=== PATIENT | male | born 1955 | race Caucasian/White ===

== ENCOUNTER 2017-02-12 11:17 | Emergency (ER) | payer MEDICARE, BC ==
[2017-02-12] MEDS ORDERED: Sodium Chloride 0.9% 2.5 ML Syringe FLUSH PRN (11:25)
[2017-02-12] MEDS ORDERED: Sodium Chloride 0.9% 10 ML Syringe FLUSH PRN (11:25)
[2017-02-12] MEDS ORDERED: Aspirin 81 MG Tab.Chew PO ONE (11:26)
--- NOTE | 2017-02-12 11:42 | EDM.PDOC ---
ED HPI GENERAL MEDICAL PROBLEM - General Chief Complaint: Respiratory Problem Stated Complaint: SOB Time Seen by Provider: 02/12/17 11:24 Source of Information: Reports: Patient History Limitations: Reports: No Limitations - History of Present Illness INITIAL COMMENTS - FREE TEXT/NARRATIVE: History of present illness: []Patient started developing substernal chest pain yesterday evening that was described as pain of a 4/10 and has continued to the night into this morning. Patient has a history of COPD and has had been diagnosed with an enlarged heart. He denies any sweating, dizziness, lightheadedness, nausea, vomiting or syncope. Review of systems: As per history of present illness and below otherwise all systems reviewed and negative. Past medical history: As per history of present illness and as reviewed below otherwise noncontributory. Surgical history: As per history of present illness and as reviewed below otherwise noncontributory. Social history: No reported history of drug or alcohol abuse. Family history: As per history of present illness and as reviewed below otherwise noncontributory. Physical exam: General: Well developed, well nourished in NAD HEENT: Atraumatic, normocephalic, pupils reactive, negative for conjunctival pallor or scleral icterus, mucous membranes moist, throat clear, neck supple, nontender, trachea midline. Lungs: Clear to auscultation, breath sounds equal bilaterally expiratory wheezing noted no respiratory distress, chest nontender. Heart: S1S2, regular, negative for clicks, rubs, or JVD. Abdomen: Soft, nondistended, nontender. Negative for masses or hepatosplenomegaly. Negative for costovertebral tenderness. Pelvis: Stable nontender. Genitourinary: Deferred. Rectal: Deferred. Extremities: Atraumatic, negative for cords or calf pain. Neurovascular unremarkable. Neuro: Awake, alert, oriented. Cranial nerves II through XII unremarkable. Cerebellum unremarkable. Motor and sensory unremarkable throughout. Exam nonfocal. Diagnostics: []Chest x-ray and labs are normal Therapeutics: []DuoNeb Solu-Medrol nitroglycerin and aspirin given Impression: []COPD exacerbation Plan: []Continue regular meds at home to use prednisone Dosepak as directed follow-up with her primary care physician next available appointment return to ER if symptoms worsen or change Definitive disposition and diagnosis as appropriate pending reevaluation and review of above. Left Chest Pain Score (Numeric/FACES): 5 - Related Data Allergies Allergy/AdvReac Type Severity Reaction Status Date / Time Sulfa (Sulfonamide Allergy Hives Verified 02/12/17 11:30 Antibiotics) Home Meds: Home Meds Albuterol Sulfate 1 inh NEB QID PRN 04/18/15 [History] Allopurinol [Zyloprim] 300 mg PO DAILY 04/18/15 [History] FLUoxetine [PROzac] 20 mg PO DAILY 04/18/15 [History] LORazepam 1 tab PO TID PRN 04/18/15 [History] Fluticasone/Vilanterol [Breo Ellipta 100-25 MCG Inhalation Kit] 1 puff INH DAILY #1 each 01/25/16 [Rx] Montelukast [Singulair] 10 mg PO BEDTIME #30 tablet 01/25/16 [Rx] Furosemide 40 mg PO BID 02/12/17 [History] Lisinopril 20 mg PO DAILY 02/12/17 [History] Umeclidinium [place] [Incruse Ellipta*] 62.5 mg INH DAILY 02/12/17 [History] predniSONE [Prednisone] 10 mg PO ASDIRECTED #1 tab.ds.pk 02/12/17 [Rx] Past Medical History HEENT History: Reports: Cataract Cardiovascular History: Reports: Hypertension Respiratory History: Reports: COPD, Sleep Apnea Other Respiratory History: cpap and 2 L home o2 Gastrointestinal History: Reports: None Musculoskeletal History: Reports: Gout Neurological History: Reports: None Psychiatric History: Reports: Anxiety Endocrine/Metabolic History: Reports: Obesity/BMI 30+ - Infectious Disease History Infectious Disease History: Reports: Chicken Pox, Measles, Mumps - Past Surgical History GI Surgical History: Reports: Hernia, Abdominal Musculoskeletal Surgical History: Reports: Knee Replacement Social & Family History - Family History Family Medical History: Noncontributory HEENT: Reports: None Cardiac: Reports: None Respiratory: Reports: Asthma, COPD GI: Reports: None : Reports: None OBGYN: Reports: None Musculoskeletal: Reports: None Neurological: Reports: None Psychiatric: Reports: None Endocrine/Metabolic: Reports: Diabetes, type II Hematologic: Reports: None Immunologic: Reports: None Dermatologic: Reports: None Oncologic: Reports: Other (See Below) Other Oncologic Family History: sister had cancer but he wouldn't know which type - Tobacco Use Smoking Status *Q: Never Smoker Years of Tobacco use: 48 Used Tobacco, but Quit: No Second Hand Smoke Exposure: No - Caffeine Use Caffeine Use: Reports: None - Recreational Drug Use Recreational Drug Use: No ED ROS GENERAL - Review of Systems Review Of Systems: See Below (See history of present illness) ED EXAM, GENERAL - Physical Exam Exam: See Below (See history of present illness) Course - Vital Signs Last Recorded V/S: Last Vital Signs Temp 36.4 C 02/12/17 11:21 Pulse 87 02/12/17 12:37 Resp 20 02/12/17 12:37 BP 124/64 02/12/17 12:37 Pulse Ox 99 02/12/17 12:37 - Orders/Labs/Meds Orders: Active Orders 24 hr Category Date Time Status Cardiac Monitoring [RC] . DIRECTED Care 02/12/17 11:24 Active RT Aerosol Therapy [RC] ASDIRECTED Care 02/12/17 11:53 Active RT Aerosol Therapy [RC] ASDIRECTED Care 02/12/17 12:25 Active Sodium Chloride 0.9% [Normal Saline] 1,000 ml Med 02/12/17 11:57 Active IV .Bolus Sodium Chloride 0.9% [Saline Flush] Med 02/12/17 11:25 Active 10 ml FLUSH ASDIRECTED PRN Sodium Chloride 0.9% [Saline Flush] Med 02/12/17 11:25 Active 2.5 ml FLUSH ASDIRECTED PRN Saline Lock Insert [OM.PC] Stat Oth 02/12/17 11:25 Ordered Medication Orders Sodium Chloride (Normal Saline) 1,000 mls @ 999 mls/hr IV .Bolus ONE Stop: 02/12/17 12:57 Last Admin: 02/12/17 12:00 Dose: 999 mls/hr Sodium Chloride (Saline Flush) 10 ml FLUSH ASDIRECTED PRN PRN Reason: Keep Vein Open Last Admin: 02/12/17 11:50 Dose: 10 ml Sodium Chloride (Saline Flush) 2.5 ml FLUSH ASDIRECTED PRN PRN Reason: Keep Vein Open Last Admin: 02/12/17 11:53 Dose: 2.5 ml Labs: Laboratory Tests 02/12/17 02/12/17 02/12/17 Range/Units 11:49 11:49 11:49 WBC 8.93 (4.0-11.0) K/uL RBC 4.04 L (4.50-5.90) M/uL Hgb 13.1 (13.0-17.0) g/dL Hct 39.8 (38.0-50.0) % MCV 98.5 H (80.0-98.0) fL MCH 32.4 H (27.0-32.0) pg MCHC 32.9 (31.0-37.0) g/dL RDW Std Deviation 48.7 (28.0-62.0) fl RDW Coeff of Dean 14 (11.0-15.0) % Plt Count 231 (150-400) K/uL MPV 10.60 (7.40-12.00) fL Neut % (Auto) 73.9 (48.0-80.0) % Lymph % (Auto) 16.0 (16.0-40.0) % [place] % (Auto) 7.6 (0.0-15.0) % Eos % (Auto) 2.1 (0.0-7.0) % Baso % (Auto) 0.4 (0.0-1.5) % Neut # (Auto) 6.6 H (1.4-5.7) K/uL Lymph # (Auto) 1.4 (0.6-2.4) K/uL [place] # (Auto) 0.7 (0.0-0.8) K/uL Eos # (Auto) 0.2 (0.0-0.7) K/uL Baso # (Auto) 0.0 (0.0-0.1) K/uL Nucleated RBC % 0.0 /100WBC Nucleated RBCs # 0 K/uL Sodium 143 (136-146) mmol/L Potassium 4.3 (3.5-5.1) mmol/L Chloride 109 (98-110) mmol/L Carbon Dioxide 27 (21-31) mmol/L BUN 26 H (6.0-23.0) mg/dL Creatinine 0.9 (0.6-1.5) mg/dL Est Cr Clr Drug Dosing 81.28 mL/min Estimated GFR (MDRD) > 60.0 ml/min Glucose 95 (60-110) mg/dL Calcium 8.8 (8.8-10.8) mg/dL Total Bilirubin 0.4 (0.1-1.5) mg/dL AST 21 (5-40) IU/L ALT 27 (8-54) IU/L Alkaline Phosphatase 75 (40-150) Troponin I < 0.10 (0.0-0.29) NG/ML B-Natriuretic Peptide 49 (<100) PG/ML Total Protein 6.1 (6.0-8.0) g/dL Albumin 3.9 (3.4-4.8) g/dL Globulin 2.2 (2.0-3.5) g/dL Albumin/Globulin Ratio 1.8 (1.3-2.8) Meds: Medications Generic Name Dose Route Start Last Admin Trade Name Freq PRN Reason Stop Dose Admin Sodium Chloride 1,000 mls @ 999 mls/hr 02/12/17 11:57 02/12/17 12:00 Normal Saline IV 02/12/17 12:57 999 mls/hr .Bolus ONE Administration Sodium Chloride 10 ml 02/12/17 11:25 02/12/17 11:50 Saline Flush FLUSH 10 ml ASDIRECTED PRN Administration Keep Vein Open Sodium Chloride 2.5 ml 02/12/17 11:25 02/12/17 11:53 Saline Flush FLUSH 2.5 ml ASDIRECTED PRN Administration Keep Vein Open Discontinued Medications Generic Name Dose Route Start Last Admin Trade Name Freq PRN Reason Stop Dose Admin Albuterol 2.5 mg 02/12/17 12:25 02/12/17 12:31 Proventil Neb Soln NEB 02/12/17 12:26 2.5 mg ONETIME ONE Administration Albuterol/Ipratropium 3 ml 02/12/17 11:53 02/12/17 12:01 Duoneb 3.0-0.5 Mg/3 Ml NEB 02/12/17 11:54 3 ml ONETIME ONE Administration Aspirin 324 mg 02/12/17 11:26 02/12/17 11:50 Aspirin PO 02/12/17 11:27 324 mg ONETIME ONE Administration Methylprednisolone Sodium Succinate 125 mg 02/12/17 11:53 02/12/17 12:00 Solu-Medrol IVPUSH 02/12/17 11:54 125 mg ONETIME ONE Administration Nitroglycerin 0.4 mg 02/12/17 11:26 02/12/17 11:53 Nitrostat SL 0.4 mg Q5M PRN Administration Chest Pain Departure - Departure Time of Disposition: 12:47 Disposition: Home, Self-Care 01 Condition: Good Clinical Impression: COPD exacerbation - Discharge Information Prescriptions: predniSONE [Prednisone] 10 mg PO ASDIRECTED #1 tab.ds.pk Forms: ED Department Discharge Additional Instructions: The following information is given to patients seen in the emergency department who are being discharged to home. This information is to outline your options for follow-up care. We provide all patients seen in our emergency department with a follow-up referral. The need for follow-up, as well as the timing and circumstances, are variable depending upon the specifics of your emergency department visit. If you don't have a primary care physician on staff, we will provide you with a referral. We always advise you to contact your personal physician following an emergency department visit to inform them of the circumstance of the visit and for follow-up with them and/or the need for any referrals to a consulting specialist. The emergency department will also refer you to a specialist when appropriate. This referral assures that you have the opportunity for follow-up care with a specialist. All of these measure are taken in an effort to provide you with optimal care, which includes your follow-up. Under all circumstances we always encourage you to contact your private physician who remains a resource for coordinating your care. When calling for follow-up care, please make the office aware that this follow-up is from your recent emergency room visit. If for any reason you are refused follow-up, please contact the [facility] Emergency Department at and asked to speak to the emergency department charge nurse. User nebulizer every 4 hours as needed continue her oxygen use as directed and take prednisone Dosepak as directed on packaging. Workup with primary care physician return if symptoms worsen or change [facility] [address] [place] [id number] - My Orders Last 24 Hours: My Active Orders 02/12/17 11:24 Cardiac Monitoring [RC] . DIRECTED 02/12/17 11:25 Sodium Chloride 0.9% [Saline Flush] 10 ml FLUSH ASDIRECTED PRN Sodium Chloride 0.9% [Saline Flush] 2.5 ml FLUSH ASDIRECTED PRN Saline Lock Insert [OM.PC] Stat 02/12/17 11:53 RT Aerosol Therapy [RC] ASDIRECTED 02/12/17 11:57 Sodium Chloride 0.9% [Normal Saline] 1,000 ml IV .Bolus 02/12/17 12:25 RT Aerosol Therapy [RC] ASDIRECTED - Assessment/Plan Last 24 Hours: My Active Orders 02/12/17 11:24 Cardiac Monitoring [RC] . DIRECTED 02/12/17 11:25 Sodium Chloride 0.9% [Saline Flush] 10 ml FLUSH ASDIRECTED PRN Sodium Chloride 0.9% [Saline Flush] 2.5 ml FLUSH ASDIRECTED PRN Saline Lock Insert [OM.PC] Stat 02/12/17 11:53 RT Aerosol Therapy [RC] ASDIRECTED 02/12/17 11:57 Sodium Chloride 0.9% [Normal Saline] 1,000 ml IV .Bolus 02/12/17 12:25 RT Aerosol Therapy [RC] ASDIRECTED
[2017-02-12] MEDS: Nitroglycerin 0.4 MG Tab.SL SL PRN ×3 (11:50→11:53)
[2017-02-12] MEDS ORDERED: methylPREDNISolone Sodium Succinate 125 MG/2 ML SDV IVPUSH ONE (11:53)
[2017-02-12] MEDS ORDERED: Albuterol/Ipratropium 3.0-0.5 MG/3 ML Neb Soln NEB ONE (11:53)
[2017-02-12] MEDS ORDERED: Sodium Chloride 0.9% 1,000 ML IV ONE (11:57)
[2017-02-12 12:21] LABS: CHLORIDE,CL 109 mmol/L (98-110); SODIUM,NA 143 mmol/L (136-146)
[2017-02-12] MEDS ORDERED: Albuterol 0.083% 2.5 MG/3 ML Neb Soln NEB ONE (12:25)
--- NOTE | 2017-02-12 12:32 | CR ---
EXAMINATION: Portable chest radiograph. HISTORY: Shortness of breath. FINDINGS: The trachea is midline. The cardiomediastinal silhouette is within normal limits. Mild left basilar a telectasis and/or infiltrate is not excluded. No pleural effusion or pneumothorax. Osseous structures appear unremarkable. IMPRESSION: Possible mild left basilar atelectasis/infiltrate.
[2017-02-12 13:02] VITALS: BP 117/54
== END 2017-02-12 13:02 | disposition home or self-care (01) ==
LOC: MW.ED 11:17
DX: J44.1 Chronic obstructive pulmonary disease with (acute) exacerbation (principal); I10 Essential (primary) hypertension; E66.9 Obesity, unspecified; Z88.2 Allergy status to sulfonamides; Z79.899 Other long term (current) drug therapy; Z68.42 Body mass index [BMI] 45.0-49.9, adult
CPT/HCPCS: 36415; 71010; 80053; 83880; 84484; 85025; 93005; 94640; 96361; 96374; 99285; A9270; J2930; J7040; 99284

== ENCOUNTER 2017-03-04 22:03 | Inpatient (IN) | payer MEDICARE, BC ==
[2017-03-04] MEDS ORDERED: Sodium Chloride 0.9% 2.5 ML Syringe FLUSH PRN (22:13)
[2017-03-04] MEDS ORDERED: Sodium Chloride 0.9% 10 ML Syringe FLUSH PRN (22:13)
[2017-03-04] MEDS ORDERED: Albuterol/Ipratropium 3.0-0.5 MG/3 ML Neb Soln NEB ONE (22:13)
[2017-03-04] MEDS ORDERED: methylPREDNISolone Sodium Succinate 125 MG/2 ML SDV IVPUSH ONE (22:13)
--- NOTE | 2017-03-04 22:18 | EDM.PDOC ---
ED HPI GENERAL MEDICAL PROBLEM - General Chief Complaint: Respiratory Problem Stated Complaint: TROUBLE BREATHING Time Seen by Provider: 03/04/17 22:07 - History of Present Illness INITIAL COMMENTS - FREE TEXT/NARRATIVE: HISTORY AND PHYSICAL: History of present illness: The patient is a 61-year-old male who follows with Dr. Bryn Win at [facility] and has a history of COPD for which she is oxygen dependent hypertension and vertigo and presents with a 2-1/2 day history of increasing shortness of breath. The patient was admitted here to our hospital the beginning of January for similar and was seen by cardiology and had his medications adjusted. The patient says he followed up in the clinic and in fact had a repeat echo done last week and is scheduled to see Dr. Isabel in the clinic for those results this . The patient has a history of tobacco use but quit 6 years ago and says that this current flareup feels a little bit like COPD and CHF which she has also had. The patient says he's been coughing and is coughing so hard he is getting lightheaded and dizzy but not passing out. The patient usually does his nebulizer treatments at home twice a day but he has stepped up to 3 times a day but his last treatment was 6 hours ago. The patient also tells me that his oxygen is 3 L by nasal cannula and was initially prescribed to be used as needed and he has been using it more continuously. After his admission he was on a prednisone 4 day dose which she finished and he currently is not taking any prednisone. The patient denies any leg pain or swelling no abdominal pain no vomiting and says he feels discomfort with breathing but is not having any specific chest pain. He states he is compliant with his medications. The patient says that when he does activities or lays down he feels that he is more short of breath Review of systems: As per history of present illness and below otherwise all systems reviewed and negative. Past medical history: As per history of present illness and as reviewed below otherwise noncontributory. Surgical history: As per history of present illness and as reviewed below otherwise noncontributory. Social history: No reported history of drug or alcohol abuse. Family history: As per history of present illness and as reviewed below otherwise noncontributory. Physical exam: General: Well-developed well-nourished overweight man with a very large abdomen was nontoxic and breathless with activity. His O2 sat on his 3 L of oxygen is 92 -93%. Please note that I have reviewed his discharge vitals from his last admission and when he was discharged at that time his O2 sat was also 92% and his heart rate was 109; he is currently more tachycardic in the 130s but he looks like he is having difficulty with his breathing HEENT: Atraumatic, normocephalic, pupils reactive, negative for conjunctival pallor or scleral icterus, mucous membranes moist, throat clear, neck supple, nontender, trachea midline. Lungs: Coarse breath sounds bilaterally with expiratory wheezing bilaterally and diminished breath sounds at the bases, breath sounds equal bilaterally, chest nontender. Patient is actively coughing a dry hacking cough and is having some abdominal work of breathing. Heart: S1S2, regular rhythm but tachycardic rate on my evaluation, no overt murmurs Abdomen: Soft, nondistended, nontender. Negative for masses or hepatosplenomegaly. Hypoactive bowel sounds Pelvis: Stable nontender. Genitourinary: Deferred. Rectal: Deferred. Extremities: Atraumatic, negative for cords or calf pain. Neurovascular unremarkable. No pedal edema or leg asymmetry Neuro: Awake, alert, oriented. Cranial nerves II through XII unremarkable. Cerebellum unremarkable. Motor and sensory unremarkable throughout. Exam nonfocal. Diagnostics: EKG chest x-ray CBC CMP BNP troponin [employer]: IV O2 monitor Solu-Medrol duo neb Please note that I also reviewed Dr. Lincoln, our proof load mechanic, note as well as discharge summary. The patient had an echo on this admission which revealed an EF of about 60%. On the last admission the patient did have Lasix added as well as diltiazem and lisinopril. Patient states compliance to his medication regimen as he is aware of it. On reevaluation the patient states he's feeling much better and his heart rate is down to 101. His blood pressure is 139/77. He says that he was taken off the diltiazem that was started here last month by his doctor and he states compliance with his other medications. 0000: Case was discussed with Dr. White our hospitalist who is aware of this case and agrees to inpatient admission. Impression: Acute on chronic dyspnea/COPD exacerbation Definitive disposition and diagnosis as appropriate pending reevaluation and review of above. Chest Pain Score (Numeric/FACES): 6 - Related Data Allergies Allergy/AdvReac Type Severity Reaction Status Date / Time Sulfa (Sulfonamide Allergy Hives Verified 03/04/17 22:12 Antibiotics) Home Meds: Home Meds Albuterol Sulfate 1 inh NEB QID PRN 04/18/15 [History] Allopurinol [Zyloprim] 300 mg PO DAILY 04/18/15 [History] FLUoxetine [PROzac] 20 mg PO DAILY 04/18/15 [History] LORazepam 1 mg PO TID PRN 04/18/15 [History] Furosemide 40 mg PO BID 02/12/17 [History] Lisinopril 20 mg PO DAILY 02/12/17 [History] Fluticasone/Vilanterol [Breo Ellipta 200-25 Mcg INH] 1 puff INH DAILY 03/04/17 [ History] Montelukast [Singulair] 10 mg PO DAILY 03/04/17 [History] Potassium Chloride 10 meq PO BID 03/04/17 [History] Tamsulosin [Flomax] 0.4 mg PO DAILY 03/04/17 [History] Umeclidinium [place] [Incruse Ellipta*] 62.5 mg INH DAILY 03/04/17 [History] Past Medical History HEENT History: Reports: Cataract Cardiovascular History: Reports: Hypertension Respiratory History: Reports: COPD, Sleep Apnea Other Respiratory History: cpap and 2 L home o2 Gastrointestinal History: Reports: None Musculoskeletal History: Reports: Gout Neurological History: Reports: None Psychiatric History: Reports: Anxiety Endocrine/Metabolic History: Reports: Obesity/BMI 30+ - Infectious Disease History Infectious Disease History: Reports: Chicken Pox, Measles, Mumps - Past Surgical History GI Surgical History: Reports: Hernia, Abdominal Musculoskeletal Surgical History: Reports: Knee Replacement Social & Family History - Family History Family Medical History: Noncontributory HEENT: Reports: None Cardiac: Reports: None Respiratory: Reports: Asthma, COPD GI: Reports: None : Reports: None OBGYN: Reports: None Musculoskeletal: Reports: None Neurological: Reports: None Psychiatric: Reports: None Endocrine/Metabolic: Reports: Diabetes, type II Hematologic: Reports: None Immunologic: Reports: None Dermatologic: Reports: None Oncologic: Reports: Other (See Below) Other Oncologic Family History: sister had cancer but he wouldn't know which type - Tobacco Use Smoking Status *Q: Never Smoker Years of Tobacco use: 48 Used Tobacco, but Quit: No Second Hand Smoke Exposure: No - Caffeine Use Caffeine Use: Reports: None - Recreational Drug Use Recreational Drug Use: No ED ROS GENERAL - Review of Systems Review Of Systems: ROS reveals no pertinent complaints other than HPI. ED EXAM, GENERAL - Physical Exam Exam: See Below (See dictation) Course - Vital Signs Last Recorded V/S: Last Vital Signs Temp 37.3 C 03/04/17 22:08 Pulse 131 H 03/04/17 22:08 Resp 22 H 03/04/17 22:08 BP 139/77 03/04/17 22:08 Pulse Ox 95 03/04/17 22:30 - Orders/Labs/Meds Orders: Active Orders 24 hr Category Date Time Status Patient Status [ADT] Stat ADT 03/05/17 00:07 Ordered Cardiac Monitoring [RC] . DIRECTED Care 03/04/17 22:12 Active Pulse Oximetry [RC] ASDIRECTED Care 03/04/17 22:12 Active RT Aerosol Therapy [RC] ASDIRECTED Care 03/04/17 22:13 Active Chest 1V Frontal [CR] Stat Exams 03/04/17 22:13 Taken Sodium Chloride 0.9% [Normal Saline] 500 ml Med 03/05/17 00:15 Ordered IV STAT Sodium Chloride 0.9% [Saline Flush] Med 03/04/17 22:13 Active 10 ml FLUSH ASDIRECTED PRN Sodium Chloride 0.9% [Saline Flush] Med 03/04/17 22:13 Active 2.5 ml FLUSH ASDIRECTED PRN Saline Lock Insert [OM.PC] Stat Oth 03/04/17 22:12 Ordered Medication Orders Sodium Chloride (Saline Flush) 10 ml FLUSH ASDIRECTED PRN PRN Reason: Keep Vein Open Sodium Chloride (Saline Flush) 2.5 ml FLUSH ASDIRECTED PRN PRN Reason: Keep Vein Open Labs: Laboratory Tests 03/04/17 03/04/17 03/04/17 Range/Units 22:18 22:18 22:18 WBC 12.09 H (4.0-11.0) K/uL RBC 4.06 L (4.50-5.90) M/uL Hgb 13.3 (13.0-17.0) g/dL Hct 39.9 (38.0-50.0) % MCV 98.3 H (80.0-98.0) fL MCH 32.8 H (27.0-32.0) pg MCHC 33.3 (31.0-37.0) g/dL RDW Std Deviation 50.1 (28.0-62.0) fl RDW Coeff of Dean 14 (11.0-15.0) % Plt Count 245 (150-400) K/uL MPV 10.60 (7.40-12.00) fL Neut % (Auto) 74.2 (48.0-80.0) % Lymph % (Auto) 14.2 L (16.0-40.0) % [place] % (Auto) 10.6 (0.0-15.0) % Eos % (Auto) 0.8 (0.0-7.0) % Baso % (Auto) 0.2 (0.0-1.5) % Neut # (Auto) 9.0 H (1.4-5.7) K/uL Lymph # (Auto) 1.7 (0.6-2.4) K/uL [place] # (Auto) 1.3 H (0.0-0.8) K/uL Eos # (Auto) 0.1 (0.0-0.7) K/uL Baso # (Auto) 0.0 (0.0-0.1) K/uL Nucleated RBC % 0.0 /100WBC Nucleated RBCs # 0 K/uL Sodium 141 (136-146) mmol/L Potassium 4.1 (3.5-5.1) mmol/L Chloride 104 (98-110) mmol/L Carbon Dioxide 25 (21-31) mmol/L BUN 27 H (6.0-23.0) mg/dL Creatinine 1.4 (0.6-1.5) mg/dL Est Cr Clr Drug Dosing 52.25 mL/min Estimated GFR (MDRD) 51.2 ml/min Glucose 109 (60-110) mg/dL Calcium 9.1 (8.8-10.8) mg/dL Total Bilirubin 0.4 (0.1-1.5) mg/dL AST 19 (5-40) IU/L ALT 32 (8-54) IU/L Alkaline Phosphatase 90 (40-150) Troponin I < 0.10 (0.0-0.29) NG/ML B-Natriuretic Peptide 42 (<100) PG/ML Total Protein 6.6 (6.0-8.0) g/dL Albumin 3.9 (3.4-4.8) g/dL Globulin 2.7 (2.0-3.5) g/dL Albumin/Globulin Ratio 1.4 (1.3-2.8) Urine Color Urine Appearance Urine pH (5.0-8.0) Ur Specific [place] (1.001-1.035) Urine Protein (NEGATIVE) mg/dL Urine Glucose (UA) (NEGATIVE) mg/dL Urine Ketones (NEGATIVE) mg/dL Urine Occult Blood (NEGATIVE) Urine Nitrite (NEGATIVE) Urine Bilirubin (NEGATIVE) Urine Urobilinogen (<2.0) EU/dL Ur Leukocyte Esterase (NEGATIVE) Urine RBC (0-2/HPF) Urine WBC (0-5/HPF) Ur Epithelial Cells (NONE-FEW) Urine Bacteria (NEGATIVE) Hyaline Casts (0-2/LPF) 03/04/17 Range/Units 23:30 WBC (4.0-11.0) K/uL RBC (4.50-5.90) M/uL Hgb (13.0-17.0) g/dL Hct (38.0-50.0) % MCV (80.0-98.0) fL MCH (27.0-32.0) pg MCHC (31.0-37.0) g/dL RDW Std Deviation (28.0-62.0) fl RDW Coeff of Dean (11.0-15.0) % Plt Count (150-400) K/uL MPV (7.40-12.00) fL Neut % (Auto) (48.0-80.0) % Lymph % (Auto) (16.0-40.0) % [place] % (Auto) (0.0-15.0) % Eos % (Auto) (0.0-7.0) % Baso % (Auto) (0.0-1.5) % Neut # (Auto) (1.4-5.7) K/uL Lymph # (Auto) (0.6-2.4) K/uL [place] # (Auto) (0.0-0.8) K/uL Eos # (Auto) (0.0-0.7) K/uL Baso # (Auto) (0.0-0.1) K/uL Nucleated RBC % /100WBC Nucleated RBCs # K/uL Sodium (136-146) mmol/L Potassium (3.5-5.1) mmol/L Chloride (98-110) mmol/L Carbon Dioxide (21-31) mmol/L BUN (6.0-23.0) mg/dL Creatinine (0.6-1.5) mg/dL Est Cr Clr Drug Dosing mL/min Estimated GFR (MDRD) ml/min Glucose (60-110) mg/dL Calcium (8.8-10.8) mg/dL Total Bilirubin (0.1-1.5) mg/dL AST (5-40) IU/L ALT (8-54) IU/L Alkaline Phosphatase (40-150) Troponin I (0.0-0.29) NG/ML B-Natriuretic Peptide (<100) PG/ML Total Protein (6.0-8.0) g/dL Albumin (3.4-4.8) g/dL Globulin (2.0-3.5) g/dL Albumin/Globulin Ratio (1.3-2.8) Urine Color YELLOW Urine Appearance CLEAR Urine pH 5.5 (5.0-8.0) Ur Specific [place] 1.025 (1.001-1.035) Urine Protein TRACE (NEGATIVE) mg/dL Urine Glucose (UA) NEGATIVE (NEGATIVE) mg/dL Urine Ketones NEGATIVE (NEGATIVE) mg/dL Urine Occult Blood NEGATIVE (NEGATIVE) Urine Nitrite NEGATIVE (NEGATIVE) Urine Bilirubin NEGATIVE (NEGATIVE) Urine Urobilinogen 0.2 (<2.0) EU/dL Ur Leukocyte Esterase NEGATIVE (NEGATIVE) Urine RBC 0-2 (0-2/HPF) Urine WBC 0-3 (0-5/HPF) Ur Epithelial Cells RARE (NONE-FEW) Urine Bacteria FEW (NEGATIVE) Hyaline Casts 0-2 (0-2/LPF) Meds: Medications Generic Name Dose Route Start Last Admin Trade Name Freq PRN Reason Stop Dose Admin Sodium Chloride 10 ml 03/04/17 22:13 Saline Flush FLUSH ASDIRECTED PRN Keep Vein Open Sodium Chloride 2.5 ml 03/04/17 22:13 Saline Flush FLUSH ASDIRECTED PRN Keep Vein Open Discontinued Medications Generic Name Dose Route Start Last Admin Trade Name Ricardo PRN Reason Stop Dose Admin Acetaminophen 1,000 mg 03/04/17 22:44 03/04/17 22:53 Tylenol PO 03/04/17 22:45 1,000 mg NOW ONE Administration Albuterol/Ipratropium 3 ml 03/04/17 22:13 03/04/17 22:25 Duoneb 3.0-0.5 Mg/3 Ml NEB 03/04/17 22:14 3 ml ONETIME ONE Administration Methylprednisolone Sodium Succinate 125 mg 03/04/17 22:13 03/04/17 22:26 Solu-Medrol IVPUSH 03/04/17 22:14 125 mg ONETIME ONE Administration Departure - Departure Time of Disposition: 00:09 Disposition: Admitted As Inpatient 64 Condition: Good Clinical Impression: COPD exacerbation - Discharge Information Referrals: PCP,None [Primary Care Provider] - Forms: ED Department Discharge - My Orders Last 24 Hours: My Active Orders 03/04/17 22:12 Cardiac Monitoring [RC] . DIRECTED Pulse Oximetry [RC] ASDIRECTED Saline Lock Insert [OM.PC] Stat 03/04/17 22:13 RT Aerosol Therapy [RC] ASDIRECTED Chest 1V Frontal [CR] Stat Sodium Chloride 0.9% [Saline Flush] 10 ml FLUSH ASDIRECTED PRN Sodium Chloride 0.9% [Saline Flush] 2.5 ml FLUSH ASDIRECTED PRN 03/05/17 00:07 Patient Status [ADT] Stat 03/05/17 00:15 Sodium Chloride 0.9% [Normal Saline] 500 ml IV STAT - Assessment/Plan Last 24 Hours: My Active Orders 03/04/17 22:12 Cardiac Monitoring [RC] . DIRECTED Pulse Oximetry [RC] ASDIRECTED Saline Lock Insert [OM.PC] Stat 03/04/17 22:13 RT Aerosol Therapy [RC] ASDIRECTED Chest 1V Frontal [CR] Stat Sodium Chloride 0.9% [Saline Flush] 10 ml FLUSH ASDIRECTED PRN Sodium Chloride 0.9% [Saline Flush] 2.5 ml FLUSH ASDIRECTED PRN 03/05/17 00:07 Patient Status [ADT] Stat 03/05/17 00:15 Sodium Chloride 0.9% [Normal Saline] 500 ml IV STAT
[2017-03-04 22:44] LABS: CHLORIDE,CL 104 mmol/L (98-110); SODIUM,NA 141 mmol/L (136-146)
[2017-03-04] MEDS ORDERED: Acetaminophen 325 MG Tab PO ONE (22:44)
[2017-03-05] MEDS ORDERED: Sodium Chloride 0.9% 500 ML IV SCH (00:15)
[2017-03-05] MEDS ORDERED: Levofloxacin/Dextrose 5%-Water 500 MG in Premix Bag 1 BAG IV SCH (02:00)
[2017-03-05] MEDS ORDERED: Morphine 4 MG/ML Syringe IVPUSH PRN (02:17)
[2017-03-05] MEDS ORDERED: Albuterol 6.7 GM Inhaler INH PRN (02:22)
[2017-03-05] MEDS: Acetaminophen 500 MG Tab PO PRN ×2 (03:42→17:10)
[2017-03-05] MEDS: methylPREDNISolone Sodium Succinate 125 MG/2 ML SDV IVPUSH SCH ×4 (04:25→17:10)
[2017-03-05] MEDS: Albuterol/Ipratropium 3.0-0.5 MG/3 ML Neb Soln NEB SCH ×5 (06:07→21:51)
[2017-03-05] MEDS ORDERED: Furosemide 20 MG Tab PO SCH (08:00)
[2017-03-05] MEDS: Allopurinol 300 MG Tab PO SCH (08:32)
[2017-03-05] MEDS: Montelukast 10 MG Tab PO SCH (08:33)
[2017-03-05] MEDS: Tamsulosin 0.4 MG Cap.ER PO SCH (08:33)
[2017-03-05] MEDS: FLUoxetine 20 MG Cap PO SCH (08:34)
[2017-03-05] MEDS: INCRUSE 62.5 MCG INH SCH (08:59)
[2017-03-05] MEDS: BREO ELLIPTA 100-25 MCG INH SCH (08:59)
[2017-03-05] MEDS ORDERED: Lisinopril 10 MG Tab PO SCH (09:00)
[2017-03-05] MEDS ORDERED: Potassium Chloride 10 MEQ Tab.ER PO SCH (09:00)
--- NOTE | 2017-03-05 10:10 | PCM.DCSUM1 ---
Discharge Summary - Discharge Data Discharge Disposition: Home, Self-Care 01 Condition: Fair - Discharge Plan Home Medications: Home Meds Albuterol Sulfate 1 inh NEB QID PRN 04/18/15 [History] Allopurinol [Zyloprim] 300 mg PO DAILY 04/18/15 [History] FLUoxetine [PROzac] 20 mg PO DAILY 04/18/15 [History] LORazepam 1 mg PO TID PRN 04/18/15 [History] Furosemide 40 mg PO DAILY 02/12/17 [History] Lisinopril 20 mg PO DAILY 02/12/17 [History] Fluticasone/Vilanterol [Breo Ellipta 200-25 Mcg INH] 1 puff INH DAILY 03/04/17 [ History] Montelukast [Singulair] 10 mg PO DAILY 03/04/17 [History] Potassium Chloride 10 meq PO BID 03/04/17 [History] Tamsulosin [Flomax] 0.4 mg PO DAILY 03/04/17 [History] Umeclidinium [place] [Incruse Ellipta*] 62.5 mg INH DAILY 03/04/17 [History] Polyethylene Glycol 3350 [MiraLAX] 17 gm PO BEDTIME 03/05/17 [History] diphenhydrAMINE [Benadryl] 50 mg PO BEDTIME 03/05/17 [History] Forms: ED Department Discharge Referrals: PCP,None [Primary Care Provider] - - Patient Data Vitals - Most Recent: Last Vital Signs Temp 97.5 F 03/05/17 07:36 Pulse 87 03/05/17 07:36 Resp 18 03/05/17 07:36 BP 111/54 L 03/05/17 08:34 Pulse Ox 96 03/05/17 07:36 Weight - Most Recent: 129 kg I&O - Last 24 hours: Intake & Output 03/04/17 03/05/17 03/05/17 22:59 06:59 14:59 Intake Total 200 Output Total 250 Balance -50 Lab Results - Last 24 hrs: Laboratory Results - last 24 hr 03/05/17 03/05/17 Range/Units 04:35 04:35 WBC 10.93 (4.0-11.0) K/uL RBC 3.89 L (4.50-5.90) M/uL Hgb 12.5 L (13.0-17.0) g/dL Hct 38.2 (38.0-50.0) % MCV 98.2 H (80.0-98.0) fL MCH 32.1 H (27.0-32.0) pg MCHC 32.7 (31.0-37.0) g/dL RDW Std Deviation 49.4 (28.0-62.0) fl RDW Coeff of Dean 14 (11.0-15.0) % Plt Count 220 (150-400) K/uL MPV 10.90 (7.40-12.00) fL Neut % (Auto) 93.9 H (48.0-80.0) % Lymph % (Auto) 4.8 L (16.0-40.0) % [place] % (Auto) 1.2 (0.0-15.0) % Eos % (Auto) 0.0 (0.0-7.0) % Baso % (Auto) 0.1 (0.0-1.5) % Neut # (Auto) 10.3 H (1.4-5.7) K/uL Lymph # (Auto) 0.5 L (0.6-2.4) K/uL [place] # (Auto) 0.1 (0.0-0.8) K/uL Eos # (Auto) 0.0 (0.0-0.7) K/uL Baso # (Auto) 0.0 (0.0-0.1) K/uL Nucleated RBC % 0.0 /100WBC Nucleated RBCs # 0 K/uL Sodium 138 (136-146) mmol/L Potassium 5.0 (3.5-5.1) mmol/L Chloride 102 (98-110) mmol/L Carbon Dioxide 25 (21-31) mmol/L BUN 32 H (6.0-23.0) mg/dL Creatinine 1.6 H (0.6-1.5) mg/dL Est Cr Clr Drug Dosing 45.89 mL/min Estimated GFR (MDRD) 43.9 ml/min Glucose 179 H (60-110) mg/dL Calcium 8.4 L (8.8-10.8) mg/dL Med Orders - Current: Current Medications Acetaminophen (Tylenol Extra Strength) 500 mg PO Q4H PRN PRN Reason: Pain (mild 1-3) Last Admin: 03/05/17 03:42 Dose: 500 mg Albuterol (Proventil Hfa) 0 gm INH QID PRN PRN Reason: Dyspnea Albuterol/Ipratropium (Duoneb 3.0-0.5 Mg/3 Ml) 3 ml NEB Q4HRRT [facility] Last Admin: 03/05/17 09:41 Dose: 3 ml Allopurinol (Zyloprim) 300 mg PO DAILY [facility] Last Admin: 03/05/17 08:32 Dose: 300 mg Fluoxetine HCl (Prozac) 20 mg PO DAILY [facility] Last Admin: 03/05/17 08:34 Dose: 20 mg Furosemide (Lasix) 40 mg PO BIDDIURETIC [facility] Last Admin: 03/05/17 08:33 Dose: 40 mg Sodium Chloride (Normal Saline) 500 mls @ 999 mls/hr IV STAT [facility] Last Admin: 03/05/17 00:19 Dose: 999 mls/hr Levofloxacin/Dextrose 500 mg/ (Premix) 100 mls @ 100 mls/hr IV Q24H [facility] Last Admin: 03/05/17 03:06 Dose: 100 mls/hr Lisinopril (Prinivil) 20 mg PO DAILY [facility] Last Admin: 03/05/17 08:34 Dose: 20 mg Lorazepam (Ativan) 1 mg PO TID PRN PRN Reason: Anxiety Methylprednisolone Sodium Succinate (Solu-Medrol) 125 mg IVPUSH Q6HR [facility] Last Admin: 03/05/17 05:39 Dose: Not Given Montelukast Sodium (Singulair) 10 mg PO DAILY [facility] Last Admin: 03/05/17 08:33 Dose: 10 mg Morphine Sulfate (Morphine) 4 mg IVPUSH Q2H PRN PRN Reason: Pain Last Admin: 03/05/17 10:06 Dose: 4 mg Breo Ellipta 100-25 (Mcg) 1 each INH DAILY [facility] Last Admin: 03/05/17 08:59 Dose: 1 each Incruse 62.5 Mcg 1 each INH DAILY [facility] Last Admin: 03/05/17 08:59 Dose: 1 each Sodium Chloride (Saline Flush) 10 ml FLUSH ASDIRECTED PRN PRN Reason: Keep Vein Open Sodium Chloride (Saline Flush) 2.5 ml FLUSH ASDIRECTED PRN PRN Reason: Keep Vein Open Tamsulosin HCl (Flomax) 0.4 mg PO DAILY [facility] Last Admin: 03/05/17 08:33 Dose: 0.4 mg Discontinued Medications Acetaminophen (Tylenol) 1,000 mg PO NOW ONE Stop: 03/04/17 22:45 Last Admin: 03/04/17 22:53 Dose: 1,000 mg Albuterol/Ipratropium (Duoneb 3.0-0.5 Mg/3 Ml) 3 ml NEB ONETIME ONE Stop: 03/04/17 22:14 Last Admin: 03/04/17 22:25 Dose: 3 ml Methylprednisolone Sodium Succinate (Solu-Medrol) 125 mg IVPUSH ONETIME ONE Stop: 03/04/17 22:14 Last Admin: 03/04/17 22:26 Dose: 125 mg Potassium Chloride (Klor-Con 10) 10 meq PO BID [facility] *Q Meaningful Use (DIS) - VTE *Q VTE Criteria *Q: - Stroke *Q Stroke Criteria *Q: - AMI *Q AMI Criteria *Q:
--- NOTE | 2017-03-05 10:11 | PCM.HP ---
H&P History of Present Illness - General Date of Service: 03/05/17 Admit Problem/Dx: Admission Diagnosis/Problem Admission Diagnosis/Problem COPD, Moderate chronic obstructive pulmonary disease/ CAP Source of Information: Patient History Limitations: Reports: No Limitations - History of Present Illness Initial Comments - Free Text/Narative: THis 61 year old male with pmh of diastolic CHF, COPD, oxygen dependent at home with activity, HTN, and morbid obesity presented to the ED last evening with complaints of worsening dyspnea, chest tightness and productive cough. He reports some feverish feelings at home with sweating and feeling hot, but did not check his temperature. He reports no orthopnea or peripheral edema. He denies chest pain, some tightness with dyspnea. No radiating of this pain. He reports no abdominal pain, GERD or other pain. No palpitations. He denies diarrhea, but does confirm constipation, Miralax usually helps. He reports continuing to follow medication regimen, hasn't smoked in 6 years and denies alochol use. In the ED leukocytosis noted, 12,090. Na 141, K+4.1 BUN 27, Cr 1.4 CXR was negative for infiltrates or pleural effusions. He was noted to be tachycardic, 130s in the ED. He did increase his oxygen to 3 L NC, normally on 2 sating mid 90s. He was given Levaquin and Solumderol. He was admitted for COPD exacerbation. PCP, Dr Isabel. Chest Pain Score (Numeric/FACES): 4 Headache Pain Score (Numeric/FACES): 3 - Related Data Allergies/Adverse Reactions: Allergies Allergy/AdvReac Type Severity Reaction Status Date / Time Sulfa (Sulfonamide Allergy Hives Verified 03/04/17 22:12 Antibiotics) Home Medications: Home Meds Albuterol Sulfate 1 inh NEB QID PRN 04/18/15 [History] Allopurinol [Zyloprim] 300 mg PO DAILY 04/18/15 [History] FLUoxetine [PROzac] 20 mg PO DAILY 04/18/15 [History] LORazepam 1 mg PO TID PRN 04/18/15 [History] Furosemide 40 mg PO DAILY 02/12/17 [History] Lisinopril 20 mg PO DAILY 02/12/17 [History] Fluticasone/Vilanterol [Breo Ellipta 200-25 Mcg INH] 1 puff INH DAILY 03/04/17 [ History] Montelukast [Singulair] 10 mg PO DAILY 03/04/17 [History] Potassium Chloride 10 meq PO BID 03/04/17 [History] Tamsulosin [Flomax] 0.4 mg PO DAILY 03/04/17 [History] Umeclidinium [place] [Incruse Ellipta*] 62.5 mg INH DAILY 03/04/17 [History] Polyethylene Glycol 3350 [MiraLAX] 17 gm PO BEDTIME 03/05/17 [History] diphenhydrAMINE [Benadryl] 50 mg PO BEDTIME 03/05/17 [History] Past Medical History HEENT History: Reports: Cataract, Other (See Below) Other HEENT History: 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 Denies: Afib, Blood Clots/VTE/DVT Respiratory History: Reports: COPD, Sleep Apnea Other Respiratory History: cpap and 2 L home o2 Gastrointestinal History: Reports: None Musculoskeletal History: Reports: Gout Neurological History: Reports: None. Denies: CVA, TIA Psychiatric History: Reports: Anxiety Endocrine/Metabolic History: Reports: Obesity/BMI 30+ - Infectious Disease History Infectious Disease History: Reports: Chicken Pox, Measles, Mumps - Past Surgical History Cardiovascular Surgical History: Reports: None Respiratory Surgical History: Reports: None GI Surgical History: Reports: Hernia, Abdominal Musculoskeletal Surgical History: Reports: Knee Replacement Social & Family History - Family History Family Medical History: Noncontributory HEENT: Reports: None Cardiac: Reports: Hypertension Respiratory: Reports: Asthma, COPD GI: Reports: None : Reports: None OBGYN: Reports: None Musculoskeletal: Reports: None Neurological: Reports: None Psychiatric: Reports: None Endocrine/Metabolic: Reports: Diabetes, type II Hematologic: Reports: None Immunologic: Reports: None Dermatologic: Reports: None Oncologic: Reports: Other (See Below) Other Oncologic Family History: sister had cancer but he wouldn't know which type - Tobacco Use Smoking Status *Q: Former Smoker Years of Tobacco use: 48 Used Tobacco, but Quit: Yes Month Tobacco Last Used: 6 years ago Second Hand Smoke Exposure: No - Caffeine Use Caffeine Use: Reports: Coffee Caffeine Use Comment: takes 1 pot - Recreational Drug Use Recreational Drug Use: No H&P Review of Systems - Review of Systems: Review Of Systems: See Below General: Reports: Fever, Chills, Fatigue HEENT: Reports: No Symptoms. Denies: Headaches, Post Nasal Drip, Sinus Congestion, Sore Throat Pulmonary: Reports: Shortness of Breath, Wheezing, Pleuritic Chest Pain, Cough, Sputum. Denies: Hemoptysis Cardiovascular: Reports: No Symptoms. Denies: Chest Pain, Palpitations, Orthopnea, Edema Gastrointestinal: Reports: Constipation. Denies: Abdominal Pain, Black Stool, Bloody Stool, Nausea, Vomiting Genitourinary: Reports: No Symptoms. Denies: Dysuria, Frequency, Burning, Pain Musculoskeletal: Reports: No Symptoms. Denies: Neck Pain Psychiatric: Reports: No Symptoms. Denies: Confusion Immunologic: Reports: No Symptoms Exam - Exam Exam: See Below - Vital Signs Vital Signs: Last Vital Signs Temp 97.5 F 03/05/17 07:36 Pulse 87 03/05/17 07:36 Resp 18 03/05/17 07:36 BP 111/54 L 03/05/17 08:34 Pulse Ox 96 03/05/17 07:36 Weight: 129 kg - Exam Quality Assessment: Supplemental Oxygen, DVT Prophylaxis General: Alert, Oriented, Cooperative HEENT: Conjunctiva Clear, Mucosa Moist & [place], Pupils Reactive Neck: Supple, Trachea Midline, 2 Lungs: Decreased Breath Sounds, Rhonchi (L basilar), Wheezing, Other ( productive cough, with green phlegm) Cardiovascular: Regular Rate, Regular Rhythm, Normal S1, Normal S2 GI/Abdominal Exam: Normal Bowel Sounds, Soft, Non-Tender, No Organomegaly, No Distention, No Abnormal Bruit, No Mass, Pelvis Stable, Other (abdominal hernia noted upon sitting up.) Extremities: Normal Inspection, Normal Range of Motion, Non-Tender, No Pedal Edema, Normal Capillary Refill Neuro Extensive - Mental Status: Alert, Oriented x3, Normal Mood/Affect, Normal Cognition Neuro Extensive - Motor, Sensory, Reflexes: CN II-XII Intact Psychiatric: Alert, Normal Affect, Normal Mood - Patient Data Lab Results Last 24 hrs: Laboratory Results - last 24 hr 03/05/17 03/05/17 Range/Units 04:35 04:35 WBC 10.93 (4.0-11.0) K/uL RBC 3.89 L (4.50-5.90) M/uL Hgb 12.5 L (13.0-17.0) g/dL Hct 38.2 (38.0-50.0) % MCV 98.2 H (80.0-98.0) fL MCH 32.1 H (27.0-32.0) pg MCHC 32.7 (31.0-37.0) g/dL RDW Std Deviation 49.4 (28.0-62.0) fl RDW Coeff of Dean 14 (11.0-15.0) % Plt Count 220 (150-400) K/uL MPV 10.90 (7.40-12.00) fL Neut % (Auto) 93.9 H (48.0-80.0) % Lymph % (Auto) 4.8 L (16.0-40.0) % [place] % (Auto) 1.2 (0.0-15.0) % Eos % (Auto) 0.0 (0.0-7.0) % Baso % (Auto) 0.1 (0.0-1.5) % Neut # (Auto) 10.3 H (1.4-5.7) K/uL Lymph # (Auto) 0.5 L (0.6-2.4) K/uL [place] # (Auto) 0.1 (0.0-0.8) K/uL Eos # (Auto) 0.0 (0.0-0.7) K/uL Baso # (Auto) 0.0 (0.0-0.1) K/uL Nucleated RBC % 0.0 /100WBC Nucleated RBCs # 0 K/uL Sodium 138 (136-146) mmol/L Potassium 5.0 (3.5-5.1) mmol/L Chloride 102 (98-110) mmol/L Carbon Dioxide 25 (21-31) mmol/L BUN 32 H (6.0-23.0) mg/dL Creatinine 1.6 H (0.6-1.5) mg/dL Est Cr Clr Drug Dosing 45.89 mL/min Estimated GFR (MDRD) 43.9 ml/min Glucose 179 H (60-110) mg/dL Calcium 8.4 L (8.8-10.8) mg/dL Result Diagrams: 03/05/17 04:35 03/05/17 04:35 *Q Meaningful Use (ADM) - VTE *Q VTE Criteria *Q: - Stroke *Q Stroke Criteria *Q: - AMI *Q AMI Criteria *Q: - Problem List (1) CAP (community acquired pneumonia) SNOMED Code(s): 946564665 ICD Code: J18.9 - PNEUMONIA, UNSPECIFIED ORGANISM Status: Acute Current Visit: Yes Qualifiers: Laterality: unspecified laterality Qualified Code(s): J18.9 - Pneumonia, unspecified organism (2) COPD exacerbation SNOMED Code(s): 753444961508259 ICD Code: J44.1 - CHRONIC OBSTRUCTIVE PULMONARY DISEASE W (ACUTE) EXACERBATION Status: Acute Current Visit: Yes (3) Morbid obesity SNOMED Code(s): 451399175 ICD Code: E66.01 - MORBID (SEVERE) OBESITY DUE TO EXCESS CALORIES Status: Chronic Current Visit: Yes (4) Diastolic CHF SNOMED Code(s): 819071929 ICD Code: I50.30 - UNSPECIFIED DIASTOLIC (CONGESTIVE) HEART FAILURE Status : Chronic Current Visit: No Qualifiers: Congestive heart failure chronicity: chronic Qualified Code(s): I50.32 - Chronic diastolic (congestive) heart failure (5) Hypertension SNOMED Code(s): 83368163 ICD Code: I10 - ESSENTIAL (PRIMARY) HYPERTENSION Status: Chronic Current Visit: No Qualifiers: Hypertension type: essential hypertension Qualified Code(s): I10 - Essential (primary) hypertension (6) Oxygen dependent SNOMED Code(s): 122571476412 ICD Code: Z99.81 - DEPENDENCE ON SUPPLEMENTAL OXYGEN Status: Chronic Current Visit: Yes Problem List Initiated/Reviewed/Updated: Yes Orders Last 24hrs: Active Orders 24 hr Category Date Time Status RT Aerosol Therapy [RC] ASDIRECTED Care 03/05/17 02:19 Active Regular Diet [DIET] Diet 03/05/17 Breakfast Active BMP [BASIC METABOLIC PANEL,BMP] [CHEM] DAILY Lab 03/06/17 05:00 Ordered BMP [BASIC METABOLIC PANEL,BMP] [CHEM] DAILY Lab 03/07/17 05:00 Ordered CBC WITH AUTO DIFF [HEME] DAILY Lab 03/06/17 05:00 Ordered CBC WITH AUTO DIFF [HEME] DAILY Lab 03/07/17 05:00 Ordered Acetaminophen [Tylenol Extra Strength] Med 03/05/17 03:22 Active 500 mg PO Q4H PRN Albuterol [Proventil HFA] Med 03/05/17 02:22 Active 0 gm INH QID PRN Albuterol/Ipratropium [DuoNeb 3.0-0.5 MG/3 ML] Med 03/05/17 06:00 Active 3 ml NEB Q4HRRT Allopurinol [Zyloprim] Med 03/05/17 09:00 Active 300 mg PO DAILY FLUoxetine [PROzac] Med 03/05/17 09:00 Active 20 mg PO DAILY Furosemide [Lasix] Med 03/05/17 08:00 Active 40 mg PO BIDDIURETIC LORazepam [Ativan] Med 03/05/17 02:22 Active 1 mg PO TID PRN Levofloxacin/Dextrose 5%-Water [Levaquin in D5W 500 MG/ Med 03/05/17 02:00 Active 100 ML] 500 mg Premix Bag 1 bag IV Q24H Lisinopril [Prinivil] Med 03/05/17 09:00 Active 20 mg PO DAILY Montelukast [Singulair] Med 03/05/17 09:00 Active 10 mg PO DAILY Morphine Med 03/05/17 02:17 Active 4 mg IVPUSH Q2H PRN Patient's Own Medication [Ptom] Med 03/05/17 09:00 Active 1 each INH DAILY Patient's Own Medication [Ptom] Med 03/05/17 09:00 Active 1 each INH DAILY Sodium Chloride 0.9% [Normal Saline] 500 ml Med 03/05/17 00:15 Active IV STAT Tamsulosin [Flomax] Med 03/05/17 09:00 Active 0.4 mg PO DAILY methylPREDNISolone Sod Succ [Solu-MEDROL] Med 03/05/17 05:00 Active 125 mg IVPUSH Q6HR Medication Orders Acetaminophen (Tylenol Extra Strength) 500 mg PO Q4H PRN PRN Reason: Pain (mild 1-3) Last Admin: 03/05/17 03:42 Dose: 500 mg Albuterol (Proventil Hfa) 0 gm INH QID PRN PRN Reason: Dyspnea Albuterol/Ipratropium (Duoneb 3.0-0.5 Mg/3 Ml) 3 ml NEB Q4HRRT [facility] Last Admin: 03/05/17 09:41 Dose: 3 ml Admin: 03/05/17 06:07 Dose: 3 ml Allopurinol (Zyloprim) 300 mg PO DAILY [facility] [place] Last Admin: 03/05/17 08:32 Dose: 300 mg Fluoxetine HCl (Prozac) 20 mg PO DAILY [facility] [place] Last Admin: 03/05/17 08:34 Dose: 20 mg Furosemide (Lasix) 40 mg PO BIDDIURETIC [facility] [place] Last Admin: 03/05/17 08:33 Dose: 40 mg Sodium Chloride (Normal Saline) 500 mls @ 999 mls/hr IV STAT [facility] [place] Last Admin: 03/05/17 00:19 Dose: 999 mls/hr Levofloxacin/Dextrose 500 mg/ (Premix) 100 mls @ 100 mls/hr IV Q24H [facility] [place] Last Admin: 03/05/17 03:06 Dose: 100 mls/hr Lisinopril (Prinivil) 20 mg PO DAILY [facility] [place] Last Admin: 03/05/17 08:34 Dose: 20 mg Lorazepam (Ativan) 1 mg PO TID PRN PRN Reason: Anxiety Methylprednisolone Sodium Succinate (Solu-Medrol) 125 mg IVPUSH Q6HR [facility] [place] Last Admin: 03/05/17 05:39 Dose: Not Given Admin: 03/05/17 04:25 Dose: 125 mg Montelukast Sodium (Singulair) 10 mg PO DAILY [facility] [place] Last Admin: 03/05/17 08:33 Dose: 10 mg Morphine Sulfate (Morphine) 4 mg IVPUSH Q2H PRN PRN Reason: Pain Last Admin: 03/05/17 10:06 Dose: 4 mg Breo Ellipta 100-25 (Mcg) 1 each INH DAILY [facility] [place] Last Admin: 03/05/17 08:59 Dose: 1 each Incruse 62.5 Mcg 1 each INH DAILY [facility] [place] Last Admin: 03/05/17 08:59 Dose: 1 each Sodium Chloride (Saline Flush) 10 ml FLUSH ASDIRECTED PRN PRN Reason: Keep Vein Open Sodium Chloride (Saline Flush) 2.5 ml FLUSH ASDIRECTED PRN PRN Reason: Keep Vein Open Tamsulosin HCl (Flomax) 0.4 mg PO DAILY [facility] [place] Last Admin: 03/05/17 08:33 Dose: 0.4 mg Assessment/Plan Comment:: This 61 year old male admitted with clinical CAP and COPD exacerbation. 1. CAP: CXR doesn't show infiltrate but patient is coughing up green phlegm and has objective fevers at home. Will Continue Levaquin 750 mg Q48h. Sputum culture pending. Leukocytosis improved. 2. COPD exacerbation: Likely brought on by pneumonia. Will treat with Solumedrol 125 mg IV Q6 hrs. Will monitor for today. Still remains on 3 L NC, baseline is 2. 3. Hx diastolic CHF: Stable, no signs of acute exacerbation. Continue Lasix 40 mg BID. Monitor electrolytes and renal function which is slightly elevated today. 4. HTN: Hold Lisinopril due to renal function. for now. VTE prophylaxis: Heparin Q12h Dispo: 2-3 days pending improvement.
--- NOTE | 2017-03-05 11:26 | CR ---
EXAM DATE: 03/05/17 PATIENT'S AGE: 61 Patient: ASTER BURNETT Facility: [place], [place] Site . Site : 1955 Study: XRay Chest [id number]/13/2017 10:50:14 PM Ordering Physician: Serena Young Final Report: INDICATION: Cough for 3 days. TECHNIQUE: Chest radiograph 1 view COMPARISON: 02/12/2017. FINDINGS: Cardiovascular and mediastinum: The heart silhouette is normal in size and morphology. The mediastinum is normal in appearance. Lungs and pleural spaces: Both lungs are unremarkable in appearance. No sign of pleural effusion seen. No pneumothorax is identified. Bones and soft tissues: No significant findings. IMPRESSION: 1. No acute cardiopulmonary disease is seen. Improved aeration at the left lung base from prior study. Dictated by Amrit Wang MD @ 03/04/2017 11:00:48 PM Dictated by: Amrit Wang MD @ 03/04/2017 23:00:54 (Electronic Signature) Report Signed by Proxy. [facility] SYSTEMLatonia
[2017-03-05] MEDS ORDERED: Polyethylene Glycol 3350 Powder 17 GM Packet PO PRN (13:13)
[2017-03-05] MEDS: Heparin Sodium 5,000 Units/ML Vial SUBCUT SCH (20:34)
[2017-03-05] MEDS: LORazepam 1 MG Tab PO PRN (20:34)
[2017-03-06] MEDS: methylPREDNISolone Sodium Succinate 125 MG/2 ML SDV IVPUSH SCH ×3 (00:54→11:47)
[2017-03-06] MEDS: Albuterol/Ipratropium 3.0-0.5 MG/3 ML Neb Soln NEB SCH ×6 (02:08→21:52)
[2017-03-06] MEDS: Acetaminophen 500 MG Tab PO PRN ×2 (02:09→20:54)
[2017-03-06] MEDS ORDERED: Levofloxacin/Dextrose 5%-Water 750 MG in Premix Bag 1 BAG IV SCH (04:00)
[2017-03-06] MEDS ORDERED: Magnesium Sulfate/Water 2 GM in Premix Bag 1 BAG IV ONE (07:49)
[2017-03-06] MEDS: Allopurinol 300 MG Tab PO SCH (08:08)
[2017-03-06] MEDS: Tamsulosin 0.4 MG Cap.ER PO SCH (08:08)
[2017-03-06] MEDS: Furosemide 40 MG Tab PO SCH (08:08)
[2017-03-06] MEDS: FLUoxetine 20 MG Cap PO SCH (08:08)
[2017-03-06] MEDS: Montelukast 10 MG Tab PO SCH (08:08)
[2017-03-06] MEDS: Heparin Sodium 5,000 Units/ML Vial SUBCUT SCH ×2 (08:09→20:48)
[2017-03-06] MEDS ORDERED: Polyethylene Glycol 3350 Powder 17 GM Packet PO PRN (09:11)
--- NOTE | 2017-03-06 09:19 | PCM.PN ---
- General Info Date of Service: 03/06/17 Admission Dx/Problem (Free Text): Admission Diagnosis/Problem Admission Diagnosis/Problem COPD, Moderate chronic obstructive pulmonary disease/ CAP Subjective Update: Doing ok today, did not sleep at all due to coughing. Breathing is about the same, coughing is biggest complaint. No chest pressure/pain and no palpitations. Functional Status: Reports: Pain Controlled, Tolerating Diet, Ambulating, Urinating - Review of Systems General: Reports: No Symptoms. Denies: Fever HEENT: Reports: No Symptoms. Denies: Sinus Congestion, Sore Throat Pulmonary: Reports: Shortness of Breath, Cough, Sputum, Wheezing. Denies: Hemoptysis Cardiovascular: Reports: No Symptoms. Denies: Chest Pain, Palpitations, Edema Gastrointestinal: Reports: Constipation. Denies: Abdominal Pain, Nausea, Vomiting Genitourinary: Reports: No Symptoms. Denies: Dysuria, Frequency, Burning Neurological: Reports: No Symptoms Psychiatric: Reports: No Symptoms - Patient Data Vitals - Most Recent: Last Vital Signs Temp 97.7 F 03/06/17 04:00 Pulse 93 03/06/17 04:00 Resp 18 03/06/17 04:00 BP 123/59 L 03/06/17 04:00 Pulse Ox 94 L 03/06/17 04:00 Weight - Most Recent: 130.226 kg I&O - Last 24 Hours: Intake & Output 03/05/17 03/06/17 03/06/17 22:59 06:59 14:59 Intake Total 1336 750 Output Total 300 1075 Balance 1036 -325 Lab Results Last 24 Hours: Laboratory Results - last 24 hr 03/06/17 03/06/17 Range/Units 04:59 04:59 WBC 11.23 H (4.0-11.0) K/uL RBC 3.64 L (4.50-5.90) M/uL Hgb 11.7 L (13.0-17.0) g/dL Hct 35.4 L (38.0-50.0) % MCV 97.3 (80.0-98.0) fL MCH 32.1 H (27.0-32.0) pg MCHC 33.1 (31.0-37.0) g/dL RDW Std Deviation 48.9 (28.0-62.0) fl RDW Coeff of Dean 14 (11.0-15.0) % Plt Count 222 (150-400) K/uL MPV 11.00 (7.40-12.00) fL Neut % (Auto) 92.1 H (48.0-80.0) % Lymph % (Auto) 4.5 L (16.0-40.0) % Fisher % (Auto) 3.4 (0.0-15.0) % Eos % (Auto) 0.0 (0.0-7.0) % Baso % (Auto) 0.0 (0.0-1.5) % Neut # (Auto) 10.4 H (1.4-5.7) K/uL Lymph # (Auto) 0.5 L (0.6-2.4) K/uL Fisher # (Auto) 0.4 (0.0-0.8) K/uL Eos # (Auto) 0.0 (0.0-0.7) K/uL Baso # (Auto) 0.0 (0.0-0.1) K/uL Nucleated RBC % 0.0 /100WBC Nucleated RBCs # 0 K/uL Sodium 138 (136-146) mmol/L Potassium 4.3 (3.5-5.1) mmol/L Chloride 102 (98-110) mmol/L Carbon Dioxide 23 (21-31) mmol/L BUN 42 H (6.0-23.0) mg/dL Creatinine 1.3 (0.6-1.5) mg/dL Est Cr Clr Drug Dosing 56.48 mL/min Estimated GFR (MDRD) 55.8 ml/min Glucose 204 H (60-110) mg/dL Calcium 7.7 L (8.8-10.8) mg/dL Magnesium 1.5 (1.5-2.3) mEq/L [place] Results Last 24 Hours: Microbiology 03/05/17 10:16 Gram Stain - Preliminary Sputum - Expectorated Med Orders - Current: Current Medications Acetaminophen (Tylenol Extra Strength) 500 mg PO Q4H PRN PRN Reason: Pain (mild 1-3) Last Admin: 03/06/17 02:09 Dose: 500 mg Albuterol (Proventil Hfa) 0 gm INH QID PRN PRN Reason: Dyspnea Albuterol/Ipratropium (Duoneb 3.0-0.5 Mg/3 Ml) 3 ml NEB Q4HRRT [facility] Last Admin: 03/06/17 06:18 Dose: 3 ml Allopurinol (Zyloprim) 300 mg PO DAILY [facility] Last Admin: 03/06/17 08:08 Dose: 300 mg Fluoxetine HCl (Prozac) 20 mg PO DAILY [facility] Last Admin: 03/06/17 08:08 Dose: 20 mg Furosemide (Lasix) 40 mg PO DAILY [facility] Last Admin: 03/06/17 08:08 Dose: 40 mg Heparin Sodium (Porcine) (Heparin Sodium) 5,000 units SUBCUT Q12HR [facility] Last Admin: 03/06/17 08:09 Dose: 5,000 units Sodium Chloride (Normal Saline) 500 mls @ 999 mls/hr IV STAT [facility] Last Admin: 03/05/17 00:19 Dose: 999 mls/hr Levofloxacin/Dextrose 750 mg/ (Premix) 150 mls @ 100 mls/hr IV Q24H [facility] Lorazepam (Ativan) 1 mg PO TID PRN PRN Reason: Anxiety Last Admin: 03/05/17 20:34 Dose: 1 mg Methylprednisolone Sodium Succinate (Solu-Medrol) 125 mg IVPUSH Q6HR [facility] Last Admin: 03/06/17 06:03 Dose: 125 mg Montelukast Sodium (Singulair) 10 mg PO DAILY [facility] Last Admin: 03/06/17 08:08 Dose: 10 mg Morphine Sulfate (Morphine) 4 mg IVPUSH Q2H PRN PRN Reason: Pain Last Admin: 03/05/17 10:06 Dose: 4 mg Breo Ellipta 100-25 (Mcg) 1 each INH DAILY [facility] Last Admin: 03/05/17 08:59 Dose: 1 each Incruse 62.5 Mcg 1 each INH DAILY [facility] Last Admin: 03/05/17 08:59 Dose: 1 each Sodium Chloride (Saline Flush) 10 ml FLUSH ASDIRECTED PRN PRN Reason: Keep Vein Open Sodium Chloride (Saline Flush) 2.5 ml FLUSH ASDIRECTED PRN PRN Reason: Keep Vein Open Tamsulosin HCl (Flomax) 0.4 mg PO DAILY [facility] Last Admin: 03/06/17 08:08 Dose: 0.4 mg Discontinued Medications Acetaminophen (Tylenol) 1,000 mg PO NOW ONE Stop: 03/04/17 22:45 Last Admin: 03/04/17 22:53 Dose: 1,000 mg Albuterol/Ipratropium (Duoneb 3.0-0.5 Mg/3 Ml) 3 ml NEB ONETIME ONE Stop: 03/04/17 22:14 Last Admin: 03/04/17 22:25 Dose: 3 ml Furosemide (Lasix) 40 mg PO BIDDIURETIC [facility] Last Admin: 03/05/17 08:33 Dose: 40 mg Levofloxacin/Dextrose 500 mg/ (Premix) 100 mls @ 100 mls/hr IV Q24H [facility] Last Admin: 03/05/17 03:06 Dose: 100 mls/hr Levofloxacin/Dextrose 750 mg/ (Premix) 150 mls @ 100 mls/hr IV Q48H [facility] Last Admin: 03/06/17 04:14 Dose: 100 mls/hr Magnesium Sulfate 2 gm/ Premix 50 mls @ 50 mls/hr IV ONETIME ONE Stop: 03/06/17 08:48 Last Admin: 03/06/17 08:07 Dose: 50 mls/hr Lisinopril (Prinivil) 20 mg PO DAILY [facility] Last Admin: 03/05/17 08:34 Dose: 20 mg Methylprednisolone Sodium Succinate (Solu-Medrol) 125 mg IVPUSH ONETIME ONE Stop: 03/04/17 22:14 Last Admin: 03/04/17 22:26 Dose: 125 mg Polyethylene Glycol (Miralax) 17 gm PO BEDTIME PRN PRN Reason: Constipation Last Admin: 03/05/17 13:50 Dose: 17 gm Potassium Chloride (Klor-Con 10) 10 meq PO BID [facility] - Exam General: Alert, Oriented, Cooperative, No Acute Distress Lungs: Rhonchi, Wheezing (throughout), Other (dry hacking cough noted, scant sputum now.) Cardiovascular: Regular Rate, Regular Rhythm, No Murmurs GI/Abdominal Exam: Normal Bowel Sounds, Soft, Non-Tender, No Organomegaly, No Distention, No Abnormal Bruit, No Mass, Pelvis Stable Extremities: Normal Inspection, Normal Range of Motion, Non-Tender, No Pedal Edema, Normal Capillary Refill Psy/Mental Status: Alert, Normal Affect, Normal Mood - Problem List & Annotations (1) CAP (community acquired pneumonia) SNOMED Code(s): 399392998 Code(s): J18.9 - PNEUMONIA, UNSPECIFIED ORGANISM Status: Acute Current Visit: Yes Qualifiers: Laterality: unspecified laterality Qualified Code(s): J18.9 - Pneumonia, unspecified organism (2) COPD exacerbation SNOMED Code(s): 466456989918017 Code(s): J44.1 - CHRONIC OBSTRUCTIVE PULMONARY DISEASE W (ACUTE) EXACERBATION Status: Acute Current Visit: Yes (3) Morbid obesity SNOMED Code(s): 103925719 Code(s): E66.01 - MORBID (SEVERE) OBESITY DUE TO EXCESS CALORIES Status: Chronic Current Visit: Yes (4) Diastolic CHF SNOMED Code(s): 178642981 Code(s): I50.30 - UNSPECIFIED DIASTOLIC (CONGESTIVE) HEART FAILURE Status: Chronic Current Visit: No Qualifiers: Congestive heart failure chronicity: chronic Qualified Code(s): I50.32 - Chronic diastolic (congestive) heart failure (5) Hypertension SNOMED Code(s): 78620649 Code(s): I10 - ESSENTIAL (PRIMARY) HYPERTENSION Status: Chronic Current Visit: No Qualifiers: Hypertension type: essential hypertension Qualified Code(s): I10 - Essential (primary) hypertension (6) Oxygen dependent SNOMED Code(s): 048399673802 Code(s): Z99.81 - DEPENDENCE ON SUPPLEMENTAL OXYGEN Status: Chronic Current Visit: Yes - Problem List Review Problem List Initiated/Reviewed/Updated: Yes - My Orders Last 24 Hours: My Active Orders 03/05/17 10:16 CULTURE SPUTUM + SMEAR [RM] Routine 03/05/17 13:13 Polyethylene Glycol 3350 [MiraLAX] 17 gm PO BEDTIME PRN 03/05/17 13:14 Daily Weight [Height and Weight] [RC] DAILY Resuscitation Status Routine 03/05/17 21:00 Heparin Sodium 5,000 units SUBCUT Q12HR 03/06/17 09:00 Furosemide [Lasix] 40 mg PO DAILY 03/06/17 09:10 Benzonatate [Tessalon Perles] 100 mg PO TID PRN 03/06/17 09:11 Polyethylene Glycol 3350 [MiraLAX] 17 gm PO DAILY PRN 03/06/17 09:15 Docusate Sodium [Colace] 100 mg PO BID 03/07/17 04:00 Levofloxacin/Dextrose 5%-Water [Levaquin in D5W 750 MG/150 ML] 750 mg Premix Bag 1 bag IV Q24H 03/07/17 05:00 MAGNESIUM [CHEM] DAILY 03/08/17 05:00 MAGNESIUM [CHEM] DAILY - Plan Plan:: This 61 year old male admitted with clinical CAP and COPD exacerbation. 1. CAP: Slow improvement. Continue Levaquin 750 mg Q48h. Sputum culture pending. Leukocytosis up slightly, likely due to Solumderol. 2. COPD exacerbation: Likely brought on by pneumonia. Continue with Solumedrol but decrese dose t o60 mg Q12 due to anxiety and jitteriness. Will monitor for today. 3. Hx diastolic CHF: Stable, no signs of acute exacerbation. Continue Lasix 40 mg. Cr improved, BUN slightly elevated 42. Monitor. 4. HTN: Hold Lisinopril due to renal function for now. VTE prophylaxis: Heparin Q12h Dispo: 2-3 days pending improvement.
[2017-03-06] MEDS: INCRUSE 62.5 MCG INH SCH (09:41)
[2017-03-06] MEDS: BREO ELLIPTA 100-25 MCG INH SCH (09:41)
[2017-03-06] MEDS: Benzonatate 100 MG Cap PO PRN ×2 (10:57→19:02)
[2017-03-06] MEDS: Docusate Sodium 100 MG Cap PO SCH ×2 (11:05→20:48)
[2017-03-06] MEDS: LORazepam 1 MG Tab PO PRN (11:47)
[2017-03-06] MEDS ORDERED: Temazepam 15 MG Cap PO PRN (15:39)
[2017-03-06] MEDS ORDERED: methylPREDNISolone Sodium Succinate 125 MG/2 ML SDV IVPUSH SCH (23:00)
[2017-03-07] MEDS: Albuterol/Ipratropium 3.0-0.5 MG/3 ML Neb Soln NEB SCH ×6 (02:13→21:43)
[2017-03-07] MEDS: Levofloxacin/Dextrose 5%-Water 750 MG in Premix Bag 1 BAG IV SCH (04:16)
[2017-03-07] MEDS: Benzonatate 100 MG Cap PO PRN ×2 (05:33→16:24)
[2017-03-07] MEDS: Acetaminophen 500 MG Tab PO PRN (05:33)
[2017-03-07 06:03] LABS: CHLORIDE,CL 103 mmol/L (98-110); SODIUM,NA 139 mmol/L (136-146)
--- NOTE | 2017-03-07 09:12 | PCM.PN ---
- General Info Date of Service: 03/07/17 Admission Dx/Problem (Free Text): Admission Diagnosis/Problem Admission Diagnosis/Problem COPD, Moderate chronic obstructive pulmonary disease/ CAP Subjective Update: Doing much better today. Less jittery and anxious and no further visual hallucinations.SOB has improved. Cough continues but is also improving. No chest pain or palpitations. Functional Status: Reports: Pain Controlled, Tolerating Diet, Ambulating, Urinating - Review of Systems General: Reports: No Symptoms. Denies: Fever HEENT: Denies: Headaches, Sore Throat, Rhinitis Pulmonary: Reports: Shortness of Breath (improved), Cough, Sputum, Wheezing. Denies: Hemoptysis Cardiovascular: Denies: Chest Pain, Palpitations, Edema Gastrointestinal: Reports: No Symptoms. Denies: Abdominal Pain, Nausea, Vomiting Genitourinary: Reports: No Symptoms. Denies: Dysuria, Frequency, Burning Neurological: Denies: Confusion Psychiatric: Reports: No Symptoms - Patient Data Vitals - Most Recent: Last Vital Signs Temp 98.1 F 03/07/17 08:00 Pulse 104 H 03/07/17 08:00 Resp 20 03/07/17 08:00 BP 149/85 H 03/07/17 08:00 Pulse Ox 93 L 03/07/17 08:00 Weight - Most Recent: 130.226 kg I&O - Last 24 Hours: Intake & Output 03/06/17 03/07/17 03/07/17 22:59 06:59 14:59 Intake Total 1840 800 Output Total 1165 1390 Balance 675 -590 Lab Results Last 24 Hours: Laboratory Results - last 24 hr 03/07/17 03/07/17 Range/Units 05:02 05:02 WBC 13.08 H (4.0-11.0) K/uL RBC 3.71 L (4.50-5.90) M/uL Hgb 11.8 L (13.0-17.0) g/dL Hct 36.0 L (38.0-50.0) % MCV 97.0 (80.0-98.0) fL MCH 31.8 (27.0-32.0) pg MCHC 32.8 (31.0-37.0) g/dL RDW Std Deviation 49.8 (28.0-62.0) fl RDW Coeff of Dean 14 (11.0-15.0) % Plt Count 248 (150-400) K/uL MPV 10.80 (7.40-12.00) fL Add Manual Diff YES Neutrophils % (Manual) 81 H (48.0-80.0) % Band Neutrophils % 5 % Lymphocytes % (Manual) 8 L (16.0-40.0) % Monocytes % (Manual) 6 (0.0-15.0) % Nucleated RBC % 0.0 /100WBC Absolute Seg Neuts 10.6 H (1.4-5.7) Band Neutrophils # 0.7 Lymphocytes # (Manual) 1.0 (0.6-2.4) Monocytes # (Manual) 0.8 (0.0-0.8) Nucleated RBCs # 0 K/uL Sodium 139 (136-146) mmol/L Potassium 4.4 (3.5-5.1) mmol/L Chloride 103 (98-110) mmol/L Carbon Dioxide 26 (21-31) mmol/L BUN 36 H (6.0-23.0) mg/dL Creatinine 1.1 (0.6-1.5) mg/dL Est Cr Clr Drug Dosing 66.75 mL/min Estimated GFR (MDRD) > 60.0 ml/min Glucose 163 H (60-110) mg/dL Calcium 8.0 L (8.8-10.8) mg/dL Magnesium 2.0 (1.5-2.3) mEq/L [place] Results Last 24 Hours: Microbiology 03/05/17 10:16 Gram Stain - Final Sputum - Expectorated Med Orders - Current: Current Medications Acetaminophen (Tylenol Extra Strength) 500 mg PO Q4H PRN PRN Reason: Pain (mild 1-3) Last Admin: 03/07/17 05:33 Dose: 500 mg Albuterol (Proventil Hfa) 0 gm INH QID PRN PRN Reason: Dyspnea Albuterol/Ipratropium (Duoneb 3.0-0.5 Mg/3 Ml) 3 ml NEB Q4HRRT [facility] Last Admin: 03/07/17 06:18 Dose: 3 ml Allopurinol (Zyloprim) 300 mg PO DAILY [facility] Last Admin: 03/06/17 08:08 Dose: 300 mg Benzonatate (Tessalon Perles) 100 mg PO TID PRN PRN Reason: Cough Last Admin: 03/07/17 05:33 Dose: 100 mg Docusate Sodium (Colace) 100 mg PO BID [facility] Last Admin: 03/06/17 20:48 Dose: 100 mg Fluoxetine HCl (Prozac) 20 mg PO DAILY [facility] Last Admin: 03/06/17 08:08 Dose: 20 mg Furosemide (Lasix) 40 mg PO DAILY [facility] Last Admin: 03/06/17 08:08 Dose: 40 mg Heparin Sodium (Porcine) (Heparin Sodium) 5,000 units SUBCUT Q12HR [facility] Last Admin: 03/06/17 20:48 Dose: 5,000 units Sodium Chloride (Normal Saline) 500 mls @ 999 mls/hr IV STAT [facility] Last Admin: 03/05/17 00:19 Dose: 999 mls/hr Levofloxacin/Dextrose 750 mg/ (Premix) 150 mls @ 100 mls/hr IV Q24H [facility] Last Admin: 03/07/17 04:16 Dose: 100 mls/hr Lorazepam (Ativan) 1 mg PO TID PRN PRN Reason: Anxiety Last Admin: 03/06/17 11:47 Dose: 1 mg Montelukast Sodium (Singulair) 10 mg PO DAILY [facility] Last Admin: 03/06/17 08:08 Dose: 10 mg Morphine Sulfate (Morphine) 4 mg IVPUSH Q2H PRN PRN Reason: Pain Last Admin: 03/05/17 10:06 Dose: 4 mg Breo Ellipta 100-25 (Mcg) 1 each INH DAILY [facility] Last Admin: 03/06/17 09:41 Dose: 1 each Incruse 62.5 Mcg 1 each INH DAILY [facility] Last Admin: 03/06/17 09:41 Dose: 1 each Polyethylene Glycol (Miralax) 17 gm PO DAILY PRN PRN Reason: Constipation Last Admin: 03/06/17 10:57 Dose: 17 gm Sodium Chloride (Saline Flush) 10 ml FLUSH ASDIRECTED PRN PRN Reason: Keep Vein Open Sodium Chloride (Saline Flush) 2.5 ml FLUSH ASDIRECTED PRN PRN Reason: Keep Vein Open Tamsulosin HCl (Flomax) 0.4 mg PO DAILY [facility] Last Admin: 03/06/17 08:08 Dose: 0.4 mg Temazepam (Restoril) 15 mg PO BEDTIME PRN PRN Reason: Insomnia Last Admin: 03/06/17 22:12 Dose: 15 mg Discontinued Medications Acetaminophen (Tylenol) 1,000 mg PO NOW ONE Stop: 03/04/17 22:45 Last Admin: 03/04/17 22:53 Dose: 1,000 mg Albuterol/Ipratropium (Duoneb 3.0-0.5 Mg/3 Ml) 3 ml NEB ONETIME ONE Stop: 03/04/17 22:14 Last Admin: 03/04/17 22:25 Dose: 3 ml Furosemide (Lasix) 40 mg PO BIDDIURETIC [facility] Last Admin: 03/05/17 08:33 Dose: 40 mg Levofloxacin/Dextrose 500 mg/ (Premix) 100 mls @ 100 mls/hr IV Q24H [facility] Last Admin: 03/05/17 03:06 Dose: 100 mls/hr Levofloxacin/Dextrose 750 mg/ (Premix) 150 mls @ 100 mls/hr IV Q48H [facility] Last Admin: 03/06/17 04:14 Dose: 100 mls/hr Magnesium Sulfate 2 gm/ Premix 50 mls @ 50 mls/hr IV ONETIME ONE Stop: 03/06/17 08:48 Last Admin: 03/06/17 08:07 Dose: 50 mls/hr Lisinopril (Prinivil) 20 mg PO DAILY [facility] Last Admin: 03/05/17 08:34 Dose: 20 mg Methylprednisolone Sodium Succinate (Solu-Medrol) 125 mg IVPUSH ONETIME ONE Stop: 03/04/17 22:14 Last Admin: 03/04/17 22:26 Dose: 125 mg Methylprednisolone Sodium Succinate (Solu-Medrol) 125 mg IVPUSH Q6HR [facility] Last Admin: 03/06/17 11:47 Dose: 125 mg Methylprednisolone Sodium Succinate (Solu-Medrol) 60 mg IVPUSH Q12H [facility] Polyethylene Glycol (Miralax) 17 gm PO BEDTIME PRN PRN Reason: Constipation Last Admin: 03/05/17 13:50 Dose: 17 gm Potassium Chloride (Klor-Con 10) 10 meq PO BID [facility] - Exam Quality Assessment: Supplemental Oxygen General: Alert, Oriented, Cooperative HEENT: Pupils Equal, Pupils Reactive, EOMI, Mucous Membr. Moist/[place] Lungs: Normal Respiratory Effort, Wheezing, Other (cough noted) Cardiovascular: Regular Rate, Regular Rhythm GI/Abdominal Exam: Normal Bowel Sounds, Soft, Non-Tender, No Organomegaly, No Distention, No Abnormal Bruit, No Mass, Pelvis Stable Extremities: Normal Inspection, Normal Range of Motion, Non-Tender, No Pedal Edema, Normal Capillary Refill Psy/Mental Status: Alert, Normal Affect, Normal Mood - Problem List & Annotations (1) CAP (community acquired pneumonia) SNOMED Code(s): 357206709 Code(s): J18.9 - PNEUMONIA, UNSPECIFIED ORGANISM Status: Acute Current Visit: Yes Qualifiers: Laterality: unspecified laterality Qualified Code(s): J18.9 - Pneumonia, unspecified organism (2) COPD exacerbation SNOMED Code(s): 511006759269514 Code(s): J44.1 - CHRONIC OBSTRUCTIVE PULMONARY DISEASE W (ACUTE) EXACERBATION Status: Acute Current Visit: Yes (3) Morbid obesity SNOMED Code(s): 483092011 Code(s): E66.01 - MORBID (SEVERE) OBESITY DUE TO EXCESS CALORIES Status: Chronic Current Visit: Yes (4) Diastolic CHF SNOMED Code(s): 242772111 Code(s): I50.30 - UNSPECIFIED DIASTOLIC (CONGESTIVE) HEART FAILURE Status: Chronic Current Visit: No Qualifiers: Congestive heart failure chronicity: chronic Qualified Code(s): I50.32 - Chronic diastolic (congestive) heart failure (5) Hypertension SNOMED Code(s): 59689596 Code(s): I10 - ESSENTIAL (PRIMARY) HYPERTENSION Status: Chronic Current Visit: No Qualifiers: Hypertension type: essential hypertension Qualified Code(s): I10 - Essential (primary) hypertension (6) Oxygen dependent SNOMED Code(s): 467116592778 Code(s): Z99.81 - DEPENDENCE ON SUPPLEMENTAL OXYGEN Status: Chronic Current Visit: Yes - Problem List Review Problem List Initiated/Reviewed/Updated: Yes - My Orders Last 24 Hours: My Active Orders 03/06/17 09:00 Furosemide [Lasix] 40 mg PO DAILY 03/06/17 09:10 Benzonatate [Tessalon Perles] 100 mg PO TID PRN 03/06/17 09:11 Polyethylene Glycol 3350 [MiraLAX] 17 gm PO DAILY PRN 03/06/17 09:15 Docusate Sodium [Colace] 100 mg PO BID 03/06/17 15:39 Temazepam [Restoril] 15 mg PO BEDTIME PRN 03/07/17 04:00 Levofloxacin/Dextrose 5%-Water [Levaquin in D5W 750 MG/150 ML] 750 mg Premix Bag 1 bag IV Q24H 03/08/17 05:00 MAGNESIUM [CHEM] DAILY - Plan Plan:: This 61 year old male admitted with clinical CAP and COPD exacerbation. 1. CAP: Continues to show improvement today. Continue Levaquin 750 mg Q48h. Sputum culture pending. Leukocytosis up slightly, likely due to Solumderol. 2. COPD exacerbation: Solumderol discontinued yesterday. Today feeling much better, will start Prednisone 40 mg today and likely send home on taper. 3. Hx diastolic CHF: Stable, no signs of acute exacerbation. Continue Lasix 40 mg. Cr improved, BUN slightly elevated 42. Monitor. 4. HTN: Continue Lisinopril. VTE prophylaxis: Heparin Q12h Dispo: Home in am.
[2017-03-07] MEDS: Montelukast 10 MG Tab PO SCH (09:37)
[2017-03-07] MEDS: Tamsulosin 0.4 MG Cap.ER PO SCH (09:37)
[2017-03-07] MEDS: FLUoxetine 20 MG Cap PO SCH (09:37)
[2017-03-07] MEDS: Allopurinol 300 MG Tab PO SCH (09:37)
[2017-03-07] MEDS: Heparin Sodium 5,000 Units/ML Vial SUBCUT SCH ×2 (09:37→20:38)
[2017-03-07] MEDS: Furosemide 40 MG Tab PO SCH (09:38)
[2017-03-07] MEDS: Docusate Sodium 100 MG Cap PO SCH ×2 (09:38→20:42)
[2017-03-07] MEDS: BREO ELLIPTA 100-25 MCG INH SCH (09:42)
[2017-03-07] MEDS: INCRUSE 62.5 MCG INH SCH (09:42)
[2017-03-07] MEDS: predniSONE 20 MG Tab PO SCH (09:44)
[2017-03-07] MEDS: Ondansetron 4 MG/2 ML SDV IVPUSH PRN (11:57)
[2017-03-07] MEDS: Lisinopril 10 MG Tab PO SCH (11:57)
[2017-03-07] MEDS: LORazepam 1 MG Tab PO PRN (22:10)
[2017-03-08] MEDS: Albuterol/Ipratropium 3.0-0.5 MG/3 ML Neb Soln NEB SCH ×3 (03:21→09:45)
[2017-03-08] MEDS: Levofloxacin/Dextrose 5%-Water 750 MG in Premix Bag 1 BAG IV SCH (04:12)
[2017-03-08 06:44] LABS: CHLORIDE,CL 106 mmol/L (98-110); SODIUM,NA 140 mmol/L (136-146)
[2017-03-08] MEDS: Docusate Sodium 100 MG Cap PO SCH (08:36)
[2017-03-08] MEDS: Montelukast 10 MG Tab PO SCH (08:36)
[2017-03-08] MEDS: Tamsulosin 0.4 MG Cap.ER PO SCH (08:36)
[2017-03-08] MEDS: Allopurinol 300 MG Tab PO SCH (08:37)
[2017-03-08] MEDS: predniSONE 20 MG Tab PO SCH (08:37)
[2017-03-08] MEDS: FLUoxetine 20 MG Cap PO SCH (08:37)
[2017-03-08] MEDS: Heparin Sodium 5,000 Units/ML Vial SUBCUT SCH (08:38)
[2017-03-08] MEDS: Lisinopril 10 MG Tab PO SCH (08:38)
[2017-03-08] MEDS: Furosemide 40 MG Tab PO SCH (08:38)
[2017-03-08 08:43] VITALS: BP 130/76
--- NOTE | 2017-03-08 08:56 | PCM.DCSUM1 ---
Discharge Summary - Hospital Course Brief History: This 61 year old male with pmh of diastolic CHF, COPD, oxygen dependent at home with activity, HTN, and morbid obesity presented to the ED with complaints of worsening dyspnea, chest tightness and productive cough. He reports some feverish feelings at home with sweating and feeling hot, but did not check his temperature. He reports no orthopnea or peripheral edema. He denies chest pain, some tightness with dyspnea. No radiating of this pain. He reports no abdominal pain, GERD or other pain. No palpitations. He denies diarrhea, but does confirm constipation, Miralax usually helps. He reports continuing to follow medication regimen, hasn't smoked in 6 years and denies alochol use. In the ED leukocytosis noted, 12,090. Na 141, K+4.1 BUN 27, Cr 1.4 CXR was negative for infiltrates or pleural effusions. He was noted to be tachycardic, 130s in the ED. He did increase his oxygen to 3 L NC, normally on 2 sating mid 90s. He was given Levaquin and Solumderol. He was admitted for COPD exacerbation. PCP, Dr Isabel. - Discharge Data Discharge Date: 03/08/17 Discharge Disposition: Home, Self-Care 01 Condition: Good - Discharge Diagnosis/Problem(s) (1) CAP (community acquired pneumonia) SNOMED Code(s): 607760715 ICD Code: J18.9 - PNEUMONIA, UNSPECIFIED ORGANISM Status: Acute Current Visit: Yes Qualifiers: Laterality: unspecified laterality Qualified Code(s): J18.9 - Pneumonia, unspecified organism (2) COPD exacerbation SNOMED Code(s): 169888174835849 ICD Code: J44.1 - CHRONIC OBSTRUCTIVE PULMONARY DISEASE W (ACUTE) EXACERBATION Status: Acute Current Visit: Yes (3) Morbid obesity SNOMED Code(s): 982353591 ICD Code: E66.01 - MORBID (SEVERE) OBESITY DUE TO EXCESS CALORIES Status: Chronic Current Visit: Yes (4) Diastolic CHF SNOMED Code(s): 944581421 ICD Code: I50.30 - UNSPECIFIED DIASTOLIC (CONGESTIVE) HEART FAILURE Status : Chronic Current Visit: No Qualifiers: Congestive heart failure chronicity: chronic Qualified Code(s): I50.32 - Chronic diastolic (congestive) heart failure (5) Hypertension SNOMED Code(s): 71649340 ICD Code: I10 - ESSENTIAL (PRIMARY) HYPERTENSION Status: Chronic Current Visit: No Qualifiers: Hypertension type: essential hypertension Qualified Code(s): I10 - Essential (primary) hypertension (6) Oxygen dependent SNOMED Code(s): 534525579060 ICD Code: Z99.81 - DEPENDENCE ON SUPPLEMENTAL OXYGEN Status: Chronic Current Visit: Yes - Patient Instructions Diet: Heart Healthy Diet Activity: As Tolerated, No Strenuous Activities Showering/Bathing: May Shower Notify Provider of: Fever, Increased Pain, Swelling and Redness, Drainage, Nausea and/or Vomiting - Discharge Plan Prescriptions/Med Rec: Benzonatate [Tessalon Perles] 100 mg PO TID PRN #20 cap PRN Reason: Cough Levofloxacin [Levaquin] 750 mg PO DAILY #3 tablet Ondansetron [Zofran ODT] 4 mg PO Q8H PRN #5 tab.dis PRN Reason: Nausea predniSONE [Prednisone] 10 - 40 mg PO DAILY #30 tablet Home Medications: Home Meds Albuterol Sulfate 1 inh NEB QID PRN 04/18/15 [History] Allopurinol [Zyloprim] 300 mg PO DAILY 04/18/15 [History] FLUoxetine [PROzac] 20 mg PO DAILY 04/18/15 [History] LORazepam 1 mg PO TID PRN 04/18/15 [History] Furosemide 40 mg PO DAILY 02/12/17 [History] Lisinopril 20 mg PO DAILY 02/12/17 [History] Fluticasone/Vilanterol [Breo Ellipta 200-25 Mcg INH] 1 puff INH DAILY 03/04/17 [ History] Montelukast [Singulair] 10 mg PO DAILY 03/04/17 [History] Potassium Chloride 10 meq PO BID 03/04/17 [History] Tamsulosin [Flomax] 0.4 mg PO DAILY 03/04/17 [History] Umeclidinium [place] [Incruse Ellipta*] 62.5 mg INH DAILY 03/04/17 [History] Polyethylene Glycol 3350 [MiraLAX] 17 gm PO BEDTIME 03/05/17 [History] diphenhydrAMINE [Benadryl] 50 mg PO BEDTIME 03/05/17 [History] Benzonatate [Tessalon Perles] 100 mg PO TID PRN #20 cap 03/08/17 [Rx] Levofloxacin [Levaquin] 750 mg PO DAILY #3 tablet 03/08/17 [Rx] Ondansetron [Zofran ODT] 4 mg PO Q8H PRN #5 tab.dis 03/08/17 [Rx] predniSONE [Prednisone] 10 - 40 mg PO DAILY #30 tablet 03/08/17 [Rx] Patient Handouts: Chronic Obstructive Pulmonary Disease Exacerbation, Easy-to- Read, Levofloxacin tablets, Prednisone tablets, Benzonatate capsules, Community- Acquired Pneumonia, Adult, [id number] Referrals: [facility] [Outside] Bryn Colmenares MD [Physician] - 03/18/17 10:00 am Scott Isabel MD [Physician] - 03/18/17 2:30 pm - Discharge Summary/Plan Comment DC Time >30 min.: No Discharge Summary/Plan Comment: Discharge Diagnoses: CAP COPD exacerbation Morbid obesity Diastolic CHF HTN Oxygen dependent Anxiety Lei was admitted treated for clinical pneumonia with Levaquin. CXR revealed no infiltrate, but patient was coughing green phlegm. Sputum culture returned with Normal respiratory manuel. He also was treated for COPD exacerbation with high dose SOlumedrol. Day 2 of admission, visual hallunications and anxiety was noted. SOlumedrol stopped and Prednisone was restarted in the morning. Hallunications and anxiety diminished. Today he is feeling much better, leukocytosis improved. VS stable, he is afebrile and asking to be discharged home. He will be discharged home with Levaquin 750 mg daily for 3 more days, 7 day course. and a Prednisone Taper for 2 weeks. He is to return to his PCP, Dr. Colmenares in 1 week for follow up. He is to return to ED or clinic if concerns should arise. He is no on his baseline 2 L NC with activity. - General Info Date of Service: 03/08/17 Admission Dx/Problem (Free Text: Admission Diagnosis/Problem Admission Diagnosis/Problem COPD, Moderate chronic obstructive pulmonary disease/ CAP Subjective Update: Sitting up in bed, continues to have dry hacking cough. Less and less productive since admission. No chest pain or SOB. Functional Status: Reports: Pain Controlled, Tolerating Diet, Ambulating, Urinating - Review of Systems General: Reports: No Symptoms. Denies: Fever HEENT: Reports: No Symptoms. Denies: Headaches, Sore Throat, Rhinitis, Visual Changes Pulmonary: Reports: Cough, Sputum. Denies: Shortness of Breath, Hemoptysis, Wheezing Cardiovascular: Reports: No Symptoms. Denies: Chest Pain, Palpitations Gastrointestinal: Reports: Nausea (intermittently, "feels like my nerves"). Denies: Abdominal Pain, Vomiting Genitourinary: Reports: No Symptoms. Denies: Dysuria, Frequency, Burning Skin: Reports: No Symptoms Neurological: Reports: No Symptoms Psychiatric: Reports: No Symptoms - Patient Data Vitals - Most Recent: Last Vital Signs Temp 98.3 F 03/08/17 08:00 Pulse 102 H 03/08/17 08:00 Resp 20 03/08/17 08:00 BP 130/76 03/08/17 08:38 Pulse Ox 93 L 03/08/17 08:00 Weight - Most Recent: 129.6 kg I&O - Last 24 hours: Intake & Output 03/07/17 03/08/17 03/08/17 22:59 06:59 14:59 Intake Total 1400 1150 Output Total 1050 950 Balance 350 200 Lab Results - Last 24 hrs: Laboratory Results - last 24 hr 03/08/17 03/08/17 Range/Units 06:16 06:16 WBC 9.67 (4.0-11.0) K/uL RBC 3.73 L (4.50-5.90) M/uL Hgb 12.1 L (13.0-17.0) g/dL Hct 36.5 L (38.0-50.0) % MCV 97.9 (80.0-98.0) fL MCH 32.4 H (27.0-32.0) pg MCHC 33.2 (31.0-37.0) g/dL RDW Std Deviation 50.4 (28.0-62.0) fl RDW Coeff of Dean 14 (11.0-15.0) % Plt Count 231 (150-400) K/uL MPV 10.20 (7.40-12.00) fL Add Manual Diff YES Neutrophils % (Manual) 60 (48.0-80.0) % Band Neutrophils % 8 % Lymphocytes % (Manual) 28 (16.0-40.0) % Monocytes % (Manual) 4 (0.0-15.0) % Nucleated RBC % 0.0 /100WBC Absolute Seg Neuts 5.8 H (1.4-5.7) Band Neutrophils # 0.8 Lymphocytes # (Manual) 2.7 H (0.6-2.4) Monocytes # (Manual) 0.4 (0.0-0.8) Nucleated RBCs # 0 K/uL Sodium 140 (136-146) mmol/L Potassium 4.6 (3.5-5.1) mmol/L Chloride 106 (98-110) mmol/L Carbon Dioxide 27 (21-31) mmol/L BUN 25 H (6.0-23.0) mg/dL Creatinine 1.0 (0.6-1.5) mg/dL Est Cr Clr Drug Dosing 73.42 mL/min Estimated GFR (MDRD) > 60.0 ml/min Glucose 92 (60-110) mg/dL Calcium 8.3 L (8.8-10.8) mg/dL Magnesium 1.8 (1.5-2.3) mEq/L Med Orders - Current: Current Medications Acetaminophen (Tylenol Extra Strength) 500 mg PO Q4H PRN PRN Reason: Pain (mild 1-3) Last Admin: 03/07/17 05:33 Dose: 500 mg Albuterol (Proventil Hfa) 0 gm INH QID PRN PRN Reason: Dyspnea Albuterol/Ipratropium (Duoneb 3.0-0.5 Mg/3 Ml) 3 ml NEB Q4HRRT [facility] Last Admin: 03/08/17 06:04 Dose: 3 ml Allopurinol (Zyloprim) 300 mg PO DAILY [facility] Last Admin: 03/08/17 08:37 Dose: 300 mg Benzonatate (Tessalon Perles) 100 mg PO TID PRN PRN Reason: Cough Last Admin: 03/07/17 16:24 Dose: 100 mg Docusate Sodium (Colace) 100 mg PO BID [facility] Last Admin: 03/08/17 08:36 Dose: 100 mg Fluoxetine HCl (Prozac) 20 mg PO DAILY [facility] Last Admin: 03/08/17 08:37 Dose: 20 mg Furosemide (Lasix) 40 mg PO DAILY [facility] Last Admin: 03/08/17 08:38 Dose: 40 mg Heparin Sodium (Porcine) (Heparin Sodium) 5,000 units SUBCUT Q12HR [facility] Last Admin: 03/08/17 08:38 Dose: 5,000 units Sodium Chloride (Normal Saline) 500 mls @ 999 mls/hr IV STAT [facility] Last Admin: 03/05/17 00:19 Dose: 999 mls/hr Levofloxacin/Dextrose 750 mg/ (Premix) 150 mls @ 100 mls/hr IV Q24H [facility] Last Infusion: 03/08/17 05:45 Dose: Infused Lisinopril (Prinivil) 20 mg PO DAILY [facility] Last Admin: 03/08/17 08:38 Dose: 20 mg Lorazepam (Ativan) 1 mg PO TID PRN PRN Reason: Anxiety Last Admin: 03/07/17 22:10 Dose: 1 mg Montelukast Sodium (Singulair) 10 mg PO DAILY [facility] Last Admin: 03/08/17 08:36 Dose: 10 mg Morphine Sulfate (Morphine) 4 mg IVPUSH Q2H PRN PRN Reason: Pain Last Admin: 03/05/17 10:06 Dose: 4 mg Ondansetron HCl (Zofran) 4 mg IVPUSH Q4H PRN PRN Reason: Nausea Last Admin: 03/07/17 11:57 Dose: 4 mg Breo Ellipta 100-25 (Mcg) 1 each INH DAILY [facility] Last Admin: 03/07/17 09:42 Dose: 1 each Incruse 62.5 Mcg 1 each INH DAILY [facility] Last Admin: 03/07/17 09:42 Dose: 1 each Polyethylene Glycol (Miralax) 17 gm PO DAILY PRN PRN Reason: Constipation Last Admin: 03/06/17 10:57 Dose: 17 gm Prednisone (Prednisone) 40 mg PO WITHBREAKFAST [facility] Last Admin: 03/08/17 08:37 Dose: 40 mg Sodium Chloride (Saline Flush) 10 ml FLUSH ASDIRECTED PRN PRN Reason: Keep Vein Open Sodium Chloride (Saline Flush) 2.5 ml FLUSH ASDIRECTED PRN PRN Reason: Keep Vein Open Tamsulosin HCl (Flomax) 0.4 mg PO DAILY [facility] Last Admin: 03/08/17 08:36 Dose: 0.4 mg Temazepam (Restoril) 15 mg PO BEDTIME PRN PRN Reason: Insomnia Last Admin: 03/06/17 22:12 Dose: 15 mg Discontinued Medications Acetaminophen (Tylenol) 1,000 mg PO NOW ONE Stop: 03/04/17 22:45 Last Admin: 03/04/17 22:53 Dose: 1,000 mg Albuterol/Ipratropium (Duoneb 3.0-0.5 Mg/3 Ml) 3 ml NEB ONETIME ONE Stop: 03/04/17 22:14 Last Admin: 03/04/17 22:25 Dose: 3 ml Furosemide (Lasix) 40 mg PO BIDDIURETIC [facility] Last Admin: 03/05/17 08:33 Dose: 40 mg Levofloxacin/Dextrose 500 mg/ (Premix) 100 mls @ 100 mls/hr IV Q24H [facility] Last Admin: 03/05/17 03:06 Dose: 100 mls/hr Levofloxacin/Dextrose 750 mg/ (Premix) 150 mls @ 100 mls/hr IV Q48H [facility] Last Admin: 03/06/17 04:14 Dose: 100 mls/hr Magnesium Sulfate 2 gm/ Premix 50 mls @ 50 mls/hr IV ONETIME ONE Stop: 03/06/17 08:48 Last Admin: 03/06/17 08:07 Dose: 50 mls/hr Lisinopril (Prinivil) 20 mg PO DAILY [facility] Last Admin: 03/05/17 08:34 Dose: 20 mg Methylprednisolone Sodium Succinate (Solu-Medrol) 125 mg IVPUSH ONETIME ONE Stop: 03/04/17 22:14 Last Admin: 03/04/17 22:26 Dose: 125 mg Methylprednisolone Sodium Succinate (Solu-Medrol) 125 mg IVPUSH Q6HR [facility] Last Admin: 03/06/17 11:47 Dose: 125 mg Methylprednisolone Sodium Succinate (Solu-Medrol) 60 mg IVPUSH Q12H [facility] Polyethylene Glycol (Miralax) 17 gm PO BEDTIME PRN PRN Reason: Constipation Last Admin: 03/05/17 13:50 Dose: 17 gm Potassium Chloride (Klor-Con 10) 10 meq PO BID [facility] - Exam Quality Assessment: Reports: Supplemental Oxygen General: Reports: Alert, Oriented, Cooperative, No Acute Distress Neck: Reports: Supple Lungs: Reports: Clear to Auscultation, Normal Respiratory Effort GI/Abdominal Exam: Normal Bowel Sounds, Soft, Non-Tender, No Organomegaly, No Distention, No Abnormal Bruit, No Mass, Pelvis Stable Extremities: Normal Inspection, Normal Range of Motion, Non-Tender, No Pedal Edema, Normal Capillary Refill Neurological: Reports: No New Focal Deficit Psy/Mental Status: Reports: Alert, Normal Affect, Normal Mood *Q Meaningful Use (DIS) - VTE *Q VTE Criteria *Q: - Stroke *Q Stroke Criteria *Q: - AMI *Q AMI Criteria *Q:
[2017-03-08] MEDS: BREO ELLIPTA 100-25 MCG INH SCH (09:48)
[2017-03-08] MEDS: INCRUSE 62.5 MCG INH SCH (09:49)
[2017-03-08] MEDS: Ondansetron 4 MG/2 ML SDV IVPUSH PRN (10:39)
[2017-03-08] MEDS: Acetaminophen 500 MG Tab PO PRN (10:39)
== END 2017-03-08 11:50 | disposition home or self-care (01) | DRG 190 ==
LOC: MW.ED 22:03 → MW.MS 03-05 00:07
PROVIDERS: ADMIT Family Medicine; ATTEND Family Medicine
DX: J44.0 Chronic obstructive pulmonary disease with (acute) lower respiratory infection (principal); J18.9 Pneumonia, unspecified organism; F41.9 Anxiety disorder, unspecified; Z88.2 Allergy status to sulfonamides; Z79.899 Other long term (current) drug therapy; Z68.41 Body mass index [BMI] 40.0-44.9, adult; I50.30 Unspecified diastolic (congestive) heart failure; J44.1 Chronic obstructive pulmonary disease with (acute) exacerbation; E66.01 Morbid (severe) obesity due to excess calories; Z99.81 Dependence on supplemental oxygen; I10 Essential (primary) hypertension
CPT/HCPCS: 36415; 71010; 80053; 81001; 83880; 84484; 85025; 96374; 99285; A9270; J2930; 80048; 83735; 87070; 87205; 93005; 94640; 94664; 99283; J1644; J1956; J2270; J2405; J3475; J7040

== ENCOUNTER 2017-03-22 14:05 | Emergency (ER) | payer MEDICARE, BC ==
[2017-03-22] MEDS ORDERED: Sodium Chloride 0.9% 2.5 ML Syringe FLUSH PRN (14:22)
[2017-03-22] MEDS ORDERED: Sodium Chloride 0.9% 1,000 ML IV ONE ×2 (14:22→15:44)
[2017-03-22] MEDS ORDERED: Famotidine 20 MG/2 ML SDV IVPUSH ONE (14:22)
[2017-03-22] MEDS ORDERED: Nitroglycerin 0.4 MG Tab.SL SL ONE (14:22)
[2017-03-22] MEDS ORDERED: Sodium Chloride 0.9% 10 ML Syringe FLUSH PRN (14:22)
[2017-03-22] MEDS ORDERED: Aspirin 81 MG Tab.Chew PO ONE (14:22)
[2017-03-22] MEDS ORDERED: Nitroglycerin 2% Oint 1 GM UD Packet TOP ONE (14:22)
--- NOTE | 2017-03-22 14:33 | EDM.PDOC ---
ED HPI GENERAL MEDICAL PROBLEM - General Chief Complaint: Genitourinary Problem Stated Complaint: ABDOMINAL PAIN Time Seen by Provider: 03/22/17 14:21 Source of Information: Reports: Patient History Limitations: Reports: No Limitations - History of Present Illness INITIAL COMMENTS - FREE TEXT/NARRATIVE: HISTORY AND PHYSICAL: []61-year-old male presenting with "groin pain" points to his mid pelvic area where he had hernia surgery about 8 years ago History of Present Illness: []During discussion with the nurse patient says he has heaviness to his chest Review of Systems: As per history of present illness and below otherwise all systems reviewed and negative. Past medical history: As per history of present illness and as reviewed below otherwise noncontributory. Surgical history: As per history of present illness and as reviewed below otherwise noncontributory. Social history: No reported history of drug or alcohol abuse. Family history: As per history of present illness and as reviewed below otherwise noncontributory. Physical exam: HEENT: Atraumatic, normocehpalic, pupils reactive, negative for conjunctival pallor or scleral icterus, mucous membranes moist, throat clear, neck supple, nontender, trachea midline. Lungs: Clear to auscultation, breath sounds equal bilaterally, chest non tender. Heart: S1S2, regular, negative for clicks, rubs, or JVD. Abdomen: Soft, nondistended, nontender. Negative for masses or hepatossplenmegaly. Negative for costovertebral tenderness. Pelvis: Stable nontender. Genitourinary: Deferred. Rectal: Deferred Extremities: Atraumatic, negative for cords or calf pain. Neurovascular unremarkable. Neuro: Awake, alert, oriented. Cranial nerves II through XII unremarkable. Cerebellum unremarkable. Motor and sensory unremarkable throughout. Exam nonfocal. Diagnostics: [CBC CMP EKG chest x-ray] Therapeutics: []Saline Impression: Gastroenteritis] Plan: [Discharged home Keep drinking fluids to avoid dehydration Antibiotic therapy cephalexin 500 three times a day 7 days] Definitive disposition and diagnosis as appropriate pending reevaluation and review of above. Onset: Today, Sudden Groin Pain Score (Numeric/FACES): 8 - Related Data Allergies Allergy/AdvReac Type Severity Reaction Status Date / Time Sulfa (Sulfonamide Allergy Hives Verified 03/06/17 04:15 Antibiotics) Home Meds: Home Meds Albuterol Sulfate 1 inh NEB QID PRN 04/18/15 [History] Allopurinol [Zyloprim] 300 mg PO DAILY 04/18/15 [History] FLUoxetine [PROzac] 20 mg PO DAILY 04/18/15 [History] LORazepam 1 mg PO TID PRN 04/18/15 [History] Furosemide 40 mg PO DAILY 02/12/17 [History] Lisinopril 20 mg PO DAILY 02/12/17 [History] Fluticasone/Vilanterol [Breo Ellipta 200-25 Mcg INH] 1 puff INH DAILY 03/04/17 [ History] Montelukast [Singulair] 10 mg PO DAILY 03/04/17 [History] Potassium Chloride 10 meq PO BID 03/04/17 [History] Tamsulosin [Flomax] 0.4 mg PO DAILY 03/04/17 [History] Umeclidinium [place] [Incruse Ellipta*] 62.5 mg INH DAILY 03/04/17 [History] Polyethylene Glycol 3350 [MiraLAX] 17 gm PO BEDTIME 03/05/17 [History] diphenhydrAMINE [Benadryl] 50 mg PO BEDTIME 03/05/17 [History] Benzonatate [Tessalon Perles] 100 mg PO TID PRN #20 cap 03/08/17 [Rx] Ondansetron [Zofran ODT] 4 mg PO Q8H PRN #5 tab.dis 03/08/17 [Rx] Cephalexin [IJD: Cephalexin] 500 mg PO .EVERY 8 HOURS #30 cap 03/22/17 [Rx] Past Medical History HEENT History: Reports: Cataract, Other (See Below) Other HEENT History: 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 Denies: Afib, Blood Clots/VTE/DVT Respiratory History: Reports: COPD, Sleep Apnea Other Respiratory History: cpap and 2 L home o2 Gastrointestinal History: Reports: None Musculoskeletal History: Reports: Gout Neurological History: Reports: None. Denies: CVA, TIA Psychiatric History: Reports: Anxiety Endocrine/Metabolic History: Reports: Obesity/BMI 30+ - Infectious Disease History Infectious Disease History: Reports: Chicken Pox, Measles, Mumps - Past Surgical History Cardiovascular Surgical History: Reports: None Respiratory Surgical History: Reports: None GI Surgical History: Reports: Hernia, Abdominal Musculoskeletal Surgical History: Reports: Knee Replacement Social & Family History - Family History Family Medical History: Noncontributory HEENT: Reports: None Cardiac: Reports: Hypertension Respiratory: Reports: Asthma, COPD GI: Reports: None : Reports: None OBGYN: Reports: None Musculoskeletal: Reports: None Neurological: Reports: None Psychiatric: Reports: None Endocrine/Metabolic: Reports: Diabetes, type II Hematologic: Reports: None Immunologic: Reports: None Dermatologic: Reports: None Oncologic: Reports: Other (See Below) Other Oncologic Family History: sister had cancer but he wouldn't know which type - Tobacco Use Smoking Status *Q: Former Smoker Years of Tobacco use: 48 Used Tobacco, but Quit: Yes Month Tobacco Last Used: 6 years ago Second Hand Smoke Exposure: No - Caffeine Use Caffeine Use: Reports: Coffee Caffeine Use Comment: takes 1 pot - Recreational Drug Use Recreational Drug Use: No ED ROS GENERAL - Review of Systems Review Of Systems: ROS reveals no pertinent complaints other than HPI. ED EXAM, GI/ABD - Physical Exam Exam: See Below (see dictation) EKG INTERPRETATION EKG Date: 03/22/17 Rate (Beats/Min): 126 EKG Interpretation Comments: sinus tach Course - Vital Signs Last Recorded V/S: Last Vital Signs Temp 36.7 C 03/22/17 14:15 Pulse 140 H 03/22/17 14:15 Resp 22 H 03/22/17 14:15 BP 119/72 03/22/17 14:15 Pulse Ox 92 L 03/22/17 14:22 - Orders/Labs/Meds Orders: Active Orders 24 hr Category Date Time Status Cardiac Monitoring [RC] . DIRECTED Care 03/22/17 14:22 Active EKG Documentation Completion [RC] STAT Care 03/22/17 14:22 Active Oxygen Therapy [RC] ASDIRECTED Care 03/22/17 14:22 Active Abdomen Ltd [US] Stat Exams 03/22/17 15:57 Taken Sodium Chloride 0.9% [Saline Flush] Med 03/22/17 14:22 Active 10 ml FLUSH ASDIRECTED PRN Sodium Chloride 0.9% [Saline Flush] Med 03/22/17 14:22 Active 2.5 ml FLUSH ASDIRECTED PRN Saline Lock Insert [OM.PC] Stat Oth 03/22/17 14:22 Ordered Medication Orders Sodium Chloride (Saline Flush) 10 ml FLUSH ASDIRECTED PRN PRN Reason: Keep Vein Open Sodium Chloride (Saline Flush) 2.5 ml FLUSH ASDIRECTED PRN PRN Reason: Keep Vein Open Labs: Laboratory Tests 03/22/17 03/22/17 03/22/17 Range/Units 14:42 14:42 15:30 WBC 15.67 H (4.0-11.0) K/uL RBC 3.75 L (4.50-5.90) M/uL Hgb 12.2 L (13.0-17.0) g/dL Hct 36.9 L (38.0-50.0) % MCV 98.4 H (80.0-98.0) fL MCH 32.5 H (27.0-32.0) pg MCHC 33.1 (31.0-37.0) g/dL RDW Std Deviation 52.1 (28.0-62.0) fl RDW Coeff of Dean 15 (11.0-15.0) % Plt Count 222 (150-400) K/uL MPV 10.10 (7.40-12.00) fL Neut % (Auto) 85.9 H (48.0-80.0) % Lymph % (Auto) 7.4 L (16.0-40.0) % [place] % (Auto) 6.3 (0.0-15.0) % Eos % (Auto) 0.2 (0.0-7.0) % Baso % (Auto) 0.2 (0.0-1.5) % Neut # (Auto) 13.5 H (1.4-5.7) K/uL Lymph # (Auto) 1.2 (0.6-2.4) K/uL [place] # (Auto) 1.0 H (0.0-0.8) K/uL Eos # (Auto) 0.0 (0.0-0.7) K/uL Baso # (Auto) 0.0 (0.0-0.1) K/uL Nucleated RBC % 0.0 /100WBC Nucleated RBCs # 0 K/uL Sodium 140 (136-146) mmol/L Potassium 4.2 (3.5-5.1) mmol/L Chloride 105 (98-110) mmol/L Carbon Dioxide 26 (21-31) mmol/L BUN 24 H (6.0-23.0) mg/dL Creatinine 0.8 (0.6-1.5) mg/dL Est Cr Clr Drug Dosing 91.44 mL/min Estimated GFR (MDRD) > 60.0 ml/min Glucose 103 (60-110) mg/dL Calcium 9.1 (8.8-10.8) mg/dL Total Bilirubin 0.6 (0.1-1.5) mg/dL AST 24 (5-40) IU/L ALT 38 (8-54) IU/L Alkaline Phosphatase 81 (40-150) Troponin I < 0.10 (0.0-0.29) NG/ML Total Protein 6.3 (6.0-8.0) g/dL Albumin 3.5 (3.4-4.8) g/dL Globulin 2.8 (2.0-3.5) g/dL Albumin/Globulin Ratio 1.3 (1.3-2.8) Amylase 74 (10-90) U/L Lipase 24 (7-80) U/L Urine Color YELLOW Urine Appearance CLEAR Urine pH 6.0 (5.0-8.0) Ur Specific [place] 1.010 (1.001-1.035) Urine Protein NEGATIVE (NEGATIVE) mg/dL Urine Glucose (UA) NEGATIVE (NEGATIVE) mg/dL Urine Ketones NEGATIVE (NEGATIVE) mg/dL Urine Occult Blood NEGATIVE (NEGATIVE) Urine Nitrite NEGATIVE (NEGATIVE) Urine Bilirubin NEGATIVE (NEGATIVE) Urine Urobilinogen 0.2 (<2.0) EU/dL Ur Leukocyte Esterase NEGATIVE (NEGATIVE) Urine RBC 0-1 (0-2/HPF) Urine WBC 0-1 (0-5/HPF) Ur Epithelial Cells RARE (NONE-FEW) Urine Bacteria RARE (NEGATIVE) Meds: Medications Generic Name Dose Route Start Last Admin Trade Name Freq PRN Reason Stop Dose Admin Sodium Chloride 10 ml 03/22/17 14:22 Saline Flush FLUSH ASDIRECTED PRN Keep Vein Open Sodium Chloride 2.5 ml 03/22/17 14:22 Saline Flush FLUSH ASDIRECTED PRN Keep Vein Open Discontinued Medications Generic Name Dose Route Start Last Admin Trade Name Freq PRN Reason Stop Dose Admin Aspirin 324 mg 03/22/17 14:22 03/22/17 15:06 Aspirin PO 03/22/17 14:23 324 mg ONETIME ONE Administration Famotidine 20 mg 03/22/17 14:22 03/22/17 15:07 Pepcid IVPUSH 03/22/17 14:23 20 mg ONETIME ONE Administration Sodium Chloride 1,000 mls @ 999 mls/hr 03/22/17 14:22 03/22/17 15:07 Normal Saline IV 03/22/17 15:22 999 mls/hr .Bolus ONE Administration Sodium Chloride 1,000 mls @ 999 mls/hr 03/22/17 15:44 03/22/17 15:58 Normal Saline IV 03/22/17 16:44 999 mls/hr .Bolus ONE Administration Nitroglycerin 1 gm 03/22/17 14:22 Nitro-Bid 2% TOP 03/22/17 14:23 ONETIME ONE Nitroglycerin 0.4 mg 03/22/17 14:22 Nitrostat SL 03/22/17 14:23 ONETIME ONE Departure - Departure Time of Disposition: 17:27 Disposition: Home, Self-Care 01 Condition: Good Clinical Impression: Gastroenteritis - Discharge Information Prescriptions: Cephalexin [IJD: Cephalexin] 500 mg PO .EVERY 8 HOURS #30 cap Referrals: Bryn Colmenares MD [Primary Care Provider] - Forms: ED Department Discharge Additional Instructions: The following information is given to patients seen in the emergency department who are being discharged to home. This information is to outline your options for follow-up care. We provide all patients seen in our emergency department with a follow-up referral. The need for follow-up, as well as the timing and circumstances, are variable depending upon the specifics of your emergency department visit. If you don't have a primary care physician on staff, we will provide you with a referral. We always advise you to contact your personal physician following an emergency department visit to inform them of the circumstance of the visit and for follow-up with them and/or the need for any referrals to a consulting specialist. The emergency department will also refer you to a specialist when appropriate. This referral assures that you have the opportunity for followup care with a specialist. All of these measure are taken in an effort to provide you with optimal care, which includes your followup. Under all circumstances we always encourage you to contact your private physician who remains a resource for coordinating your care. When calling for followup care, please make the office aware that this follow-up is from your recent emergency room visit. If for any reason you are refused follow-up, please contact the [facility] emergency department at and asked to speak to the emergency department charge nurse. The found to have slightly elevated white count and with the abdominal pain your diagnosis has been gastroenteritis No Abnormalities were noted on the ultrasound of your abdomen Prescription for cephalexin antibiotic 500 mg tablets 1-3 times a day for the next week has been electronically sent to your pharmacy Your chest pressure was not related to cardiovascular disease - My Orders Last 24 Hours: My Active Orders 03/22/17 14:22 Cardiac Monitoring [RC] . DIRECTED EKG Documentation Completion [RC] STAT Oxygen Therapy [RC] ASDIRECTED Sodium Chloride 0.9% [Saline Flush] 10 ml FLUSH ASDIRECTED PRN Sodium Chloride 0.9% [Saline Flush] 2.5 ml FLUSH ASDIRECTED PRN Saline Lock Insert [OM.PC] Stat 03/22/17 15:57 Abdomen Ltd [US] Stat - Assessment/Plan Last 24 Hours: My Active Orders 03/22/17 14:22 Cardiac Monitoring [RC] . DIRECTED EKG Documentation Completion [RC] STAT Oxygen Therapy [RC] ASDIRECTED Sodium Chloride 0.9% [Saline Flush] 10 ml FLUSH ASDIRECTED PRN Sodium Chloride 0.9% [Saline Flush] 2.5 ml FLUSH ASDIRECTED PRN Saline Lock Insert [OM.PC] Stat 03/22/17 15:57 Abdomen Ltd [US] Stat
[2017-03-22 15:09] LABS: CHLORIDE,CL 105 mmol/L (98-110); SODIUM,NA 140 mmol/L (136-146)
--- NOTE | 2017-03-22 15:23 | CR ---
EXAMINATION: Portable chest radiograph. HISTORY: Chest pain. FINDINGS: The trachea is midline. The cardiomediastinal silhouette is within normal limits. No pulmonary infilt rates, effusions or pneumothorax. Osseous structures appear unremarkable. IMPRESSION: No acute cardiopulmonary process.
[2017-03-22 17:45] VITALS: BP 126/70
--- NOTE | 2017-03-25 11:31 | US ---
EXAM DATE: 03/22/17 PATIENT'S AGE: 61 Patient: ASTER BURNETT Facility: [place], [place] Site . Site : [id number] Study: US Abdomen Limited-03/22/2017 4:36:20 PM Ordering Physician: Doctor Oliva Final Report: INDICATION: Lower abdomen pain TECHNIQUE: Targeted abdominal ultrasound. COMPARISON: None. FINDINGS/IMPRESSION: Targeted ultrasound demonstrated no abdominal wall abnormality. Dictated by Benji Zarate MD @ 03/22/2017 5:18:55 PM Dictated by: Benji Zarate MD @ 03/22/2017 17:19:12 (Electronic Signature) Report Signed by Proxy. [facility]IT[facility]
== END 2017-03-22 17:42 | disposition home or self-care (01) ==
LOC: MW.ED 14:05
DX: K52.9 Noninfective gastroenteritis and colitis, unspecified (principal); I11.0 Hypertensive heart disease with heart failure; I50.9 Heart failure, unspecified; G47.30 Sleep apnea, unspecified; J44.9 Chronic obstructive pulmonary disease, unspecified; F41.9 Anxiety disorder, unspecified; Z87.891 Personal history of nicotine dependence; Z79.899 Other long term (current) drug therapy; Z88.2 Allergy status to sulfonamides
CPT/HCPCS: 36415; 71010; 76705; 80053; 81001; 82150; 83690; 84484; 85025; 93005; 96361; 96374; 99284; A9270; J7040; 99283

== ENCOUNTER 2017-04-16 22:29 | Inpatient (IN) | payer MEDICARE, BC ==
[2017-04-16] MEDS ORDERED: Sodium Chloride 0.9% 1,000 ML IV ONE (22:37)
--- NOTE | 2017-04-16 22:39 | EDM.PDOC ---
ED HPI GENERAL MEDICAL PROBLEM - General Stated Complaint: SHORTNESS OF BREATH, PAIN IN RIGHT GROIN AREA Time Seen by Provider: 04/16/17 22:37 - History of Present Illness INITIAL COMMENTS - FREE TEXT/NARRATIVE: HISTORY AND PHYSICAL: History of present illness: Patient 61-year-old male presents with concern of left-sided abdominal pain has been off and on for several weeks he did have a reported ultrasound of his scrotum for prior vent was thought to be related to possible epididymitis this pain is more in his left lower abdomen without associated vomiting diarrhea fever or chills. He denies chest pain shortness of breath or other complaints is been no trauma Review of systems: As per history of present illness and below otherwise all systems reviewed and negative. Past medical history: As per history of present illness and as reviewed below otherwise noncontributory. Surgical history: As per history of present illness and as reviewed below otherwise noncontributory. Social history: No reported history of drug or alcohol abuse. Family history: As per history of present illness and as reviewed below otherwise noncontributory. Physical exam: HEENT: Atraumatic, normocephalic, pupils reactive, negative for conjunctival pallor or scleral icterus, mucous membranes moist, throat clear, neck supple, nontender, trachea midline. Lungs: Clear to auscultation, breath sounds equal bilaterally, chest nontender. Heart: S1S2, regular, negative for clicks, rubs, or JVD. Abdomen: Soft, nondistended, nonlocalized left lower quadrant tenderness to deep palpation no rebound no guarding. Negative for masses or hepatosplenomegaly. Negative for costovertebral tenderness. Pelvis: Stable nontender. Genitourinary: Deferred. Rectal: Deferred. Extremities: Atraumatic, negative for cords or calf pain. Neurovascular unremarkable. Neuro: Awake, alert, oriented. Cranial nerves II through XII unremarkable. Cerebellum unremarkable. Motor and sensory unremarkable throughout. Exam nonfocal. Diagnostics: EBC CMP amylase lipase UA CT abdomen and pelvis with IV contrast Therapeutics: saline 1 L bolus Impression: #1 left-sided abdominal pain Definitive disposition and diagnosis as appropriate pending reevaluation and review of above. - Related Data Allergies Allergy/AdvReac Type Severity Reaction Status Date / Time Sulfa (Sulfonamide Allergy Hives Verified 04/16/17 22:36 Antibiotics) Home Meds: Home Meds Albuterol Sulfate 1 inh NEB QID PRN 04/18/15 [History] Allopurinol [Zyloprim] 300 mg PO DAILY 04/18/15 [History] FLUoxetine [PROzac] 20 mg PO DAILY 04/18/15 [History] LORazepam 1 mg PO ASDIRECTED PRN 04/18/15 [History] Furosemide 40 mg PO BID 02/12/17 [History] Lisinopril 20 mg PO DAILY 02/12/17 [History] Fluticasone/Vilanterol [Breo Ellipta 200-25 Mcg INH] 1 puff INH DAILY 03/04/17 [ History] Montelukast [Singulair] 10 mg PO DAILY 03/04/17 [History] Potassium Chloride 10 meq PO BID 03/04/17 [History] Tamsulosin [Flomax] 0.4 mg PO DAILY 03/04/17 [History] Umeclidinium [place] [Incruse Ellipta*] 62.5 mg INH DAILY 03/04/17 [History] Polyethylene Glycol 3350 [MiraLAX] 17 gm PO ASDIRECTED 03/05/17 [History] diphenhydrAMINE [Benadryl] 50 mg PO BEDTIME 03/05/17 [History] Ondansetron [Zofran ODT] 4 mg PO Q8H PRN #5 tab.dis 03/08/17 [Rx] Past Medical History HEENT History: Reports: Cataract, Other (See Below) Other HEENT History: 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 Denies: Afib, Blood Clots/VTE/DVT Respiratory History: Reports: COPD, Sleep Apnea Other Respiratory History: cpap and 2 L home o2 Gastrointestinal History: Reports: None Musculoskeletal History: Reports: Gout Neurological History: Reports: None. Denies: CVA, TIA Psychiatric History: Reports: Anxiety Endocrine/Metabolic History: Reports: Obesity/BMI 30+ - Infectious Disease History Infectious Disease History: Reports: Chicken Pox, Measles, Mumps - Past Surgical History Cardiovascular Surgical History: Reports: None Respiratory Surgical History: Reports: None GI Surgical History: Reports: Hernia, Abdominal Musculoskeletal Surgical History: Reports: Knee Replacement Social & Family History - Family History Family Medical History: Noncontributory HEENT: Reports: None Cardiac: Reports: Hypertension Respiratory: Reports: Asthma, COPD GI: Reports: None : Reports: None OBGYN: Reports: None Musculoskeletal: Reports: None Neurological: Reports: None Psychiatric: Reports: None Endocrine/Metabolic: Reports: Diabetes, type II Hematologic: Reports: None Immunologic: Reports: None Dermatologic: Reports: None Oncologic: Reports: Other (See Below) Other Oncologic Family History: sister had cancer but he wouldn't know which type - Tobacco Use Smoking Status *Q: Former Smoker Years of Tobacco use: 48 Used Tobacco, but Quit: Yes Month Tobacco Last Used: 6 years ago Second Hand Smoke Exposure: No - Caffeine Use Caffeine Use: Reports: Coffee Caffeine Use Comment: takes 1 pot - Recreational Drug Use Recreational Drug Use: No ED ROS GENERAL - Review of Systems Review Of Systems: ROS reveals no pertinent complaints other than HPI. ED EXAM, GENERAL - Physical Exam Exam: See Below (See dictation) Course - Vital Signs Last Recorded V/S: Last Vital Signs Temp 36.6 C 04/16/17 22:47 Pulse 95 04/17/17 00:27 Resp 19 04/17/17 00:27 BP 121/64 04/17/17 00:27 Pulse Ox 98 04/17/17 00:27 - Orders/Labs/Meds Orders: Active Orders 24 hr Category Date Time Status Abdomen Pelvis w Cont [CT] Stat Exams 04/16/17 22:37 Taken CULTURE BLOOD [BC] Stat Lab 04/17/17 00:33 Ordered CULTURE BLOOD [BC] Stat Lab 04/17/17 00:33 Ordered LACTATE WITH REFLEX [BG] Stat Lab 04/17/17 00:33 Ordered Piperacillin/Tazobactam [Piperacil-Tazobact] 3.375 gm Med 04/17/17 00:32 Ordered Sodium Chloride 0.9% [Normal Saline] 50 ml IV ONETIME metroNIDAZOLE/Normal Saline [Flagyl 500 MG in NS 100 ML Med 04/17/17 00:32 Ordered ] 500 mg Premix Bag 1 bag IV ONETIME Blood Culture x2 Reflex Set [OM.PC] Stat Oth 04/17/17 00:33 Ordered Medication Orders Metronidazole 500 mg/ Premix 100 mls @ 100 mls/hr IV ONETIME ONE Stop: 04/17/17 01:31 Piperacillin Sod/Tazobactam (Sod 3.375 gm/ Sodium Chloride) 50 mls @ 100 mls/ hr IV ONETIME ONE Stop: 04/17/17 01:01 Labs: Laboratory Tests 04/16/17 04/16/17 04/16/17 Range/Units 22:40 22:40 22:50 WBC 13.83 H (4.0-11.0) K/uL RBC 3.81 L (4.50-5.90) M/uL Hgb 12.1 L (13.0-17.0) g/dL Hct 36.8 L (38.0-50.0) % MCV 96.6 (80.0-98.0) fL MCH 31.8 (27.0-32.0) pg MCHC 32.9 (31.0-37.0) g/dL RDW Std Deviation 49.5 (28.0-62.0) fl RDW Coeff of Dean 14 (11.0-15.0) % Plt Count 402 H (150-400) K/uL MPV 9.90 (7.40-12.00) fL Neut % (Auto) 76.9 (48.0-80.0) % Lymph % (Auto) 13.9 L (16.0-40.0) % [place] % (Auto) 8.3 (0.0-15.0) % Eos % (Auto) 0.7 (0.0-7.0) % Baso % (Auto) 0.2 (0.0-1.5) % Neut # (Auto) 10.6 H (1.4-5.7) K/uL Lymph # (Auto) 1.9 (0.6-2.4) K/uL [place] # (Auto) 1.2 H (0.0-0.8) K/uL Eos # (Auto) 0.1 (0.0-0.7) K/uL Baso # (Auto) 0.0 (0.0-0.1) K/uL Nucleated RBC % 0.0 /100WBC Nucleated RBCs # 0 K/uL Sodium 141 (136-146) mmol/L Potassium 4.0 (3.5-5.1) mmol/L Chloride 105 (98-110) mmol/L Carbon Dioxide 23 (21-31) mmol/L BUN 21 (6.0-23.0) mg/dL Creatinine 1.1 (0.6-1.5) mg/dL Est Cr Clr Drug Dosing 66.50 mL/min Estimated GFR (MDRD) > 60.0 ml/min Glucose 134 H (60-110) mg/dL Calcium 9.6 (8.8-10.8) mg/dL Total Bilirubin 0.4 (0.1-1.5) mg/dL AST 29 (5-40) IU/L ALT 32 (8-54) IU/L Alkaline Phosphatase 95 (40-150) Total Protein 7.1 (6.0-8.0) g/dL Albumin 3.6 (3.4-4.8) g/dL Globulin 3.5 (2.0-3.5) g/dL Albumin/Globulin Ratio 1.0 L (1.3-2.8) Amylase 65 (10-90) U/L Lipase 31 (7-80) U/L Urine Color YELLOW Urine Appearance HAZY Urine pH 6.0 (5.0-8.0) Ur Specific [place] >= 1.030 (1.001-1.035) Urine Protein 100 (NEGATIVE) mg/dL Urine Glucose (UA) NEGATIVE (NEGATIVE) mg/dL Urine Ketones 15 H (NEGATIVE) mg/dL Urine Occult Blood NEGATIVE (NEGATIVE) Urine Nitrite NEGATIVE (NEGATIVE) Urine Bilirubin NEGATIVE (NEGATIVE) Urine Urobilinogen 1.0 (<2.0) EU/dL Ur Leukocyte Esterase NEGATIVE (NEGATIVE) Urine RBC 1-2 (0-2/HPF) Urine WBC 1-2 (0-5/HPF) Ur Epithelial Cells RARE (NONE-FEW) Urine Bacteria FEW (NEGATIVE) Urine Mucus LIGHT (NONE-MOD) Meds: Medications Generic Name Dose Route Start Last Admin Trade Name Freq PRN Reason Stop Dose Admin Metronidazole 500 mg/ Premix 100 mls @ 100 mls/hr 04/17/17 00:32 IV 04/17/17 01:31 ONETIME ONE Piperacillin Sod/Tazobactam 50 mls @ 100 mls/hr 04/17/17 00:32 Sod 3.375 gm/ Sodium Chloride IV 04/17/17 01:01 ONETIME ONE Discontinued Medications Generic Name Dose Route Start Last Admin Trade Name Freq PRN Reason Stop Dose Admin Sodium Chloride 1,000 mls @ 999 mls/hr 04/16/17 22:37 04/16/17 22:49 Normal Saline IV 04/16/17 23:37 999 mls/hr STAT ONE Administration Departure - Departure Time of Disposition: 00:35 Disposition: Admitted As Inpatient 64 Condition: Good Clinical Impression: Diverticulitis - Discharge Information - My Orders Last 24 Hours: My Active Orders 04/16/17 22:37 Abdomen Pelvis w Cont [CT] Stat 04/17/17 00:32 Piperacillin/Tazobactam [Piperacil-Tazobact] 3.375 gm Sodium Chloride 0.9% [ Normal Saline] 50 ml IV ONETIME metroNIDAZOLE/Normal Saline [Flagyl 500 MG in NS 100 ML] 500 mg Premix Bag 1 bag IV ONETIME 04/17/17 00:33 CULTURE BLOOD [BC] Stat CULTURE BLOOD [BC] Stat LACTATE WITH REFLEX [BG] Stat Blood Culture x2 Reflex Set [OM.PC] Stat - Assessment/Plan Last 24 Hours: My Active Orders 04/16/17 22:37 Abdomen Pelvis w Cont [CT] Stat 04/17/17 00:32 Piperacillin/Tazobactam [Piperacil-Tazobact] 3.375 gm Sodium Chloride 0.9% [ Normal Saline] 50 ml IV ONETIME metroNIDAZOLE/Normal Saline [Flagyl 500 MG in NS 100 ML] 500 mg Premix Bag 1 bag IV ONETIME 04/17/17 00:33 CULTURE BLOOD [BC] Stat CULTURE BLOOD [BC] Stat LACTATE WITH REFLEX [BG] Stat Blood Culture x2 Reflex Set [OM.PC] Stat
[2017-04-16 23:13] LABS: CHLORIDE,CL 105 mmol/L (98-110); SODIUM,NA 141 mmol/L (136-146)
[2017-04-17] MEDS ORDERED: metroNIDAZOLE/Normal Saline 500 MG in Premix Bag 1 BAG IV ONE (00:32)
[2017-04-17] MEDS ORDERED: Piperacillin/Tazobactam 3.375 GM in Sodium Chloride 0.9% 50 ML IV ONE (00:32)
[2017-04-17] MEDS ORDERED: Sodium Chloride 0.9% 50 ML ONE (00:52)
[2017-04-17] MEDS: Sodium Chloride 0.9% 1,000 ML IV SCH ×2 (01:56→18:32)
[2017-04-17 05:53] LABS: CHLORIDE,CL 108 mmol/L (98-110); SODIUM,NA 142 mmol/L (136-146)
[2017-04-17] MEDS ORDERED: Piperacillin/Tazobactam 3.375 GM in Sodium Chloride 0.9% 50 ML IV SCH (07:00)
[2017-04-17] MEDS ORDERED: Iopamidol 755 Mg/ML 100 ML Bottle IV ONE (07:26)
[2017-04-17] MEDS: metroNIDAZOLE/Normal Saline 500 MG in Premix Bag 1 BAG IV SCH ×2 (08:05→16:34)
--- NOTE | 2017-04-17 10:35 | PCM.HP ---
H&P History of Present Illness - General Date of Service: 04/17/17 Admit Problem/Dx: Admission Diagnosis/Problem Admission Diagnosis/Problem Diverticulitis Source of Information: Patient History Limitations: Reports: No Limitations - History of Present Illness Initial Comments - Free Text/Narative: 61 yo male with history of HTN, CHF, Chronic Respiratory Failure on home O2 at 2L, COPD & MECHE admitted for Acute Diverticulitis. Patient states that pain initially began 3 months ago and khalil progressively worsened. Pain is located below belly button and deep within abdomen. Pain is sharp, intermittent, occurs daily, average 4-5/10 intensity. Pain is exacerbated by large meals. Because of this he has had decreased appetite but continues to drink fluid without difficulty. He denies any nausea, vomiting or bloody stool. He had some low grade fevers but did not measure his temperature. He is passing gas and having bm's. He states he has been more constipated for the past 3 months. He was taking daily fiber supplements and was having regular bm's but then 3 months ago he was instructed by a physician to stop fiber and start daily miralax. Since then he has felt more and more constipated. He still has a bm every 1-2 days but often it is hard and small. He states that his pain was worst few days ago but then he started clear liquid diet and hes felt much better. abdominal Pain Score (Numeric/FACES): 4 - Related Data Allergies/Adverse Reactions: Allergies Allergy/AdvReac Type Severity Reaction Status Date / Time Sulfa (Sulfonamide Allergy Hives Verified 04/16/17 22:36 Antibiotics) Home Medications: Home Meds Albuterol Sulfate 1 inh NEB QID PRN 04/18/15 [History] Allopurinol [Zyloprim] 300 mg PO DAILY 04/18/15 [History] FLUoxetine [PROzac] 20 mg PO DAILY 04/18/15 [History] LORazepam 1 mg PO ASDIRECTED PRN 04/18/15 [History] Furosemide 40 mg PO BID 02/12/17 [History] Lisinopril 20 mg PO DAILY 02/12/17 [History] Fluticasone/Vilanterol [Breo Ellipta 200-25 Mcg INH] 1 puff INH DAILY 03/04/17 [ History] Montelukast [Singulair] 10 mg PO DAILY 03/04/17 [History] Potassium Chloride 10 meq PO BID 03/04/17 [History] Tamsulosin [Flomax] 0.4 mg PO DAILY 03/04/17 [History] Umeclidinium [place] [Incruse Ellipta*] 62.5 mg INH DAILY 03/04/17 [History] Polyethylene Glycol 3350 [MiraLAX] 17 gm PO ASDIRECTED 03/05/17 [History] diphenhydrAMINE [Benadryl] 50 mg PO BEDTIME 03/05/17 [History] Ondansetron [Zofran ODT] 4 mg PO Q8H PRN #5 tab.dis 03/08/17 [Rx] Past Medical History HEENT History: Reports: Cataract, Other (See Below) Other HEENT History: 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, Vertigo Cardiovascular History: Reports: Heart Failure, Hypertension, SOB on Exertion Respiratory History: Reports: COPD, Sleep Apnea Other Respiratory History: cpap and 2 L home o2 Gastrointestinal History: Reports: None Musculoskeletal History: Reports: Gout Neurological History: Reports: None Psychiatric History: Reports: Anxiety Endocrine/Metabolic History: Reports: Obesity/BMI 30+ - Infectious Disease History Infectious Disease History: Reports: Chicken Pox, Measles, Mumps - Past Surgical History Cardiovascular Surgical History: Reports: None Respiratory Surgical History: Reports: None GI Surgical History: Reports: Hernia, Abdominal Musculoskeletal Surgical History: Reports: Knee Replacement Social & Family History - Family History Family Medical History: Noncontributory HEENT: Reports: None Cardiac: Reports: Hypertension Respiratory: Reports: Asthma, COPD GI: Reports: None : Reports: None OBGYN: Reports: None Musculoskeletal: Reports: None Neurological: Reports: None Psychiatric: Reports: None Endocrine/Metabolic: Reports: Diabetes, type II Hematologic: Reports: None Immunologic: Reports: None Dermatologic: Reports: None Oncologic: Reports: Other (See Below) Other Oncologic Family History: sister had cancer but he wouldn't know which type - Tobacco Use Smoking Status *Q: Former Smoker Years of Tobacco use: 48 Used Tobacco, but Quit: Yes Month Tobacco Last Used: 2010 Tobacco Use Comment: Patient states he has not smoked in over 6 years Second Hand Smoke Exposure: No - Caffeine Use Caffeine Use: Reports: Coffee Caffeine Use Comment: takes 1 pot - Recreational Drug Use Recreational Drug Use: No H&P Review of Systems - Review of Systems: Review Of Systems: See Below General: Reports: Decreased Appetite HEENT: Reports: No Symptoms Pulmonary: Reports: No Symptoms Cardiovascular: Reports: No Symptoms Gastrointestinal: Reports: Abdominal Pain, Constipation Genitourinary: Reports: No Symptoms Musculoskeletal: Reports: No Symptoms Skin: Reports: No Symptoms Psychiatric: Reports: No Symptoms Neurological: Reports: No Symptoms Hematologic/Lymphatic: Reports: No Symptoms Immunologic: Reports: No Symptoms Exam - Exam Exam: See Below - Vital Signs Vital Signs: Last Vital Signs Temp 36.7 C 04/17/17 08:00 Pulse 84 04/17/17 08:00 Resp 16 04/17/17 08:00 BP 129/60 04/17/17 08:00 Pulse Ox 95 04/17/17 08:00 Weight: 128 kg - Exam General: Alert, Oriented, Cooperative HEENT: Conjunctiva Clear, EACs Clear, EOMI, Hearing Intact, Mucosa Moist & [place] , Nares Patent, Normal Nasal Septum, Posterior Pharynx Clear, Pupils Equal, Pupils Reactive Neck: Supple, Trachea Midline, +2 Carotid Pulse wo Bruit. No: JVD Lungs: Clear to Auscultation, Normal Respiratory Effort Cardiovascular: Regular Rate, Regular Rhythm GI/Abdominal Exam: Normal Bowel Sounds, Soft, No Distention, Guarding, Tender ( LLQ and hypogastric region). No: Rigid, Rebound, Hepatomegaly, Splenomegaly Back Exam: Normal Inspection Extremities: Normal Inspection, No Pedal Edema, Normal Capillary Refill Peripheral Pulses: 2+: Radial (L), Radial (R), Dorsalis Pedis (L), Dorsalis Pedis (R) Skin: Warm, Dry, Intact Neurological: Cranial Nerves Intact, Reflexes Equal Bilateral Neuro Extensive - Mental Status: Alert, Oriented x3 Psychiatric: Alert, Normal Affect, Normal Mood - Patient Data Lab Results Last 24 hrs: Laboratory Results - last 24 hr 04/17/17 04/17/17 04/17/17 Range/Units 00:50 05:16 05:16 WBC 10.31 (4.0-11.0) K/uL RBC 3.26 L (4.50-5.90) M/uL Hgb 10.2 L (13.0-17.0) g/dL Hct 31.6 L (38.0-50.0) % MCV 96.9 (80.0-98.0) fL MCH 31.3 (27.0-32.0) pg MCHC 32.3 (31.0-37.0) g/dL RDW Std Deviation 50.1 (28.0-62.0) fl RDW Coeff of Dean 14 (11.0-15.0) % Plt Count 341 (150-400) K/uL MPV 9.90 (7.40-12.00) fL Neut % (Auto) 75.5 (48.0-80.0) % Lymph % (Auto) 13.7 L (16.0-40.0) % [place] % (Auto) 9.7 (0.0-15.0) % Eos % (Auto) 0.8 (0.0-7.0) % Baso % (Auto) 0.3 (0.0-1.5) % Neut # (Auto) 7.8 H (1.4-5.7) K/uL Lymph # (Auto) 1.4 (0.6-2.4) K/uL [place] # (Auto) 1.0 H (0.0-0.8) K/uL Eos # (Auto) 0.1 (0.0-0.7) K/uL Baso # (Auto) 0.0 (0.0-0.1) K/uL Nucleated RBC % 0.0 /100WBC Nucleated RBCs # 0 K/uL Lactate 0.9 (0.20-2.00) mmol/L Sodium 142 (136-146) mmol/L Potassium 3.9 (3.5-5.1) mmol/L Chloride 108 (98-110) mmol/L Carbon Dioxide 25 (21-31) mmol/L BUN 20 (6.0-23.0) mg/dL Creatinine 0.8 (0.6-1.5) mg/dL Est Cr Clr Drug Dosing 91.44 mL/min Estimated GFR (MDRD) > 60.0 ml/min Glucose 110 (60-110) mg/dL Calcium 9.0 (8.8-10.8) mg/dL Magnesium 1.4 L (1.5-2.3) mEq/L Total Bilirubin 0.4 (0.1-1.5) mg/dL AST 27 (5-40) IU/L ALT 27 (8-54) IU/L Alkaline Phosphatase 79 (40-150) Total Protein 6.0 (6.0-8.0) g/dL Albumin 3.2 L (3.4-4.8) g/dL Globulin 2.8 (2.0-3.5) g/dL Albumin/Globulin Ratio 1.1 L (1.3-2.8) Result Diagrams: 04/17/17 05:16 04/17/17 05:16 *Q Meaningful Use (ADM) - VTE *Q VTE Criteria *Q: - Stroke *Q Stroke Criteria *Q: - AMI *Q AMI Criteria *Q: Problem List Initiated/Reviewed/Updated: Yes Orders Last 24hrs: Active Orders 24 hr Category Date Time Status NPO [Nothing Per Oral Diet] [DIET] Diet 04/17/17 Breakfast Active Piperacillin/Tazobactam [Piperacil-Tazobact] 3.375 gm Med 04/17/17 07:00 Active Sodium Chloride 0.9% [Normal Saline] 50 ml IV Q6H Sodium Chloride 0.9% [Normal Saline] 1,000 ml Med 04/17/17 01:30 Active IV ASDIRECTED metroNIDAZOLE/Normal Saline [Flagyl 500 MG in NS 100 ML Med 04/17/17 09:00 Active ] 500 mg Premix Bag 1 bag IV Q8H Medication Orders Piperacillin Sod/Tazobactam (Sod 3.375 gm/ Sodium Chloride) 50 mls @ 100 mls/ hr IV Q6H [facility] Last Admin: 04/17/17 06:06 Dose: 100 mls/hr Metronidazole 500 mg/ Premix 100 mls @ 100 mls/hr IV Q8H [facility] Last Admin: 04/17/17 08:05 Dose: 100 mls/hr Sodium Chloride (Normal Saline) 1,000 mls @ 75 mls/hr IV ASDIRECTED [facility] Last Admin: 04/17/17 01:56 Dose: 75 mls/hr Assessment/Plan Comment:: 61 yo male with history of HTN, CHF, Chronic Respiratory Failure on home O2 at 2L, COPD & MECHE admitted for Acute Diverticulitis #Acute Sigmoid Diverticulitis, seen on CT -received Zosyn and Metro in ED -mild to moderate abdominal pain, tolerating PO intake, no nausea/vomiting, no bloody stool, passing gas, having bm's, bowl sounds present, minimal guarding -Lukocytosis at admission, now resolved -CT concerning for possible phlegmon or developing abscess plan: -clear liquid diet -DC Zosyn IV, resume Metro IV, start Cipro IV -mIVF -f/u blood cultures obtained in ED -Acetaminophen PRN for Pain -Oxycodone PRN for severe pain over 10/29 -Zofran PRN for nausea/vomiting -consult general surgery #COPD -duonebs -resume home singulair & Breo #Chronic Respiratory Failure -on Home O2 requirement at 2L #CHF & HTN -resume home Lisinopril 20 mg QD -hold home Lasix 40 mg BID -strict I&O, daily weight checks #Anxiety -resume home Fluoxetine 20 mg QD #Hypomagnasemia -administer Mg 4 gm IV -repeat Mg in AM DVT prophylaxis: Lovenox Dispo: 2-4 days pending
[2017-04-17] MEDS ORDERED: oxyCODONE 5 MG Tab PO PRN (11:14)
[2017-04-17] MEDS ORDERED: Acetaminophen 325 MG Tab PO PRN (11:16)
[2017-04-17] MEDS ORDERED: Albuterol/Ipratropium 3.0-0.5 MG/3 ML Neb Soln NEB PRN (11:19)
[2017-04-17] MEDS: Ciprofloxacin in D5W 400 MG in Premix Bag 1 BAG IV SCH ×4 (11:23→22:23)
[2017-04-17] MEDS ORDERED: Magnesium Sulfate/Water 4 GM in Premix Bag 1 BAG IV ONE (11:52)
[2017-04-17] MEDS: Lisinopril 10 MG Tab PO SCH (12:20)
[2017-04-17] MEDS: Montelukast 10 MG Tab PO SCH (12:20)
--- NOTE | 2017-04-17 13:34 | CT ---
EXAM DATE: 04/17/17 PATIENT'S AGE: 61 Patient: ASTER BURNETT Facility: [place], [place] Site . Site : 1955 Study: CT Abdomen/Pelvis [id number] 11:50:58 PM Ordering Physician: Vianey Eastman Final Report: INDICATION: Groin pain TECHNIQUE: CT Abdomen and pelvis with i.v. contrast. Coronal and sagittal reformats were obtained. CONTRAST: Intravenous COMPARISON: None FINDINGS: Lower chest: Unremarkable. Liver: Unremarkable. Spleen: Unremarkable. Pancreas: Unremarkable. Gallbladder: Unremarkable. Kidney: There is a 1.1 cm cyst in the lower pole of the left kidney. Adrenal: Unremarkable. Bowel: There is an ill-defined low-density structure in the and left lower quadrant, abutting the sigmoid colon. It measures 6.2 x 4.4 cm and likely represents a fluid collection. Adjacent mild wall thickening of the proximal sigmoid colon is noted. The appendix is normal in appearance and size. Vascular: Unremarkable. Lymph: Unremarkable. Peritoneum: Unremarkable. No pneumoperitoneum is seen. No significant ascites is noted. Pelvis: Unremarkable. Soft tissue: Unremarkable. Bone: Unremarkable for age. IMPRESSION: 1. There is an ill-defined low-density structure in the and left lower quadrant , abutting the sigmoid colon. It measures 6.2 x 4.4 cm and likely represents a fluid collection. Adjacent mild wall thickening of the proximal sigmoid colon is noted. These findings are most likely due to acute diverticulitis with an adjacent focus of phlegmon or developing abscess. Dictated by Arun Banerjee MD @ 04/17/2017 12:00:22 AM Dictated by: Arun Banerjee MD @ 04/17/2017 00:01:53 (Electronic Signature) Report Signed by Proxy. [email or web address]
--- NOTE | 2017-04-17 16:54 | PCM.SN ---
- Free Text/Narrative Note: pt seen, chart reviewed; cx dictated, [id number]
--- NOTE | 2017-04-17 22:01 | CONS ---
DATE OF CONSULTATION: 04/17/2017 DATE OF : 1955 PRIMARY CARE PHYSICIAN: None PCP Consult from Dr. Diaz. CONCERNING QUESTION: Abdominal abscess. HISTORY OF PRESENT ILLNESS: The patient is a 61-year-old, morbidly obese, gentleman, and recently discharged from hospital from COPD one week ago and noted for sharp pain, gradual onset, and the patient went to the emergency room and workup included CAT scan. Note for some collection, but there is no free air and the patient was admitted to medical service for further management and Surgery was consulted for input in his management. The patient remarked that he had similar pain and much worse a month ago and was treated with antibiotics, went to the emergency room, got antibiotic and treatment and it went well for a while and now recurred. The patient is now hospital admission and Surgery was consulted. The patient currently denied lot of pain. Pain is still there, but the patient emphasized it is much better and the pain was sharp yesterday when in emergency room and rated as 7/10 and also nauseated and also fever. PAST MEDICAL HISTORY: Significant for no diabetes, GA, CVA, and the patient has hypertension. PAST SURGICAL HISTORY: Laparoscopic umbilical hernia repair with vaginal mesh and also right inguinal hernia repair with mesh. ALLERGIES: Please refer nursing for details. MEDICATION: Please refer nursing for details. REVIEW OF SYSTEMS: Same as history of present illness. PHYSICAL EXAMINATION: GENERAL: A very pleasant gentleman, smiled to the doctor, in no acute distress. HEENT: Normocephalic, atraumatic. Sclerae anicteric. LUNGS: Clear to auscultation. HEART: Regular rate and rhythm. ABDOMEN: Soft, nondistended. No pulsating, tender midline abdominal structure. Still some mild tenderness in the left lower quadrant, but extremely mild almost to none. No rebound tenderness. Large recurrent umbilical hernia in the center. LABORATORY DATA: Upon consultation, white count is 10, H and H is 10 and 32, and platelet is 341. INR was 0.9. D-dimer is 1.0 and BUN is 20, creatinine is 0.8, glucose is 200. IMPRESSION: Either recurrent prep with diverticulitis or microperforation diverticulitis with abscess and is responding very well to antibiotic treatment. Pain is getting better. White count is within normal limits. We will recommend to continue IV antibiotic and continue to hold off p.o. diet at this time to avoid accumulation or microperforation. In case, the patient does not respond to IV antibiotic, the patient will need urgent surgery and the patient will likely need to have a Kasey procedure and in addition to that may need to remove the mesh and the umbilical hernia if it got infected and so it is a pretty big surgery for patient, and fortunately, it looked like he is responding well to antibiotic, we will prefer to even over treat with IV antibiotic and follow up with at least two weeks of p.o. antibiotic. We will follow the patient with you. If all doing fine, continue to progress well, patient should have clear liquid by tomorrow. The patient also has COPD. The patient would be high risk for surgery and may not be able to extubate after surgery and the patient has BMI of 42.9. We were being consulted if the patient needs emergency surgery, the patient probably will need to be transferred to a tertiary care center because of comorbidity if emergency surgery needs indicated. As always, thank you for the kind referral. SHANNON HERNANDEZ /[id number] [place]
[2017-04-18] MEDS: metroNIDAZOLE/Normal Saline 500 MG in Premix Bag 1 BAG IV SCH ×3 (01:03→16:05)
[2017-04-18] MEDS: Sodium Chloride 0.9% 1,000 ML IV SCH (06:47)
[2017-04-18] MEDS: Lisinopril 10 MG Tab PO SCH (08:22)
[2017-04-18] MEDS: FLUoxetine 20 MG Cap PO SCH (08:22)
[2017-04-18] MEDS: Montelukast 10 MG Tab PO SCH (08:22)
[2017-04-18] MEDS: VILANTEROL INH SCH (09:09)
[2017-04-18] MEDS: FLUTICASONE INH SCH (09:09)
--- NOTE | 2017-04-18 11:03 | PCM.SURGPN ---
- General Info Date of Service: 04/18/17 - Review of Systems Gastrointestinal: Reports: No Symptoms (abd pain much improved; and pt is hungry ) - Patient Data Vitals - Most Recent: Last Vital Signs Temp 98.3 F 04/18/17 08:00 Pulse 84 04/18/17 08:00 Resp 20 04/18/17 08:00 BP 146/68 H 04/18/17 08:22 Pulse Ox 95 04/18/17 08:00 Weight - Most Recent: 283 lb 4.704 oz I&O - Last 24 Hours: Intake & Output 04/17/17 04/18/17 04/18/17 22:59 06:59 14:59 Intake Total 810 1147 100 Output Total 300 700 Balance 510 447 100 [place] Results Last 24 Hrs: Microbiology 04/17/17 01:00 Aerobic Blood Culture - Preliminary Blood - Venous - Lab Draw NO GROWTH AFTER 1 DAY Anaerobic Blood Culture - Preliminary NO GROWTH AFTER 1 DAY 04/17/17 00:50 Aerobic Blood Culture - Preliminary Blood - Venous NO GROWTH AFTER 1 DAY Anaerobic Blood Culture - Preliminary NO GROWTH AFTER 1 DAY Med Orders - Current: Current Medications Acetaminophen (Tylenol) 650 mg PO Q6H PRN PRN Reason: Pain Last Admin: 04/17/17 18:35 Dose: 650 mg Albuterol/Ipratropium (Duoneb 3.0-0.5 Mg/3 Ml) 3 ml NEB Q6HRRT PRN PRN Reason: Shortness of Breath Fluoxetine HCl (Prozac) 20 mg PO DAILY [facility] Last Admin: 04/18/17 08:22 Dose: 20 mg Metronidazole 500 mg/ Premix 100 mls @ 100 mls/hr IV Q8H [facility] Last Admin: 04/18/17 08:18 Dose: 100 mls/hr Sodium Chloride (Normal Saline) 1,000 mls @ 75 mls/hr IV ASDIRECTED [facility] Last Admin: 04/18/17 06:47 Dose: 75 mls/hr Ciprofloxacin/Dextrose 400 mg/ (Premix) 200 mls @ 200 mls/hr IV Q12H [facility] Last Admin: 04/17/17 22:23 Dose: 200 mls/hr Lisinopril (Prinivil) 20 mg PO DAILY [facility] Last Admin: 04/18/17 08:22 Dose: 20 mg Montelukast Sodium (Singulair) 10 mg PO DAILY [facility] Last Admin: 04/18/17 08:22 Dose: 10 mg Oxycodone HCl (Oxycodone) 5 mg PO Q6H PRN PRN Reason: severe pain over 7 Fluticasone/ (Vilanterol 100/25) 1 each INH DAILY [facility] Last Admin: 04/18/17 09:09 Dose: 1 each Discontinued Medications Sodium Chloride (Normal Saline) 1,000 mls @ 999 mls/hr IV STAT ONE Stop: 04/16/17 23:37 Last Admin: 04/16/17 22:49 Dose: 999 mls/hr Metronidazole 500 mg/ Premix 100 mls @ 100 mls/hr IV ONETIME ONE Stop: 04/17/17 01:31 Last Admin: 04/17/17 00:54 Dose: 100 mls/hr Piperacillin Sod/Tazobactam (Sod 3.375 gm/ Sodium Chloride) 50 mls @ 100 mls/ hr IV ONETIME ONE Stop: 04/17/17 01:01 Last Admin: 04/17/17 00:53 Dose: 100 mls/hr Sodium Chloride (Normal Saline) Confirm Administered Dose 50 mls @ as directed .ROUTE .STK-MED ONE Stop: 04/17/17 00:53 Last Admin: 04/17/17 00:53 Dose: Not Given Piperacillin Sod/Tazobactam (Sod 3.375 gm/ Sodium Chloride) 50 mls @ 100 mls/ hr IV Q6H [facility] Last Admin: 04/17/17 06:06 Dose: 100 mls/hr Magnesium Sulfate 4 gm/ Premix 100 mls @ 50 mls/hr IV ONETIME ONE Stop: 04/17/17 13:51 Last Admin: 04/17/17 12:24 Dose: 50 mls/hr Iopamidol (Isovue-370 (76%)) 100 ml IV .STK-MED ONE Stop: 04/17/17 07:27 - Exam GI/Abdominal Exam: Soft, Non-Tender, No Distention - Problem List Review Problem List Initiated/Reviewed/Updated: Yes - My Orders Last 24 Hours: Active Orders 24 hr Category Date Time Status Notify Provider Consults [RC] ASDIRECTED Care 04/17/17 11:15 Active RT Aerosol Therapy [RC] ASDIRECTED Care 04/17/17 11:20 Active Weight Daily [Height and Weight] [RC] DAILY Care 04/17/17 12:56 Active Consult to Physician [CONS] Routine Cons 04/17/17 11:14 Active Clear Liquid Diet [DIET] Diet 04/18/17 Breakfast Active Acetaminophen [Tylenol] Med 04/17/17 11:16 Active 650 mg PO Q6H PRN Albuterol/Ipratropium [DuoNeb 3.0-0.5 MG/3 ML] Med 04/17/17 11:19 Active 3 ml NEB Q6HRRT PRN Ciprofloxacin in D5W [Cipro in D5W 400 MG/200 ML] 400 Med 04/17/17 11:15 Active mg Premix Bag 1 bag IV Q12H FLUoxetine [PROzac] Med 04/18/17 09:00 Active 20 mg PO DAILY Lisinopril [Prinivil] Med 04/17/17 11:19 Active 20 mg PO DAILY Montelukast [Singulair] Med 04/17/17 11:30 Active 10 mg PO DAILY Patient's Own Medication [Ptom] Med 04/18/17 09:00 Active 1 each INH DAILY oxyCODONE Med 04/17/17 11:14 Active 5 mg PO Q6H PRN Medication Orders Acetaminophen (Tylenol) 650 mg PO Q6H PRN PRN Reason: Pain Last Admin: 04/17/17 18:35 Dose: 650 mg Albuterol/Ipratropium (Duoneb 3.0-0.5 Mg/3 Ml) 3 ml NEB Q6HRRT PRN PRN Reason: Shortness of Breath Fluoxetine HCl (Prozac) 20 mg PO DAILY [facility] Last Admin: 04/18/17 08:22 Dose: 20 mg Metronidazole 500 mg/ Premix 100 mls @ 100 mls/hr IV Q8H [facility] Last Admin: 04/18/17 08:18 Dose: 100 mls/hr Infusion: 04/18/17 02:03 Dose: 100 mls/hr Admin: 04/18/17 01:03 Dose: 100 mls/hr Infusion: 04/17/17 17:34 Dose: 100 mls/hr Admin: 04/17/17 16:34 Dose: 100 mls/hr Infusion: 04/17/17 09:05 Dose: 100 mls/hr Admin: 04/17/17 08:05 Dose: 100 mls/hr Sodium Chloride (Normal Saline) 1,000 mls @ 75 mls/hr IV ASDIRECTED [facility] Last Admin: 04/18/17 06:47 Dose: 75 mls/hr Infusion: 04/18/17 06:47 Dose: 75 mls/hr Admin: 04/17/17 18:32 Dose: 75 mls/hr Infusion: 04/17/17 15:16 Dose: 75 mls/hr Admin: 04/17/17 01:56 Dose: 75 mls/hr Ciprofloxacin/Dextrose 400 mg/ (Premix) 200 mls @ 200 mls/hr IV Q12H [facility] Last Admin: 04/17/17 22:23 Dose: 200 mls/hr Infusion: 04/17/17 12:23 Dose: 200 mls/hr Admin: 04/17/17 11:23 Dose: 200 mls/hr Lisinopril (Prinivil) 20 mg PO DAILY [facility] Last Admin: 04/18/17 08:22 Dose: 20 mg Admin: 04/17/17 12:20 Dose: 20 mg Montelukast Sodium (Singulair) 10 mg PO DAILY [facility] Last Admin: 04/18/17 08:22 Dose: 10 mg Admin: 04/17/17 12:20 Dose: 10 mg Oxycodone HCl (Oxycodone) 5 mg PO Q6H PRN PRN Reason: severe pain over 7/10 Fluticasone/ (Vilanterol 100/25) 1 each INH DAILY [facility] Last Admin: 04/18/17 09:09 Dose: 1 each - Assessment Assessment (Free Text/Narrative):: REsponded well to iv abx, would contiue iv abx; ok to start po clear now, and if doing well, will advance tomorrow am; anticipate pt on iv abx for at least 2 more days; if continue to do well, will then dc home on po abx - Plan Plan (Free Text/Narrative):: REsponded well to iv abx, would contiue iv abx; ok to start po clear now, and if doing well, will advance tomorrow am; anticipate pt on iv abx for at least 2 more days; if continue to do well, will then dc home on po abx
[2017-04-18] MEDS: Ciprofloxacin in D5W 400 MG in Premix Bag 1 BAG IV SCH ×4 (11:24→22:55)
[2017-04-18] MEDS: Heparin Sodium 5,000 Units/ML Vial SUBCUT SCH ×2 (13:27→20:45)
--- NOTE | 2017-04-18 16:58 | PCM.PN ---
- General Info Date of Service: 04/18/17 Admission Dx/Problem (Free Text): Admission Diagnosis/Problem Admission Diagnosis/Problem Diverticulitis Subjective Update: Patient doing well. He is tolerating clear liquid diet that was started yesterday. He is passing gas. He denies any current abdominal pain and it has been controlled without medication. Functional Status: Reports: Pain Controlled, Tolerating Diet, Ambulating, Urinating - Review of Systems General: Reports: No Symptoms HEENT: Reports: No Symptoms Pulmonary: Reports: No Symptoms Cardiovascular: Reports: No Symptoms Gastrointestinal: Reports: No Symptoms Genitourinary: Reports: No Symptoms Musculoskeletal: Reports: No Symptoms Skin: Reports: No Symptoms Neurological: Reports: No Symptoms Psychiatric: Reports: No Symptoms - Patient Data Vitals - Most Recent: Last Vital Signs Temp 36.3 C 04/18/17 15:46 Pulse 83 04/18/17 15:46 Resp 20 04/18/17 15:46 BP 146/75 H 04/18/17 15:46 Pulse Ox 96 04/18/17 15:46 Weight - Most Recent: 128.5 kg I&O - Last 24 Hours: Intake & Output 04/18/17 04/18/17 04/18/17 06:59 14:59 22:59 Intake Total 3480 796 0953 Output Total 700 1250 Balance 447 100 441 [place]ma Results Last 24 Hours: Microbiology 04/17/17 01:00 Aerobic Blood Culture - Preliminary Blood - Venous - Lab Draw NO GROWTH AFTER 1 DAY Anaerobic Blood Culture - Preliminary NO GROWTH AFTER 1 DAY 04/17/17 00:50 Aerobic Blood Culture - Preliminary Blood - Venous NO GROWTH AFTER 1 DAY Anaerobic Blood Culture - Preliminary NO GROWTH AFTER 1 DAY Med Orders - Current: Current Medications Acetaminophen (Tylenol) 650 mg PO Q6H PRN PRN Reason: Pain Last Admin: 04/17/17 18:35 Dose: 650 mg Albuterol/Ipratropium (Duoneb 3.0-0.5 Mg/3 Ml) 3 ml NEB Q6HRRT PRN PRN Reason: Shortness of Breath Fluoxetine HCl (Prozac) 20 mg PO DAILY [facility] Last Admin: 04/18/17 08:22 Dose: 20 mg Heparin Sodium (Porcine) (Heparin Sodium) 5,000 units SUBCUT Q8H [facility] Last Admin: 04/18/17 13:27 Dose: 5,000 units Metronidazole 500 mg/ Premix 100 mls @ 100 mls/hr IV Q8H [facility] Last Admin: 04/18/17 16:05 Dose: 100 mls/hr Sodium Chloride (Normal Saline) 1,000 mls @ 75 mls/hr IV ASDIRECTED [facility] Last Admin: 04/18/17 06:47 Dose: 75 mls/hr Ciprofloxacin/Dextrose 400 mg/ (Premix) 200 mls @ 200 mls/hr IV Q12H [facility] Last Admin: 04/18/17 11:24 Dose: 200 mls/hr Lisinopril (Prinivil) 20 mg PO DAILY [facility] Last Admin: 04/18/17 08:22 Dose: 20 mg Montelukast Sodium (Singulair) 10 mg PO DAILY [facility] Last Admin: 04/18/17 08:22 Dose: 10 mg Oxycodone HCl (Oxycodone) 5 mg PO Q6H PRN PRN Reason: severe pain over 7/10 Fluticasone/ (Vilanterol 100/25) 1 each INH DAILY [facility] Last Admin: 04/18/17 09:09 Dose: 1 each Discontinued Medications Sodium Chloride (Normal Saline) 1,000 mls @ 999 mls/hr IV STAT ONE Stop: 04/16/17 23:37 Last Admin: 04/16/17 22:49 Dose: 999 mls/hr Metronidazole 500 mg/ Premix 100 mls @ 100 mls/hr IV ONETIME ONE Stop: 04/17/17 01:31 Last Admin: 04/17/17 00:54 Dose: 100 mls/hr Piperacillin Sod/Tazobactam (Sod 3.375 gm/ Sodium Chloride) 50 mls @ 100 mls/ hr IV ONETIME ONE Stop: 04/17/17 01:01 Last Admin: 04/17/17 00:53 Dose: 100 mls/hr Sodium Chloride (Normal Saline) Confirm Administered Dose 50 mls @ as directed .ROUTE .STK-MED ONE Stop: 04/17/17 00:53 Last Admin: 04/17/17 00:53 Dose: Not Given Piperacillin Sod/Tazobactam (Sod 3.375 gm/ Sodium Chloride) 50 mls @ 100 mls/ hr IV Q6H [facility] Last Admin: 04/17/17 06:06 Dose: 100 mls/hr Magnesium Sulfate 4 gm/ Premix 100 mls @ 50 mls/hr IV ONETIME ONE Stop: 04/17/17 13:51 Last Admin: 04/17/17 12:24 Dose: 50 mls/hr Iopamidol (Isovue-370 (76%)) 100 ml IV .STK-MED ONE Stop: 04/17/17 07:27 - Exam General: Alert, Oriented, Cooperative, No Acute Distress HEENT: Pupils Equal, Pupils Reactive, EOMI, Mucous Membr. Moist/[place] Neck: Supple, No JVD Lungs: Clear to Auscultation, Normal Respiratory Effort Cardiovascular: Regular Rate, Regular Rhythm GI/Abdominal Exam: Normal Bowel Sounds, Soft, Non-Tender. No: Guarding, Rigid, Rebound, Hepatomegaly, Splenomegaly Back Exam: Normal Inspection Extremities: Normal Inspection, No Pedal Edema, Normal Capillary Refill Skin: Intact Neurological: No New Focal Deficit Psy/Mental Status: Alert, Normal Affect, Normal Mood - Problem List Review Problem List Initiated/Reviewed/Updated: Yes - My Orders Last 24 Hours: My Active Orders 04/18/17 09:00 FLUoxetine [PROzac] 20 mg PO DAILY Patient's Own Medication [Ptom] 1 each INH DAILY - Plan Plan:: 61 yo male with history of HTN, CHF, Chronic Respiratory Failure on home O2 at 2L, COPD & MECHE admitted for Acute Diverticulitis with complications #Acute Sigmoid Diverticulitis -CT concerning for possible phlegmon or developing abscess -ongoing to 2-3 months, patient failed outpatient therapy -Dr. Santoro from General surgery was consulted who rec's IV antibiotics with close monitoring due to possible abscess and/or microperforation. Due to patient having mesh in place from previous hernia repair, he would require specialized surgical services unavailable at our facility. Patient should there be monitored closely for improvement and should any alarming symptoms develop he would require emergent transfer for diverticulitis complications. plan: -resume Cipro IV and Metro IV -mIVF -Acetaminophen PRN for Pain -Oxycodone PRN for severe pain over 7/10 -Zofran PRN for nausea/vomiting -Clear liquid diet -as per Dr. Santoro orders, appreciate the rec's #COPD -duonebs -resume home singulair & Breo #Chronic Respiratory Failure -on Home O2 requirement at 2L #CHF & HTN -resume home Lisinopril 20 mg QD -hold home Lasix 40 mg BID -strict I&O, daily weight checks #Anxiety -resume home Fluoxetine 20 mg QD #Hypomagnasemia, corrected -repeat Mg in AM DVT prophylaxis: Lovenox Dispo: 2-4 days pending
[2017-04-19] MEDS: Sodium Chloride 0.9% 1,000 ML IV SCH (00:13)
[2017-04-19] MEDS: metroNIDAZOLE/Normal Saline 500 MG in Premix Bag 1 BAG IV SCH ×2 (00:13→08:44)
[2017-04-19] MEDS: Heparin Sodium 5,000 Units/ML Vial SUBCUT SCH ×2 (03:49→11:35)
[2017-04-19 05:26] LABS: CHLORIDE,CL 107 mmol/L (98-110); SODIUM,NA 140 mmol/L (136-146)
[2017-04-19] MEDS: Montelukast 10 MG Tab PO SCH (08:42)
[2017-04-19] MEDS: Lisinopril 10 MG Tab PO SCH (08:42)
[2017-04-19] MEDS: FLUoxetine 20 MG Cap PO SCH (08:42)
--- NOTE | 2017-04-19 08:45 | PCM.PN ---
- General Info Date of Service: 04/19/17 Admission Dx/Problem (Free Text): Admission Diagnosis/Problem Admission Diagnosis/Problem Diverticulitis Subjective Update: No overnight events. Patient continues to pain. He is tolerating his clear liquid diet. He denies fever, nausea or vomiting. He does state he has had 8 episodes of diarrhea that began yesterday evening. Functional Status: Reports: Pain Controlled, Tolerating Diet, Ambulating, Urinating - Review of Systems General: Reports: No Symptoms HEENT: Reports: No Symptoms Pulmonary: Reports: No Symptoms Cardiovascular: Reports: No Symptoms Gastrointestinal: Reports: Diarrhea Genitourinary: Reports: No Symptoms Musculoskeletal: Reports: No Symptoms Skin: Reports: No Symptoms Neurological: Reports: No Symptoms Psychiatric: Reports: No Symptoms - Patient Data Vitals - Most Recent: Last Vital Signs Temp 37.2 C 04/19/17 04:00 Pulse 75 04/19/17 04:00 Resp 20 04/19/17 04:00 BP 145/82 H 04/19/17 04:00 Pulse Ox 96 04/19/17 04:00 Weight - Most Recent: 128 kg I&O - Last 24 Hours: Intake & Output 04/18/17 04/19/17 04/19/17 22:59 06:59 14:59 Intake Total 1791 1668 Output Total 1250 720 Balance 541 948 Lab Results Last 24 Hours: Laboratory Results - last 24 hr 04/19/17 04/19/17 Range/Units 04:32 04:32 WBC 8.56 (4.0-11.0) K/uL RBC 3.44 L (4.50-5.90) M/uL Hgb 10.5 L (13.0-17.0) g/dL Hct 33.0 L (38.0-50.0) % MCV 95.9 (80.0-98.0) fL MCH 30.5 (27.0-32.0) pg MCHC 31.8 (31.0-37.0) g/dL RDW Std Deviation 47.5 (28.0-62.0) fl RDW Coeff of Dean 14 (11.0-15.0) % Plt Count 345 (150-400) K/uL MPV 9.90 (7.40-12.00) fL Neut % (Auto) 72.5 (48.0-80.0) % Lymph % (Auto) 15.5 L (16.0-40.0) % [place] % (Auto) 9.6 (0.0-15.0) % Eos % (Auto) 2.0 (0.0-7.0) % Baso % (Auto) 0.4 (0.0-1.5) % Neut # (Auto) 6.2 H (1.4-5.7) K/uL Lymph # (Auto) 1.3 (0.6-2.4) K/uL [place] # (Auto) 0.8 (0.0-0.8) K/uL Eos # (Auto) 0.2 (0.0-0.7) K/uL Baso # (Auto) 0.0 (0.0-0.1) K/uL Nucleated RBC % 0.0 /100WBC Nucleated RBCs # 0 K/uL Sodium 140 (136-146) mmol/L Potassium 4.5 (3.5-5.1) mmol/L Chloride 107 (98-110) mmol/L Carbon Dioxide 26 (21-31) mmol/L BUN 8 (6.0-23.0) mg/dL Creatinine 0.7 (0.6-1.5) mg/dL Est Cr Clr Drug Dosing 104.89 mL/min Estimated GFR (MDRD) > 60.0 ml/min Glucose 105 (60-110) mg/dL Calcium 8.7 L (8.8-10.8) mg/dL Chema Results Last 24 Hours: Microbiology 04/17/17 01:00 Aerobic Blood Culture - Preliminary Blood - Venous - Lab Draw NO GROWTH AFTER 2 DAYS Anaerobic Blood Culture - Preliminary NO GROWTH AFTER 2 DAYS 04/17/17 00:50 Aerobic Blood Culture - Preliminary Blood - Venous NO GROWTH AFTER 2 DAYS Anaerobic Blood Culture - Preliminary NO GROWTH AFTER 2 DAYS Med Orders - Current: Current Medications Acetaminophen (Tylenol) 650 mg PO Q6H PRN PRN Reason: Pain Last Admin: 04/17/17 18:35 Dose: 650 mg Albuterol/Ipratropium (Duoneb 3.0-0.5 Mg/3 Ml) 3 ml NEB Q6HRRT PRN PRN Reason: Shortness of Breath Fluoxetine HCl (Prozac) 20 mg PO DAILY [facility] Last Admin: 04/18/17 08:22 Dose: 20 mg Heparin Sodium (Porcine) (Heparin Sodium) 5,000 units SUBCUT Q8H [facility] Last Admin: 04/19/17 03:49 Dose: 5,000 units Metronidazole 500 mg/ Premix 100 mls @ 100 mls/hr IV Q8H [facility] Last Admin: 04/19/17 00:13 Dose: 100 mls/hr Sodium Chloride (Normal Saline) 1,000 mls @ 75 mls/hr IV ASDIRECTED [facility] Last Admin: 04/19/17 00:13 Dose: 75 mls/hr Ciprofloxacin/Dextrose 400 mg/ (Premix) 200 mls @ 200 mls/hr IV Q12H [facility] Last Admin: 04/18/17 22:55 Dose: 200 mls/hr Lisinopril (Prinivil) 20 mg PO DAILY [facility] Last Admin: 04/18/17 08:22 Dose: 20 mg Montelukast Sodium (Singulair) 10 mg PO DAILY [facility] Last Admin: 04/18/17 08:22 Dose: 10 mg Oxycodone HCl (Oxycodone) 5 mg PO Q6H PRN PRN Reason: severe pain over 7/10 Fluticasone/ (Vilanterol 100/25) 1 each INH DAILY [facility] Last Admin: 04/18/17 09:09 Dose: 1 each Discontinued Medications Sodium Chloride (Normal Saline) 1,000 mls @ 999 mls/hr IV STAT ONE Stop: 04/16/17 23:37 Last Admin: 04/16/17 22:49 Dose: 999 mls/hr Metronidazole 500 mg/ Premix 100 mls @ 100 mls/hr IV ONETIME ONE Stop: 04/17/17 01:31 Last Admin: 04/17/17 00:54 Dose: 100 mls/hr Piperacillin Sod/Tazobactam (Sod 3.375 gm/ Sodium Chloride) 50 mls @ 100 mls/ hr IV ONETIME ONE Stop: 04/17/17 01:01 Last Admin: 04/17/17 00:53 Dose: 100 mls/hr Sodium Chloride (Normal Saline) Confirm Administered Dose 50 mls @ as directed .ROUTE .STK-MED ONE Stop: 04/17/17 00:53 Last Admin: 04/17/17 00:53 Dose: Not Given Piperacillin Sod/Tazobactam (Sod 3.375 gm/ Sodium Chloride) 50 mls @ 100 mls/ hr IV Q6H [facility] Last Admin: 04/17/17 06:06 Dose: 100 mls/hr Magnesium Sulfate 4 gm/ Premix 100 mls @ 50 mls/hr IV ONETIME ONE Stop: 04/17/17 13:51 Last Admin: 04/17/17 12:24 Dose: 50 mls/hr Iopamidol (Isovue-370 (76%)) 100 ml IV .STK-MED ONE Stop: 04/17/17 07:27 - Exam Quality Assessment: Supplemental Oxygen General: Alert, Oriented, Cooperative, No Acute Distress Lungs: Normal Respiratory Effort, Crackles Cardiovascular: Regular Rate, Regular Rhythm GI/Abdominal Exam: Normal Bowel Sounds, Soft, Non-Tender. No: Guarding, Rigid, Rebound Back Exam: Normal Inspection Extremities: Normal Inspection, Normal Capillary Refill Skin: Intact Neurological: No New Focal Deficit - Problem List Review Problem List Initiated/Reviewed/Updated: Yes - My Orders Last 24 Hours: My Active Orders 04/18/17 09:00 FLUoxetine [PROzac] 20 mg PO DAILY Patient's Own Medication [Ptom] 1 each INH DAILY - Plan Plan:: 61 yo male with history of HTN, CHF, Chronic Respiratory Failure on home O2 at 2L, COPD & MECHE admitted for Acute Diverticulitis with complications #Acute Sigmoid Diverticulitis with complication -ongoing to 2-3 months, patient failed outpatient therapy -CT concerning for possible phlegmon or developing abscess -Dr. Santoro from General surgery was consulted who rec's IV antibiotics with close monitoring due to possible abscess and/or microperforation. Due to patient having mesh in place from previous hernia repair, he would require specialized surgical services unavailable at our facility. Patient should there be monitored closely for improvement and should any alarming symptoms develop he would require emergent transfer for diverticulitis complications -patient continues to improve, tolerating PO intake, afebrile, no nausea/ vomiting, passing gas and having bowel movements, normal bowel sounds plan: -continue Cipro IV and Metro IV, currently on day 3/4 of IV antibiotics -mIVF, Acetaminophen PRN for Pain, Oxycodone PRN for severe pain over 7/10, Zofran PRN for nausea/vomiting -clear liquid diet, advance as per orders of Dr. Santoro, appreciate the rec's #Diarrhea -check stool c. diff toxin #COPD -duonebs -resume home singulair & Breo #Chronic Respiratory Failure -on Home O2 requirement at 2L #CHF & HTN -resume home Lisinopril 20 mg QD -hold home Lasix 40 mg BID -strict I&O, daily weight checks #Anxiety -resume home Fluoxetine 20 mg QD #Hypomagnasemia, corrected DVT prophylaxis: Lovenox Dispo: 1-2 days days pending
[2017-04-19] MEDS: FLUTICASONE INH SCH (08:47)
[2017-04-19] MEDS: VILANTEROL INH SCH (08:47)
[2017-04-19] MEDS: Ciprofloxacin in D5W 400 MG in Premix Bag 1 BAG IV SCH ×2 (10:50)
[2017-04-19] MEDS ORDERED: Ondansetron 4 MG/2 ML SDV IVPUSH PRN (11:45)
[2017-04-19 12:35] VITALS: BP 141/72
--- NOTE | 2017-04-19 13:53 | PCM.DCSUM1 ---
Discharge Summary - Discharge Data Discharge Date: 04/19/17 Discharge Disposition: Home, Self-Care 01 Condition: Good - Patient Summary/Data Consults: Consultations 04/17/17 11:14 Consult to Physician [CONS] Routine - Patient Instructions Diet, Other: as per general surgery instructions Activity: As Tolerated Notify Provider of: Fever, Increased Pain, Swelling and Redness, Drainage, Nausea and/or Vomiting - Discharge Plan Prescriptions/Med Rec: Levofloxacin 750 mg PO DAILY 14 Days #14 tablet metroNIDAZOLE [Flagyl] 500 mg PO QID 14 Days #56 tablet Home Medications: Home Meds Albuterol Sulfate 1 inh NEB QID PRN 04/18/15 [History] Allopurinol [Zyloprim] 300 mg PO DAILY 04/18/15 [History] FLUoxetine [PROzac] 20 mg PO DAILY 04/18/15 [History] LORazepam 1 mg PO ASDIRECTED PRN 04/18/15 [History] Furosemide 40 mg PO BID 02/12/17 [History] Lisinopril 20 mg PO DAILY 02/12/17 [History] Fluticasone/Vilanterol [Breo Ellipta 200-25 Mcg INH] 1 puff INH DAILY 03/04/17 [ History] Montelukast [Singulair] 10 mg PO DAILY 03/04/17 [History] Potassium Chloride 10 meq PO BID 03/04/17 [History] Tamsulosin [Flomax] 0.4 mg PO DAILY 03/04/17 [History] Umeclidinium [place] [Incruse Ellipta*] 62.5 mg INH DAILY 03/04/17 [History] Polyethylene Glycol 3350 [MiraLAX] 17 gm PO ASDIRECTED 03/05/17 [History] diphenhydrAMINE [Benadryl] 50 mg PO BEDTIME 03/05/17 [History] Ondansetron [Zofran ODT] 4 mg PO Q8H PRN #5 tab.dis 03/08/17 [Rx] Levofloxacin 750 mg PO DAILY 14 Days #14 tablet 04/19/17 [Rx] metroNIDAZOLE [Flagyl] 500 mg PO QID 14 Days #56 tablet 04/19/17 [Rx] Patient Handouts: Diverticulitis, [facility] Forms: ED Department Discharge Referrals: Willi Santoro MD [Physician] - 04/26/17 9:30 am Bryn Colmenares MD [Physician] - 04/26/17 10:30 am - Patient Data Vitals - Most Recent: Last Vital Signs Temp 36.8 C 04/19/17 12:00 Pulse 76 04/19/17 12:00 Resp 16 04/19/17 12:00 BP 141/72 H 04/19/17 12:00 Pulse Ox 94 L 04/19/17 12:00 Weight - Most Recent: 128 kg I&O - Last 24 hours: Intake & Output 04/18/17 04/19/17 04/19/17 22:59 06:59 14:59 Intake Total 1791 1668 300 Output Total 1250 720 Balance 541 948 300 Lab Results - Last 24 hrs: Laboratory Results - last 24 hr 04/19/17 04/19/17 Range/Units 04:32 04:32 WBC 8.56 (4.0-11.0) K/uL RBC 3.44 L (4.50-5.90) M/uL Hgb 10.5 L (13.0-17.0) g/dL Hct 33.0 L (38.0-50.0) % MCV 95.9 (80.0-98.0) fL MCH 30.5 (27.0-32.0) pg MCHC 31.8 (31.0-37.0) g/dL RDW Std Deviation 47.5 (28.0-62.0) fl RDW Coeff of Dean 14 (11.0-15.0) % Plt Count 345 (150-400) K/uL MPV 9.90 (7.40-12.00) fL Neut % (Auto) 72.5 (48.0-80.0) % Lymph % (Auto) 15.5 L (16.0-40.0) % [place] % (Auto) 9.6 (0.0-15.0) % Eos % (Auto) 2.0 (0.0-7.0) % Baso % (Auto) 0.4 (0.0-1.5) % Neut # (Auto) 6.2 H (1.4-5.7) K/uL Lymph # (Auto) 1.3 (0.6-2.4) K/uL [place] # (Auto) 0.8 (0.0-0.8) K/uL Eos # (Auto) 0.2 (0.0-0.7) K/uL Baso # (Auto) 0.0 (0.0-0.1) K/uL Nucleated RBC % 0.0 /100WBC Nucleated RBCs # 0 K/uL Sodium 140 (136-146) mmol/L Potassium 4.5 (3.5-5.1) mmol/L Chloride 107 (98-110) mmol/L Carbon Dioxide 26 (21-31) mmol/L BUN 8 (6.0-23.0) mg/dL Creatinine 0.7 (0.6-1.5) mg/dL Est Cr Clr Drug Dosing 104.89 mL/min Estimated GFR (MDRD) > 60.0 ml/min Glucose 105 (60-110) mg/dL Calcium 8.7 L (8.8-10.8) mg/dL [facility]DA Results - Last 24 hrs: Microbiology 04/19/17 11:40 Clostridium difficile Toxin A&B (M) - Final Stool / Feces Negative for C.Diff Toxin/AG 04/17/17 01:00 Aerobic Blood Culture - Preliminary Blood - Venous - Lab Draw NO GROWTH AFTER 2 DAYS Anaerobic Blood Culture - Preliminary NO GROWTH AFTER 2 DAYS 04/17/17 00:50 Aerobic Blood Culture - Preliminary Blood - Venous NO GROWTH AFTER 2 DAYS Anaerobic Blood Culture - Preliminary NO GROWTH AFTER 2 DAYS Med Orders - Current: Current Medications Acetaminophen (Tylenol) 650 mg PO Q6H PRN PRN Reason: Pain Last Admin: 04/17/17 18:35 Dose: 650 mg Albuterol/Ipratropium (Duoneb 3.0-0.5 Mg/3 Ml) 3 ml NEB Q6HRRT PRN PRN Reason: Shortness of Breath Fluoxetine HCl (Prozac) 20 mg PO DAILY [facility] Last Admin: 04/19/17 08:42 Dose: 20 mg Heparin Sodium (Porcine) (Heparin Sodium) 5,000 units SUBCUT Q8H [facility] Last Admin: 04/19/17 11:35 Dose: 5,000 units Metronidazole 500 mg/ Premix 100 mls @ 100 mls/hr IV Q8H [facility] Last Admin: 04/19/17 08:44 Dose: 100 mls/hr Sodium Chloride (Normal Saline) 1,000 mls @ 75 mls/hr IV ASDIRECTED [facility] Last Admin: 04/19/17 00:13 Dose: 75 mls/hr Ciprofloxacin/Dextrose 400 mg/ (Premix) 200 mls @ 200 mls/hr IV Q12H [facility] Last Admin: 04/19/17 10:50 Dose: 200 mls/hr Lisinopril (Prinivil) 20 mg PO DAILY [facility] Last Admin: 04/19/17 08:42 Dose: 20 mg Montelukast Sodium (Singulair) 10 mg PO DAILY [facility] Last Admin: 04/19/17 08:42 Dose: 10 mg Ondansetron HCl (Zofran) 4 mg IVPUSH Q6H PRN PRN Reason: Nausea/Vomiting Last Admin: 04/19/17 12:53 Dose: 4 mg Oxycodone HCl (Oxycodone) 5 mg PO Q6H PRN PRN Reason: severe pain over 7/10 Fluticasone/ (Vilanterol 100/25) 1 each INH DAILY [facility] Last Admin: 04/19/17 08:47 Dose: 1 each Discontinued Medications Sodium Chloride (Normal Saline) 1,000 mls @ 999 mls/hr IV STAT ONE Stop: 04/16/17 23:37 Last Admin: 04/16/17 22:49 Dose: 999 mls/hr Metronidazole 500 mg/ Premix 100 mls @ 100 mls/hr IV ONETIME ONE Stop: 04/17/17 01:31 Last Admin: 04/17/17 00:54 Dose: 100 mls/hr Piperacillin Sod/Tazobactam (Sod 3.375 gm/ Sodium Chloride) 50 mls @ 100 mls/ hr IV ONETIME ONE Stop: 04/17/17 01:01 Last Admin: 04/17/17 00:53 Dose: 100 mls/hr Sodium Chloride (Normal Saline) Confirm Administered Dose 50 mls @ as directed .ROUTE .STK-MED ONE Stop: 04/17/17 00:53 Last Admin: 04/17/17 00:53 Dose: Not Given Piperacillin Sod/Tazobactam (Sod 3.375 gm/ Sodium Chloride) 50 mls @ 100 mls/ hr IV Q6H [facility] Last Admin: 04/17/17 06:06 Dose: 100 mls/hr Magnesium Sulfate 4 gm/ Premix 100 mls @ 50 mls/hr IV ONETIME ONE Stop: 04/17/17 13:51 Last Admin: 04/17/17 12:24 Dose: 50 mls/hr Iopamidol (Isovue-370 (76%)) 100 ml IV .STK-MED ONE Stop: 04/17/17 07:27 *Q Meaningful Use (DIS) - VTE *Q VTE Criteria *Q: - Stroke *Q Stroke Criteria *Q: - AMI *Q AMI Criteria *Q:
--- NOTE | 2017-04-19 14:53 | PCM.SURGPN ---
- General Info Date of Service: 04/19/17 - Review of Systems General: Reports: No Symptoms Gastrointestinal: Reports: No Symptoms (kendra clear liquid diet) - Patient Data Vitals - Most Recent: Last Vital Signs Temp 98.3 F 04/19/17 12:00 Pulse 76 04/19/17 12:00 Resp 16 04/19/17 12:00 BP 141/72 H 04/19/17 12:00 Pulse Ox 94 L 04/19/17 12:00 Weight - Most Recent: 282 lb 3.067 oz I&O - Last 24 Hours: Intake & Output 04/18/17 04/19/17 04/19/17 22:59 06:59 14:59 Intake Total 1791 1668 300 Output Total 1250 720 Balance 541 948 300 Lab Results Last 24 Hrs: Laboratory Results - last 24 hr 04/19/17 04/19/17 Range/Units 04:32 04:32 WBC 8.56 (4.0-11.0) K/uL RBC 3.44 L (4.50-5.90) M/uL Hgb 10.5 L (13.0-17.0) g/dL Hct 33.0 L (38.0-50.0) % MCV 95.9 (80.0-98.0) fL MCH 30.5 (27.0-32.0) pg MCHC 31.8 (31.0-37.0) g/dL RDW Std Deviation 47.5 (28.0-62.0) fl RDW Coeff of Dean 14 (11.0-15.0) % Plt Count 345 (150-400) K/uL MPV 9.90 (7.40-12.00) fL Neut % (Auto) 72.5 (48.0-80.0) % Lymph % (Auto) 15.5 L (16.0-40.0) % [place] % (Auto) 9.6 (0.0-15.0) % Eos % (Auto) 2.0 (0.0-7.0) % Baso % (Auto) 0.4 (0.0-1.5) % Neut # (Auto) 6.2 H (1.4-5.7) K/uL Lymph # (Auto) 1.3 (0.6-2.4) K/uL [place] # (Auto) 0.8 (0.0-0.8) K/uL Eos # (Auto) 0.2 (0.0-0.7) K/uL Baso # (Auto) 0.0 (0.0-0.1) K/uL Nucleated RBC % 0.0 /100WBC Nucleated RBCs # 0 K/uL Sodium 140 (136-146) mmol/L Potassium 4.5 (3.5-5.1) mmol/L Chloride 107 (98-110) mmol/L Carbon Dioxide 26 (21-31) mmol/L BUN 8 (6.0-23.0) mg/dL Creatinine 0.7 (0.6-1.5) mg/dL Est Cr Clr Drug Dosing 104.89 mL/min Estimated GFR (MDRD) > 60.0 ml/min Glucose 105 (60-110) mg/dL Calcium 8.7 L (8.8-10.8) mg/dL [place] Results Last 24 Hrs: Microbiology 04/19/17 11:40 Clostridium difficile Toxin A&B (M) - Final Stool / Feces Negative for C.Diff Toxin/AG 04/17/17 01:00 Aerobic Blood Culture - Preliminary Blood - Venous - Lab Draw NO GROWTH AFTER 2 DAYS Anaerobic Blood Culture - Preliminary NO GROWTH AFTER 2 DAYS 04/17/17 00:50 Aerobic Blood Culture - Preliminary Blood - Venous NO GROWTH AFTER 2 DAYS Anaerobic Blood Culture - Preliminary NO GROWTH AFTER 2 DAYS Med Orders - Current: Current Medications Acetaminophen (Tylenol) 650 mg PO Q6H PRN PRN Reason: Pain Last Admin: 04/17/17 18:35 Dose: 650 mg Albuterol/Ipratropium (Duoneb 3.0-0.5 Mg/3 Ml) 3 ml NEB Q6HRRT PRN PRN Reason: Shortness of Breath Fluoxetine HCl (Prozac) 20 mg PO DAILY [facility] Last Admin: 04/19/17 08:42 Dose: 20 mg Heparin Sodium (Porcine) (Heparin Sodium) 5,000 units SUBCUT Q8H [facility] Last Admin: 04/19/17 11:35 Dose: 5,000 units Metronidazole 500 mg/ Premix 100 mls @ 100 mls/hr IV Q8H [facility] Last Admin: 04/19/17 08:44 Dose: 100 mls/hr Sodium Chloride (Normal Saline) 1,000 mls @ 75 mls/hr IV ASDIRECTED [facility] Last Admin: 04/19/17 00:13 Dose: 75 mls/hr Ciprofloxacin/Dextrose 400 mg/ (Premix) 200 mls @ 200 mls/hr IV Q12H [facility] Last Admin: 04/19/17 10:50 Dose: 200 mls/hr Lisinopril (Prinivil) 20 mg PO DAILY [facility] Last Admin: 04/19/17 08:42 Dose: 20 mg Montelukast Sodium (Singulair) 10 mg PO DAILY [facility] Last Admin: 04/19/17 08:42 Dose: 10 mg Ondansetron HCl (Zofran) 4 mg IVPUSH Q6H PRN PRN Reason: Nausea/Vomiting Last Admin: 04/19/17 12:53 Dose: 4 mg Oxycodone HCl (Oxycodone) 5 mg PO Q6H PRN PRN Reason: severe pain over 7/10 Fluticasone/ (Vilanterol 100/25) 1 each INH DAILY [facility] Last Admin: 04/19/17 08:47 Dose: 1 each Discontinued Medications Sodium Chloride (Normal Saline) 1,000 mls @ 999 mls/hr IV STAT ONE Stop: 04/16/17 23:37 Last Admin: 04/16/17 22:49 Dose: 999 mls/hr Metronidazole 500 mg/ Premix 100 mls @ 100 mls/hr IV ONETIME ONE Stop: 04/17/17 01:31 Last Admin: 04/17/17 00:54 Dose: 100 mls/hr Piperacillin Sod/Tazobactam (Sod 3.375 gm/ Sodium Chloride) 50 mls @ 100 mls/ hr IV ONETIME ONE Stop: 04/17/17 01:01 Last Admin: 04/17/17 00:53 Dose: 100 mls/hr Sodium Chloride (Normal Saline) Confirm Administered Dose 50 mls @ as directed .ROUTE .STK-MED ONE Stop: 04/17/17 00:53 Last Admin: 04/17/17 00:53 Dose: Not Given Piperacillin Sod/Tazobactam (Sod 3.375 gm/ Sodium Chloride) 50 mls @ 100 mls/ hr IV Q6H [facility] Last Admin: 04/17/17 06:06 Dose: 100 mls/hr Magnesium Sulfate 4 gm/ Premix 100 mls @ 50 mls/hr IV ONETIME ONE Stop: 04/17/17 13:51 Last Admin: 04/17/17 12:24 Dose: 50 mls/hr Iopamidol (Isovue-370 (76%)) 100 ml IV .STK-MED ONE Stop: 04/17/17 07:27 - Exam GI/Abdominal Exam: Normal Bowel Sounds, Soft, Non-Tender - Problem List Review Problem List Initiated/Reviewed/Updated: Yes - My Orders Last 24 Hours: Active Orders 24 hr Category Date Time Status Ready for Discharge [RC] PER UNIT ROUTINE Care 04/19/17 13:52 Active BASIC METABOLIC PANEL,BMP [CHEM] AM Lab 04/22/17 05:11 Ordered BASIC METABOLIC PANEL,BMP [CHEM] AM Lab 04/23/17 05:11 Ordered BASIC METABOLIC PANEL,BMP [CHEM] AM Lab 04/24/17 05:11 Ordered BASIC METABOLIC PANEL,BMP [CHEM] AM Lab 04/20/17 05:11 Ordered BASIC METABOLIC PANEL,BMP [CHEM] AM Lab 04/21/17 05:11 Ordered CBC WITH AUTO DIFF [HEME] AM Lab 04/22/17 05:11 Ordered CBC WITH AUTO DIFF [HEME] AM Lab 04/23/17 05:11 Ordered CBC WITH AUTO DIFF [HEME] AM Lab 04/24/17 05:11 Ordered CBC WITH AUTO DIFF [HEME] AM Lab 04/20/17 05:11 Ordered CBC WITH AUTO DIFF [HEME] AM Lab 04/21/17 05:11 Ordered Ondansetron [Zofran] Med 04/19/17 11:45 Active 4 mg IVPUSH Q6H PRN Medication Orders Acetaminophen (Tylenol) 650 mg PO Q6H PRN PRN Reason: Pain Last Admin: 04/17/17 18:35 Dose: 650 mg Albuterol/Ipratropium (Duoneb 3.0-0.5 Mg/3 Ml) 3 ml NEB Q6HRRT PRN PRN Reason: Shortness of Breath Fluoxetine HCl (Prozac) 20 mg PO DAILY [facility] Last Admin: 04/19/17 08:42 Dose: 20 mg Admin: 04/18/17 08:22 Dose: 20 mg Heparin Sodium (Porcine) (Heparin Sodium) 5,000 units SUBCUT Q8H [facility] Last Admin: 04/19/17 11:35 Dose: 5,000 units Admin: 04/19/17 03:49 Dose: 5,000 units Admin: 04/18/17 20:45 Dose: 5,000 units Admin: 04/18/17 13:27 Dose: 5,000 units Metronidazole 500 mg/ Premix 100 mls @ 100 mls/hr IV Q8H [facility] Last Admin: 04/19/17 08:44 Dose: 100 mls/hr Infusion: 04/19/17 01:13 Dose: 100 mls/hr Admin: 04/19/17 00:13 Dose: 100 mls/hr Infusion: 04/18/17 17:05 Dose: 100 mls/hr Admin: 04/18/17 16:05 Dose: 100 mls/hr Infusion: 04/18/17 09:18 Dose: 100 mls/hr Admin: 04/18/17 08:18 Dose: 100 mls/hr Infusion: 04/18/17 02:03 Dose: 100 mls/hr Admin: 04/18/17 01:03 Dose: 100 mls/hr Infusion: 04/17/17 17:34 Dose: 100 mls/hr Admin: 04/17/17 16:34 Dose: 100 mls/hr Infusion: 04/17/17 09:05 Dose: 100 mls/hr Admin: 04/17/17 08:05 Dose: 100 mls/hr Sodium Chloride (Normal Saline) 1,000 mls @ 75 mls/hr IV ASDIRECTED [facility] Last Admin: 04/19/17 00:13 Dose: 75 mls/hr Infusion: 04/18/17 20:07 Dose: 75 mls/hr Admin: 04/18/17 06:47 Dose: 75 mls/hr Infusion: 04/18/17 06:47 Dose: 75 mls/hr Admin: 04/17/17 18:32 Dose: 75 mls/hr Infusion: 04/17/17 15:16 Dose: 75 mls/hr Admin: 04/17/17 01:56 Dose: 75 mls/hr Ciprofloxacin/Dextrose 400 mg/ (Premix) 200 mls @ 200 mls/hr IV Q12H [facility] Last Admin: 04/19/17 10:50 Dose: 200 mls/hr Infusion: 04/18/17 23:55 Dose: 200 mls/hr Admin: 04/18/17 22:55 Dose: 200 mls/hr Infusion: 04/18/17 12:24 Dose: 200 mls/hr Admin: 04/18/17 11:24 Dose: 200 mls/hr Infusion: 04/17/17 23:23 Dose: 200 mls/hr Admin: 04/17/17 22:23 Dose: 200 mls/hr Infusion: 04/17/17 12:23 Dose: 200 mls/hr Admin: 04/17/17 11:23 Dose: 200 mls/hr Lisinopril (Prinivil) 20 mg PO DAILY [facility] Last Admin: 04/19/17 08:42 Dose: 20 mg Admin: 04/18/17 08:22 Dose: 20 mg Admin: 04/17/17 12:20 Dose: 20 mg Montelukast Sodium (Singulair) 10 mg PO DAILY [facility] Last Admin: 04/19/17 08:42 Dose: 10 mg Admin: 04/18/17 08:22 Dose: 10 mg Admin: 04/17/17 12:20 Dose: 10 mg Ondansetron HCl (Zofran) 4 mg IVPUSH Q6H PRN PRN Reason: Nausea/Vomiting Last Admin: 04/19/17 12:53 Dose: 4 mg Oxycodone HCl (Oxycodone) 5 mg PO Q6H PRN PRN Reason: severe pain over 7/10 Fluticasone/ (Vilanterol 100/25) 1 each INH DAILY [facility] Last Admin: 04/19/17 08:47 Dose: 1 each Admin: 04/18/17 09:09 Dose: 1 each - Assessment Assessment (Free Text/Narrative):: responded well to iv abx; would advance diet to general liquid diet for another 5 days, then advance as tolerated; ok to dc home on po abx levaquine/flagyle; fu w me 1- 2 wks; and possible at least 1 month from now; thanks for the consult and care of this pleasant patient - Plan Plan (Free Text/Narrative):: responded well to iv abx; would advance diet to general liquid diet for another 5 days, then advance as tolerated; ok to dc home on po abx levaquine/flagyle; fu w me 1- 2 wks; and possible at least 1 month from now; thanks for the consult and care of this pleasant patient
== END 2017-04-19 15:35 | disposition home or self-care (01) | DRG 392 ==
LOC: MW.ED 22:29 → MW.MS 04-17 00:37
PROVIDERS: ADMIT Family Medicine; ATTEND Family Medicine
DX: K57.92 Diverticulitis of intestine, part unspecified, without perforation or abscess without bleeding (principal); K57.32 Diverticulitis of large intestine without perforation or abscess without bleeding; J96.10 Chronic respiratory failure, unspecified whether with hypoxia or hypercapnia; I11.0 Hypertensive heart disease with heart failure; G47.30 Sleep apnea, unspecified; I50.9 Heart failure, unspecified; Z87.891 Personal history of nicotine dependence; G47.33 Obstructive sleep apnea (adult) (pediatric); F41.9 Anxiety disorder, unspecified; E83.42 Hypomagnesemia; J44.9 Chronic obstructive pulmonary disease, unspecified; M10.9 Gout, unspecified; E66.9 Obesity, unspecified; Z88.2 Allergy status to sulfonamides; Z99.81 Dependence on supplemental oxygen; Z79.899 Other long term (current) drug therapy
CPT/HCPCS: 36415; 74177; 80053; 81001; 82150; 83690; 85025; 96360; 99285; J7040; 80048; 83605; 83735; 87040; 87324; 99284; A9270-GY; J0744; J1644; J2405; J2543; J3475; J7050; Q9967

== ENCOUNTER 2017-04-23 19:24 | Emergency (ER) | payer MEDICARE, BC ==
[2017-04-23 19:38] VITALS: BP 131/49
--- NOTE | 2017-04-23 19:58 | EDM.PDOC ---
ED HPI GENERAL MEDICAL PROBLEM - General Chief Complaint: Genitourinary Problem Stated Complaint: BLOOD IN URINE Time Seen by Provider: 04/23/17 19:50 Source of Information: Reports: Patient History Limitations: Reports: No Limitations - History of Present Illness INITIAL COMMENTS - FREE TEXT/NARRATIVE: History of present illness: [61-year-old male comes in stating he is having hematuria. Patient indicates he is not having any pain he will she is concerned because of the blood in his urine. Patient denies any known history of prostate and or kidney stone issues.] Review of systems: As per history of present illness and below otherwise all systems reviewed and negative. Past medical history: As per history of present illness and as reviewed below otherwise noncontributory. Surgical history: As per history of present illness and as reviewed below otherwise noncontributory. Social history: No reported history of drug or alcohol abuse. Family history: As per history of present illness and as reviewed below otherwise noncontributory. Physical exam: HEENT: Atraumatic, normocephalic, pupils reactive, negative for conjunctival pallor or scleral icterus, mucous membranes moist, throat clear, neck supple, nontender, trachea midline. Lungs: Clear to auscultation, breath sounds equal bilaterally, chest nontender. Heart: S1S2, regular, negative for clicks, rubs, or JVD. Abdomen: Soft, nondistended, nontender. Negative for masses or hepatosplenomegaly. Negative for costovertebral tenderness. Pelvis: Stable nontender. Genitourinary: Deferred. Rectal: Deferred. Extremities: Atraumatic, negative for cords or calf pain. Neurovascular unremarkable. Neuro: Awake, alert, oriented. Cranial nerves II through XII unremarkable. Cerebellum unremarkable. Motor and sensory unremarkable throughout. Exam nonfocal. Global assessment is benign save the subjective complaint is certain the history of present illness after further dialogue with the patient indicated that there was no actual blood in his urine it was just very orange and had frightened him. Patient indicated he was recently seen for diverticulitis and the doctor cautioned him to be watching for drainage. Diagnostics: [CBC, CMP, UA] Therapeutics: [] Impression: [Worried well Dehydration] Plan: [Increase fluid intake follow-up with Dr. Colmenares as scheduled] Definitive disposition and diagnosis as appropriate pending reevaluation and review of above. abdomen Pain Score (Numeric/FACES): 3 - Related Data Allergies Allergy/AdvReac Type Severity Reaction Status Date / Time Sulfa (Sulfonamide Allergy Hives Verified 04/23/17 19:34 Antibiotics) Home Meds: Home Meds Albuterol Sulfate 1 inh NEB QID PRN 04/18/15 [History] Allopurinol [Zyloprim] 300 mg PO DAILY 04/18/15 [History] FLUoxetine [PROzac] 20 mg PO DAILY 04/18/15 [History] LORazepam 1 mg PO ASDIRECTED PRN 04/18/15 [History] Furosemide 40 mg PO BID 02/12/17 [History] Lisinopril 20 mg PO DAILY 02/12/17 [History] Fluticasone/Vilanterol [Breo Ellipta 200-25 Mcg INH] 1 puff INH DAILY 03/04/17 [ History] Montelukast [Singulair] 10 mg PO DAILY 03/04/17 [History] Potassium Chloride 10 meq PO BID 03/04/17 [History] Tamsulosin [Flomax] 0.4 mg PO DAILY 03/04/17 [History] Umeclidinium [place] [Incruse Ellipta*] 62.5 mg INH DAILY 03/04/17 [History] Polyethylene Glycol 3350 [MiraLAX] 17 gm PO ASDIRECTED 03/05/17 [History] diphenhydrAMINE [Benadryl] 50 mg PO BEDTIME 03/05/17 [History] Ondansetron [Zofran ODT] 4 mg PO Q8H PRN #5 tab.dis 03/08/17 [Rx] Levofloxacin 750 mg PO DAILY 14 Days #14 tablet 04/19/17 [Rx] metroNIDAZOLE [Flagyl] 500 mg PO QID 14 Days #56 tablet 04/19/17 [Rx] Past Medical History HEENT History: Reports: Cataract, Other (See Below) Other HEENT History: 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, Vertigo Cardiovascular History: Reports: Heart Failure, Hypertension, SOB on Exertion Respiratory History: Reports: COPD, Sleep Apnea Other Respiratory History: cpap and 2 L home o2 Gastrointestinal History: Reports: None Musculoskeletal History: Reports: Gout Neurological History: Reports: None Psychiatric History: Reports: Anxiety Endocrine/Metabolic History: Reports: Obesity/BMI 30+ - Infectious Disease History Infectious Disease History: Reports: Chicken Pox, Measles, Mumps - Past Surgical History Cardiovascular Surgical History: Reports: None Respiratory Surgical History: Reports: None GI Surgical History: Reports: Hernia, Abdominal Musculoskeletal Surgical History: Reports: Knee Replacement Social & Family History - Family History Family Medical History: Noncontributory HEENT: Reports: None Cardiac: Reports: Hypertension Respiratory: Reports: Asthma, COPD GI: Reports: None : Reports: None OBGYN: Reports: None Musculoskeletal: Reports: None Neurological: Reports: None Psychiatric: Reports: None Endocrine/Metabolic: Reports: Diabetes, type II Hematologic: Reports: None Immunologic: Reports: None Dermatologic: Reports: None Oncologic: Reports: Other (See Below) Other Oncologic Family History: sister had cancer but he wouldn't know which type - Tobacco Use Smoking Status *Q: Former Smoker Years of Tobacco use: 48 Used Tobacco, but Quit: Yes Month Tobacco Last Used: 2010 Second Hand Smoke Exposure: No - Caffeine Use Caffeine Use: Reports: Coffee Caffeine Use Comment: takes 1 pot - Recreational Drug Use Recreational Drug Use: No ED ROS GENERAL - Review of Systems Review Of Systems: See Below (See history of present illness) ED EXAM, GENERAL - Physical Exam Exam: See Below (See history of present illness) Course - Vital Signs Last Recorded V/S: Last Vital Signs Temp 36.3 C 04/23/17 19:34 Pulse 119 H 04/23/17 19:34 Resp 20 04/23/17 19:34 BP 131/49 L 04/23/17 19:34 Pulse Ox 94 L 04/23/17 19:34 - Orders/Labs/Meds Labs: Laboratory Tests 04/23/17 04/23/17 04/23/17 Range/Units 20:18 20:18 21:00 WBC 9.52 (4.0-11.0) K/uL RBC 3.56 L (4.50-5.90) M/uL Hgb 11.1 L (13.0-17.0) g/dL Hct 34.0 L (38.0-50.0) % MCV 95.5 (80.0-98.0) fL MCH 31.2 (27.0-32.0) pg MCHC 32.6 (31.0-37.0) g/dL RDW Std Deviation 50.6 (28.0-62.0) fl RDW Coeff of Dean 15 (11.0-15.0) % Plt Count 328 (150-400) K/uL MPV 9.80 (7.40-12.00) fL Neut % (Auto) 75.0 (48.0-80.0) % Lymph % (Auto) 14.1 L (16.0-40.0) % [place] % (Auto) 9.2 (0.0-15.0) % Eos % (Auto) 1.3 (0.0-7.0) % Baso % (Auto) 0.4 (0.0-1.5) % Neut # (Auto) 7.1 H (1.4-5.7) K/uL Lymph # (Auto) 1.3 (0.6-2.4) K/uL [place] # (Auto) 0.9 H (0.0-0.8) K/uL Eos # (Auto) 0.1 (0.0-0.7) K/uL Baso # (Auto) 0.0 (0.0-0.1) K/uL Nucleated RBC % 0.0 /100WBC Nucleated RBCs # 0 K/uL Sodium 140 (136-146) mmol/L Potassium 4.3 (3.5-5.1) mmol/L Chloride 103 (98-110) mmol/L Carbon Dioxide 24 (21-31) mmol/L BUN 10 (6.0-23.0) mg/dL Creatinine 1.1 (0.6-1.5) mg/dL Est Cr Clr Drug Dosing 66.50 mL/min Estimated GFR (MDRD) > 60.0 ml/min Glucose 93 (60-110) mg/dL Calcium 9.0 (8.8-10.8) mg/dL Total Bilirubin 0.3 (0.1-1.5) mg/dL AST 42 H (5-40) IU/L ALT 34 (8-54) IU/L Alkaline Phosphatase 69 (40-150) Total Protein 6.1 (6.0-8.0) g/dL Albumin 3.3 L (3.4-4.8) g/dL Globulin 2.8 (2.0-3.5) g/dL Albumin/Globulin Ratio 1.2 L (1.3-2.8) Urine Color YELLOW Urine Appearance CLEAR Urine pH 5.5 (5.0-8.0) Ur Specific May 1.020 (1.001-1.035) Urine Protein NEGATIVE (NEGATIVE) mg/dL Urine Glucose (UA) NEGATIVE (NEGATIVE) mg/dL Urine Ketones TRACE H (NEGATIVE) mg/dL Urine Occult Blood NEGATIVE (NEGATIVE) Urine Nitrite POSITIVE H (NEGATIVE) Urine Bilirubin SMALL H (NEGATIVE) Urine Ictotest NEGATIVE Urine Urobilinogen 0.2 (<2.0) EU/dL Ur Leukocyte Esterase TRACE (NEGATIVE) Urine RBC 0-1 (0-2/HPF) Urine WBC 0-2 (0-5/HPF) Ur Epithelial Cells RARE (NONE-FEW) Urine Bacteria FEW (NEGATIVE) Meds: Medications Discontinued Medications Generic Name Dose Route Start Last Admin Trade Name Freq PRN Reason Stop Dose Admin Sodium Chloride 1,000 mls @ 999 mls/hr 04/23/17 19:59 04/23/17 20:09 Normal Saline IV 04/23/17 20:59 999 mls/hr STAT ONE Administration Departure - Departure Time of Disposition: 21:57 Disposition: Home, Self-Care 01 Condition: Good Clinical Impression: Dehydration - Discharge Information Referrals: Bryn Colmenares MD [Primary Care Provider] - Forms: ED Department Discharge Additional Instructions: The following information is given to patients seen in the emergency department who are being discharged to home. This information is to outline your options for follow-up care. We provide all patients seen in our emergency department with a follow-up referral. The need for follow-up, as well as the timing and circumstances, are variable depending upon the specifics of your emergency department visit. If you don't have a primary care physician on staff, we will provide you with a referral. We always advise you to contact your personal physician following an emergency department visit to inform them of the circumstance of the visit and for follow-up with them and/or the need for any referrals to a consulting specialist. The emergency department will also refer you to a specialist when appropriate. This referral assures that you have the opportunity for follow-up care with a specialist. All of these measure are taken in an effort to provide you with optimal care, which includes your follow-up. Under all circumstances we always encourage you to contact your private physician who remains a resource for coordinating your care. When calling for follow-up care, please make the office aware that this follow-up is from your recent emergency room visit. If for any reason you are refused follow-up, please contact the [facility] Emergency Department at and asked to speak to the emergency department charge nurse. Follow-up with Dr. Colmenares as discussed Increase her fluid intake as discussed Return to ED as needed as discussed
[2017-04-23] MEDS ORDERED: Sodium Chloride 0.9% 1,000 ML IV ONE (19:59)
[2017-04-23 20:54] LABS: CHLORIDE,CL 103 mmol/L (98-110); SODIUM,NA 140 mmol/L (136-146)
== END 2017-04-23 22:30 | disposition home or self-care (01) ==
LOC: MW.ED 19:24
DX: E86.0 Dehydration (principal); I11.0 Hypertensive heart disease with heart failure; I50.9 Heart failure, unspecified; Z88.2 Allergy status to sulfonamides; Z79.899 Other long term (current) drug therapy; Z87.891 Personal history of nicotine dependence; F41.9 Anxiety disorder, unspecified
CPT/HCPCS: 36415; 80053; 81001; 85025; 96360; 99283; J7040

== ENCOUNTER 2017-05-23 10:39 | Emergency (ER) | payer MEDICARE, BC ==
[2017-05-23] MEDS ORDERED: Sodium Chloride 0.9% 2.5 ML Syringe FLUSH PRN (11:01)
[2017-05-23] MEDS ORDERED: Sodium Chloride 0.9% 10 ML Syringe FLUSH PRN (11:01)
[2017-05-23] MEDS ORDERED: Albuterol/Ipratropium 3.0-0.5 MG/3 ML Neb Soln NEB ONE (11:01)
--- NOTE | 2017-05-23 11:01 | EDM.PDOC ---
ED HPI GENERAL MEDICAL PROBLEM - General Chief Complaint: Respiratory Problem Stated Complaint: COPD(SHORTNESS OF BREATH) Time Seen by Provider: 05/23/17 10:56 Source of Information: Reports: Patient, Old Records History Limitations: Reports: No Limitations - History of Present Illness INITIAL COMMENTS - FREE TEXT/NARRATIVE: HISTORY AND PHYSICAL: []61-year-old male presenting with increased shortness of breath he has had COPD and History of Present Illness: []Was seen at [facility] in clinic on Sunday May 21, 2017 and was started on Levaquin at that time (concern was expressed for possible pneumonia right side) patient has tried to obtain results of the chest x-ray and lab work and has not been able to get this information. Is not feeling any better with the Levaquin and came to the emergency department. Mild chills Review of Systems: As per history of present illness and below otherwise all systems reviewed and negative. Denies headaches denies difficulty chewing or swallowing No difficulty with passing urine or bowel habit No difficulty with balance and walking [place] a sulfa allergy Past medical history: As per history of present illness and as reviewed below otherwise noncontributory. Surgical history: As per history of present illness and as reviewed below otherwise noncontributory. Social history: No reported history of drug or alcohol abuse. Family history: As per history of present illness and as reviewed below otherwise noncontributory. Family history significant for diabetes sibling with cancer hypertension personal health history is asthma pneumonia sleep apnea COPD Physical exam: Alert and oriented gentleman speaking in full sentences mild shortness of breath is noted. Skin is warm and dry HEENT: Atraumatic, normocehpalic, pupils reactive, negative for conjunctival pallor or scleral icterus, mucous membranes moist, throat clear, neck supple, nontender, trachea midline. Lungs: Wheezing on auscultation, breath sounds equal bilaterally, chest non tender. Heart: S1S2, regular, negative for clicks, rubs, or JVD. Abdomen: Soft, nondistended, nontender. Negative for masses or hepatossplenmegaly. Negative for costovertebral tenderness. Pelvis: Stable nontender. Genitourinary: Deferred. Rectal: Deferred Extremities: Atraumatic, negative for cords or calf pain. Neurovascular unremarkable. Neuro: Awake, alert, oriented. Cranial nerves II through XII unremarkable. Cerebellum unremarkable. Motor and sensory unremarkable throughout. Exam nonfocal. Discussed with the patient he does not have influenza or pneumonia Exacerbation COPD Diagnostics: []CBC CMP a chest x-ray influenza rapid strep Therapeutics: [] Solu Medrol IV Impression: [COPD exacerbation] Plan: []Discharged to home Follow up with your primary care provider next week Definitive disposition and diagnosis as appropriate pending reevaluation and review of above. Onset: Gradual Duration: Day(s):, Heavy Location: Reports: Chest Chest Pain Score (Numeric/FACES): 6 - Related Data Allergies Allergy/AdvReac Type Severity Reaction Status Date / Time Sulfa (Sulfonamide Allergy Hives Verified 05/23/17 11:03 Antibiotics) Home Meds: Home Meds Allopurinol [Zyloprim] 300 mg PO DAILY 04/18/15 [History] FLUoxetine [PROzac] 20 mg PO DAILY 04/18/15 [History] LORazepam 1 mg PO ASDIRECTED PRN 04/18/15 [History] Furosemide 40 mg PO BID 02/12/17 [History] Lisinopril 20 mg PO DAILY 02/12/17 [History] Fluticasone/Vilanterol [Breo Ellipta 200-25 Mcg INH] 1 puff INH DAILY 03/04/17 [ History] Montelukast [Singulair] 10 mg PO BEDTIME 03/04/17 [History] Umeclidinium [place] [Incruse Ellipta*] 62.5 mg INH DAILY 03/04/17 [History] Albuterol [Proair HFA] 2 puff INH ASDIRECTED PRN 05/23/17 [History] Omeprazole 20 mg PO DAILY 05/23/17 [History] Potassium Chloride 10 meq PO BID 05/23/17 [History] Tamsulosin HCl [Flomax] 0.4 mg PO BEDTIME 05/23/17 [History] Past Medical History HEENT History: Reports: Cataract, Other (See Below) Other HEENT History: 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, Vertigo, wears glasses Cardiovascular History: Reports: Heart Failure, Hypertension, SOB on Exertion Respiratory History: Reports: COPD, Sleep Apnea Other Respiratory History: cpap with 2 L/02 Gastrointestinal History: Reports: GERD Other Gastrointestinal History: diverticulitis Genitourinary History: Reports: BPH Musculoskeletal History: Reports: Gout Neurological History: Reports: Vertigo Psychiatric History: Reports: Anxiety, Depression Endocrine/Metabolic History: Reports: Obesity/BMI 30+ Hematologic History: Reports: None Immunologic History: Reports: None Oncologic (Cancer) History: Reports: None Dermatologic History: Reports: None - Infectious Disease History Infectious Disease History: Reports: Chicken Pox, Measles, Mumps - Past Surgical History Head Surgeries/Procedures: Reports: None HEENT Surgical History: Reports: Cataract Surgery Other HEENT Surgeries/Procedures: deaf in right ear, stent in neck for right ear - menieres Cardiovascular Surgical History: Reports: None Respiratory Surgical History: Reports: None GI Surgical History: Reports: Hernia, Abdominal, Hernia, Inguinal Other GI Surgeries/Procedures: hernia x3 Endocrine Surgical History: Reports: None Neurological Surgical History: Reports: Other (See Below) Other Neurological Surgeries/Procedures: neck fusion Musculoskeletal Surgical History: Reports: Knee Replacement Other Musculoskeletal Surgeries/Procedures:: right total knee Social & Family History - Family History Family Medical History: Noncontributory HEENT: Reports: None Cardiac: Reports: Hypertension Respiratory: Reports: Asthma, COPD GI: Reports: None : Reports: None OBGYN: Reports: None Musculoskeletal: Reports: None Neurological: Reports: None Psychiatric: Reports: None Endocrine/Metabolic: Reports: Diabetes, type II Hematologic: Reports: None Immunologic: Reports: None Dermatologic: Reports: None Oncologic: Reports: Other (See Below) Other Oncologic Family History: sister had cancer but he wouldn't know which type - Tobacco Use Smoking Status *Q: Former Smoker Years of Tobacco use: 48 Used Tobacco, but Quit: Yes Month Tobacco Last Used: 2010 Second Hand Smoke Exposure: No - Caffeine Use Caffeine Use: Reports: Coffee Caffeine Use Comment: takes 1 pot - Recreational Drug Use Recreational Drug Use: No ED ROS GENERAL - Review of Systems Review Of Systems: ROS reveals no pertinent complaints other than HPI. ED EXAM, GENERAL - Physical Exam Exam: See Below (See dictation) EKG INTERPRETATION Rhythm: NSR Comparison: No Change Course - Vital Signs Last Recorded V/S: Last Vital Signs Temp 36.6 C 05/23/17 10:55 Pulse 106 H 05/23/17 10:55 Resp 24 H 05/23/17 10:55 BP 137/70 05/23/17 10:55 Pulse Ox - Orders/Labs/Meds Orders: Active Orders 24 hr Category Date Time Status EKG Documentation Completion [RC] STAT Care 05/23/17 11:01 Active RT Aerosol Therapy [RC] ASDIRECTED Care 05/23/17 11:01 Active CULTURE STREP A CONFIRMATION [] Stat Lab 05/23/17 12:03 Results STREP SCRN A RAPID W CULT CONF [] Stat Lab 05/23/17 12:03 Results Sodium Chloride 0.9% [Saline Flush] Med 05/23/17 11:01 Active 10 ml FLUSH ASDIRECTED PRN Sodium Chloride 0.9% [Saline Flush] Med 05/23/17 11:01 Active 2.5 ml FLUSH ASDIRECTED PRN Saline Lock Insert [OM.PC] Stat Oth 05/23/17 11:01 Ordered Medication Orders Sodium Chloride (Saline Flush) 10 ml FLUSH ASDIRECTED PRN PRN Reason: Keep Vein Open Sodium Chloride (Saline Flush) 2.5 ml FLUSH ASDIRECTED PRN PRN Reason: Keep Vein Open Labs: Laboratory Tests 05/23/17 05/23/17 Range/Units 11:14 11:14 WBC 6.26 (4.0-11.0) K/uL RBC 3.88 L (4.50-5.90) M/uL Hgb 12.2 L (13.0-17.0) g/dL Hct 38.2 (38.0-50.0) % MCV 98.5 H (80.0-98.0) fL MCH 31.4 (27.0-32.0) pg MCHC 31.9 (31.0-37.0) g/dL RDW Std Deviation 53.6 (28.0-62.0) fl RDW Coeff of Dean 15 (11.0-15.0) % Plt Count 240 (150-400) K/uL MPV 10.10 (7.40-12.00) fL Neut % (Auto) 64.2 (48.0-80.0) % Lymph % (Auto) 25.4 (16.0-40.0) % [place] % (Auto) 8.3 (0.0-15.0) % Eos % (Auto) 1.8 (0.0-7.0) % Baso % (Auto) 0.3 (0.0-1.5) % Neut # (Auto) 4.0 (1.4-5.7) K/uL Lymph # (Auto) 1.6 (0.6-2.4) K/uL [place] # (Auto) 0.5 (0.0-0.8) K/uL Eos # (Auto) 0.1 (0.0-0.7) K/uL Baso # (Auto) 0.0 (0.0-0.1) K/uL Nucleated RBC % 0.0 /100WBC Nucleated RBCs # 0 K/uL Sodium 143 (136-146) mmol/L Potassium 3.7 (3.5-5.1) mmol/L Chloride 109 (98-110) mmol/L Carbon Dioxide 26 (21-31) mmol/L BUN 20 (6.0-23.0) mg/dL Creatinine 0.8 (0.6-1.5) mg/dL Est Cr Clr Drug Dosing 91.44 mL/min Estimated GFR (MDRD) > 60.0 ml/min Glucose 91 (60-110) mg/dL Calcium 8.8 (8.8-10.8) mg/dL Total Bilirubin 0.3 (0.1-1.5) mg/dL AST 32 (5-40) IU/L ALT 39 (8-54) IU/L Alkaline Phosphatase 74 (40-150) Total Protein 6.0 (6.0-8.0) g/dL Albumin 3.7 (3.4-4.8) g/dL Globulin 2.3 (2.0-3.5) g/dL Albumin/Globulin Ratio 1.6 (1.3-2.8) Meds: Medications Generic Name Dose Route Start Last Admin Trade Name Freq PRN Reason Stop Dose Admin Sodium Chloride 10 ml 05/23/17 11:01 Saline Flush FLUSH ASDIRECTED PRN Keep Vein Open Sodium Chloride 2.5 ml 05/23/17 11:01 Saline Flush FLUSH ASDIRECTED PRN Keep Vein Open Discontinued Medications Generic Name Dose Route Start Last Admin Trade Name Freq PRN Reason Stop Dose Admin Albuterol/Ipratropium 3 ml 05/23/17 11:01 05/23/17 11:10 Duoneb 3.0-0.5 Mg/3 Ml NEB 05/23/17 11:02 3 ml ONETIME ONE Administration Methylprednisolone Sodium Succinate 125 mg 05/23/17 12:06 Solu-Medrol IVPUSH 05/23/17 12:07 ONETIME ONE Methylprednisolone Sodium Succinate 125 mg 05/23/17 12:08 Solu-Medrol IM 05/23/17 12:09 ONETIME ONE Departure - Departure Time of Disposition: 12:50 Disposition: Home, Self-Care 01 Condition: Good Clinical Impression: COPD exacerbation - Discharge Information Instructions: Shortness of Breath, [id number] Referrals: Bryn Colmenares MD [Primary Care Provider] - Forms: ED Department Discharge Additional Instructions: The following information is given to patients seen in the emergency department who are being discharged to home. This information is to outline your options for follow-up care. We provide all patients seen in our emergency department with a follow-up referral. The need for follow-up, as well as the timing and circumstances, are variable depending upon the specifics of your emergency department visit. If you don't have a primary care physician on staff, we will provide you with a referral. We always advise you to contact your personal physician following an emergency department visit to inform them of the circumstance of the visit and for follow-up with them and/or the need for any referrals to a consulting specialist. The emergency department will also refer you to a specialist when appropriate. This referral assures that you have the opportunity for followup care with a specialist. All of these measure are taken in an effort to provide you with optimal care, which includes your followup. Under all circumstances we always encourage you to contact your private physician who remains a resource for coordinating your care. When calling for followup care, please make the office aware that this follow-up is from your recent emergency room visit. If for any reason you are refused follow-up, please contact the [facility] emergency department at and asked to speak to the emergency department charge nurse. You do not to have influenza No pneumonia was present on x-ray You have an exacerbation of your COPD Follow-up with your primary care provider next week call for an appointment when you get home [address] [place] [id number] - My Orders Last 24 Hours: My Active Orders 05/23/17 11:01 EKG Documentation Completion [RC] STAT RT Aerosol Therapy [RC] ASDIRECTED Sodium Chloride 0.9% [Saline Flush] 10 ml FLUSH ASDIRECTED PRN Sodium Chloride 0.9% [Saline Flush] 2.5 ml FLUSH ASDIRECTED PRN Saline Lock Insert [OM.PC] Stat 05/23/17 12:03 CULTURE STREP A CONFIRMATION [RM] Stat STREP SCRN A RAPID W CULT CONF [RM] Stat - Assessment/Plan Last 24 Hours: My Active Orders 05/23/17 11:01 EKG Documentation Completion [RC] STAT RT Aerosol Therapy [RC] ASDIRECTED Sodium Chloride 0.9% [Saline Flush] 10 ml FLUSH ASDIRECTED PRN Sodium Chloride 0.9% [Saline Flush] 2.5 ml FLUSH ASDIRECTED PRN Saline Lock Insert [OM.PC] Stat 05/23/17 12:03 CULTURE STREP A CONFIRMATION [RM] Stat STREP SCRN A RAPID W CULT CONF [RM] Stat
--- NOTE | 2017-05-23 11:48 | CR ---
PA and lateral chest Clinical history: Chest pain and shortness of breath Comparison: Prior chest x-ray March 22, 2017. Findings: Costophrenic angles are sharp. The cardiac mediastinum is normal. Lungs are clear of infilt rates. There is no abnormal finding since prior study. Impression: Normal chest
[2017-05-23 11:55] LABS: CHLORIDE,CL 109 mmol/L (98-110); SODIUM,NA 143 mmol/L (136-146)
[2017-05-23] MEDS ORDERED: methylPREDNISolone Sodium Succinate 125 MG/2 ML SDV IVPUSH ONE (12:06)
[2017-05-23] MEDS ORDERED: methylPREDNISolone Sodium Succinate 125 MG/2 ML SDV IM ONE (12:08)
[2017-05-23 19:30] VITALS: BP 150/88
== END 2017-05-23 13:12 | disposition home or self-care (01) ==
LOC: MW.ED 10:39
DX: J44.1 Chronic obstructive pulmonary disease with (acute) exacerbation (principal); I11.0 Hypertensive heart disease with heart failure; I50.9 Heart failure, unspecified; Z79.899 Other long term (current) drug therapy; Z88.2 Allergy status to sulfonamides
CPT/HCPCS: 36415; 71046; 80053; 85025; 87081; 87804; 87880; 93005; 94640; 96372; 99285; J2930; 99284

== ENCOUNTER 2017-06-03 09:50 | Inpatient (IN) | payer MEDICARE, BC ==
[2017-06-03] MEDS ORDERED: Sodium Chloride 0.9% 2.5 ML Syringe FLUSH PRN (21:42)
[2017-06-03] MEDS ORDERED: Sodium Chloride 0.9% 10 ML Syringe FLUSH PRN (21:42)
[2017-06-03] MEDS ORDERED: Albuterol/Ipratropium 3.0-0.5 MG/3 ML Neb Soln NEB ONE (21:42)
[2017-06-03] MEDS ORDERED: methylPREDNISolone Sodium Succinate 125 MG/2 ML SDV IVPUSH ONE (21:42)
--- NOTE | 2017-06-03 21:43 | EDM.PDOC ---
ED HPI GENERAL MEDICAL PROBLEM - General Chief Complaint: Respiratory Problem Stated Complaint: TROUBLE BREATHING Time Seen by Provider: 06/03/17 21:33 - History of Present Illness INITIAL COMMENTS - FREE TEXT/NARRATIVE: HISTORY AND PHYSICAL: History of present illness: Patient is a 61-year-old male who is well-known to the ER for multiple ER visits for COPD exacerbation who presents with same today. The patient was seen here on May 23 and had shortness of breath and wheezing and was treated with a workup duo neb and Solu-Medrol. Patient is normally O2 dependent on 2 L chronically. He also has a history of hypertension and he follows with Bryn [facility] at [facility]. The patient had been placed on Levaquin preceding that ER visit by an urgent care and he says he finished the Levaquin and he did follow-up with Dr. Colmenares in the clinic. He said after the steroid shot he got here he was feeling much improved for almost 5 days but then the symptoms returned and Dr. Colmenares put him on prednisone 40 mg a day and he has taken 5 days of that and does not feel improved. He uses his maintenance inhalers on a daily basis and does nebulizer treatments 4 times a day. He says he is only had congestive heart failure once and does follow with Dr. Lincoln in our clinic but this does not feel like that he has no leg pain or swelling. He says his chest feels tight because of his breathing and he has a loose cough productive of phlegm. Has had no abdominal pain vomiting or diarrhea and he is eating and drinking. Patient says he does not have a fever at home and he has been tested for influenza previously and was negative. Patient has a 48 year history of smoking but quit 6 years ago. Patient tells me that with his shortness of breath he was not changing his oxygen at home as his provider told him not to do that. Patient says he was afraid to sleep tonight because of the coughing and shortness of breath which is why he came in. His shortness of breath and coughing has been a progressive event not sudden. Review of systems: As per history of present illness and below otherwise all systems reviewed and negative. Past medical history: As per history of present illness and as reviewed below otherwise noncontributory. Surgical history: As per history of present illness and as reviewed below otherwise noncontributory. Social history: No reported history of drug or alcohol abuse. Family history: As per history of present illness and as reviewed below otherwise noncontributory. Physical exam: General: Well-developed well-nourished overweight male who is nontoxic and breathless with any activity in the ED. His vital signs were noted by me. He has a very harsh loose cough on my evaluation HEENT: Atraumatic, normocephalic, pupils reactive, negative for conjunctival pallor or scleral icterus, mucous membranes moist, throat clear, neck supple, nontender, trachea midline. Lungs: Diminished breath sounds throughout all lung hendricks with forced expiratory wheezing and some abdominal work of breathing, breath sounds equal bilaterally, chest nontender. Heart: S1S2, regular rhythm but tachycardic rate of my evaluation, negative for clicks, rubs, or JVD. Abdomen: Soft, nondistended, nontender. Negative for masses or hepatosplenomegaly. Negative for costovertebral tenderness. Pelvis: Stable nontender. Genitourinary: Deferred. Rectal: Deferred. Extremities: Atraumatic, negative for cords or calf pain. Neurovascular unremarkable. Trace pedal edema but no leg asymmetry Neuro: Awake, alert, oriented. Cranial nerves II through XII unremarkable. Cerebellum unremarkable. Motor and sensory unremarkable throughout. Exam nonfocal. Skin: Turgor is normal there is no diaphoresis or overt rashes or lesions Diagnostics: EKG CBC CMP troponin BNP influenza lactic acid chest x-ray Therapeutics: IV O2 monitor IV fluids duo neb Solu-Medrol Patient says he is feeling much better and his heart rate has improved to 105. He still is wheezing and having a harsh cough so I will discuss this case with the hospitalist as the patient is doing everything he is being told by his providers but he still is feeling at home with prednisone and nebs and oxygen. With any activity here he gets very breathless and it triggers a spastic loose cough. 2310: Case discussed with Dr. Diaz who accepts the patient for observation admission. Patient is comfortable with this care plan. Impression: COPD exacerbation Definitive disposition and diagnosis as appropriate pending reevaluation and review of above. chest Pain Score (Numeric/FACES): 7 - Related Data Allergies Allergy/AdvReac Type Severity Reaction Status Date / Time Sulfa (Sulfonamide Allergy Hives Verified 06/03/17 21:37 Antibiotics) Home Meds: Home Meds Allopurinol [Zyloprim] 300 mg PO DAILY 04/18/15 [History] FLUoxetine [PROzac] 20 mg PO DAILY 04/18/15 [History] LORazepam 1 mg PO TID PRN 04/18/15 [History] Furosemide 40 mg PO BID 02/12/17 [History] Lisinopril 20 mg PO DAILY 02/12/17 [History] Fluticasone/Vilanterol [Breo Ellipta 200-25 Mcg INH] 1 puff INH DAILY 03/04/17 [ History] Montelukast [Singulair] 10 mg PO BEDTIME 03/04/17 [History] Umeclidinium [place] [Incruse Ellipta*] 1 puff INH DAILY 03/04/17 [History] Albuterol [Proair HFA] 2 puff INH ASDIRECTED PRN 05/23/17 [History] Omeprazole 20 mg PO DAILY 05/23/17 [History] Potassium Chloride 10 meq PO BID 05/23/17 [History] Tamsulosin HCl [Flomax] 0.4 mg PO BEDTIME 05/23/17 [History] Albuterol Sulfate 2.5 mg INH Q4HR PRN 06/03/17 [History] Naproxen 500 mg PO BID 06/03/17 [History] Polyethylene Glycol 3350 [MiraLAX] 17 gm PO DAILY 06/03/17 [History] diphenhydrAMINE [Benadryl] 50 mg PO BEDTIME 06/03/17 [History] Past Medical History HEENT History: Reports: Cataract, Other (See Below) Other HEENT History: 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, Vertigo, wears glasses Cardiovascular History: Reports: Heart Failure, Hypertension, SOB on Exertion Respiratory History: Reports: COPD, Sleep Apnea Other Respiratory History: cpap with 2 L/02 Gastrointestinal History: Reports: GERD Other Gastrointestinal History: diverticulitis Genitourinary History: Reports: BPH Musculoskeletal History: Reports: Gout Neurological History: Reports: Vertigo Psychiatric History: Reports: Anxiety, Depression Endocrine/Metabolic History: Reports: Obesity/BMI 30+ Hematologic History: Reports: None Immunologic History: Reports: None Oncologic (Cancer) History: Reports: None Dermatologic History: Reports: None - Infectious Disease History Infectious Disease History: Reports: Chicken Pox, Measles, Mumps - Past Surgical History Head Surgeries/Procedures: Reports: None HEENT Surgical History: Reports: Cataract Surgery Other HEENT Surgeries/Procedures: deaf in right ear, stent in neck for right ear - menieres Cardiovascular Surgical History: Reports: None Respiratory Surgical History: Reports: None GI Surgical History: Reports: Hernia, Abdominal, Hernia, Inguinal Other GI Surgeries/Procedures: hernia x3 Male Surgical History: Reports: None Endocrine Surgical History: Reports: None Neurological Surgical History: Reports: Other (See Below) Other Neurological Surgeries/Procedures: neck fusion Musculoskeletal Surgical History: Reports: Knee Replacement Other Musculoskeletal Surgeries/Procedures:: right total knee Social & Family History - Family History Family Medical History: Noncontributory HEENT: Reports: None Cardiac: Reports: Hypertension Respiratory: Reports: Asthma, COPD GI: Reports: None : Reports: None OBGYN: Reports: None Musculoskeletal: Reports: None Neurological: Reports: None Psychiatric: Reports: None Endocrine/Metabolic: Reports: Diabetes, type II Hematologic: Reports: None Immunologic: Reports: None Dermatologic: Reports: None Oncologic: Reports: Other (See Below) Other Oncologic Family History: sister had cancer but he wouldn't know which type - Tobacco Use Smoking Status *Q: Former Smoker Years of Tobacco use: 48 Used Tobacco, but Quit: Yes Month Tobacco Last Used: "3 years ago" Second Hand Smoke Exposure: No - Caffeine Use Caffeine Use: Reports: Coffee Caffeine Use Comment: takes 1 pot - Recreational Drug Use Recreational Drug Use: No ED ROS GENERAL - Review of Systems Review Of Systems: ROS reveals no pertinent complaints other than HPI. ED EXAM, GENERAL - Physical Exam Exam: See Below (See dictation) Course - Vital Signs Last Recorded V/S: Last Vital Signs Temp 36.6 C 06/03/17 21:33 Pulse 105 H 06/03/17 22:56 Resp 24 H 06/03/17 22:56 BP 131/66 06/03/17 22:56 Pulse Ox 94 L 06/03/17 22:56 - Orders/Labs/Meds Orders: Active Orders 24 hr Category Date Time Status Cardiac Monitoring [RC] . DIRECTED Care 06/03/17 21:41 Active EKG Documentation Completion [RC] STAT Care 06/03/17 21:41 Active Oxygen Therapy, ED [RC] ASDIRECTED Care 06/03/17 21:41 Active Pulse Oximetry [RC] ASDIRECTED Care 06/03/17 21:41 Active RT Aerosol Therapy [RC] ASDIRECTED Care 06/03/17 21:42 Active Chest 1V Frontal [CR] Stat Exams 06/03/17 21:42 Taken Sodium Chloride 0.9% [Normal Saline] 1,000 ml Med 06/03/17 23:00 Active IV ASDIRECTED Sodium Chloride 0.9% [Normal Saline] 500 ml Med 06/03/17 21:45 Active IV STAT Sodium Chloride 0.9% [Saline Flush] Med 06/03/17 21:42 Active 10 ml FLUSH ASDIRECTED PRN Sodium Chloride 0.9% [Saline Flush] Med 06/03/17 21:42 Active 2.5 ml FLUSH ASDIRECTED PRN Saline Lock Insert [OM.PC] Stat Oth 06/03/17 21:41 Ordered Medication Orders Sodium Chloride (Normal Saline) 500 mls @ 999 mls/hr IV STAT DIAMOND Last Admin: 06/03/17 22:00 Dose: 999 mls/hr Sodium Chloride (Normal Saline) 1,000 mls @ 125 mls/hr IV ASDIRECTED DIAMOND Sodium Chloride (Saline Flush) 10 ml FLUSH ASDIRECTED PRN PRN Reason: Keep Vein Open Sodium Chloride (Saline Flush) 2.5 ml FLUSH ASDIRECTED PRN PRN Reason: Keep Vein Open Labs: Laboratory Tests 06/03/17 06/03/17 06/03/17 Range/Units 21:45 21:45 21:45 WBC 13.58 H (4.0-11.0) K/uL RBC 4.32 L (4.50-5.90) M/uL Hgb 13.7 (13.0-17.0) g/dL Hct 42.2 (38.0-50.0) % MCV 97.7 (80.0-98.0) fL MCH 31.7 (27.0-32.0) pg MCHC 32.5 (31.0-37.0) g/dL RDW Std Deviation 52.6 (28.0-62.0) fl RDW Coeff of Dean 15 (11.0-15.0) % Plt Count 277 (150-400) K/uL MPV 10.40 (7.40-12.00) fL Neut % (Auto) 87.2 H (48.0-80.0) % Lymph % (Auto) 4.5 L (16.0-40.0) % [place] % (Auto) 8.2 (0.0-15.0) % Eos % (Auto) 0.0 (0.0-7.0) % Baso % (Auto) 0.1 (0.0-1.5) % Neut # (Auto) 11.9 H (1.4-5.7) K/uL Lymph # (Auto) 0.6 (0.6-2.4) K/uL [place] # (Auto) 1.1 H (0.0-0.8) K/uL Eos # (Auto) 0.0 (0.0-0.7) K/uL Baso # (Auto) 0.0 (0.0-0.1) K/uL Nucleated RBC % 0.0 /100WBC Nucleated RBCs # 0 K/uL Lactate (0.20-2.00) mmol/L Sodium 144 (136-146) mmol/L Potassium 4.3 (3.5-5.1) mmol/L Chloride 107 (98-110) mmol/L Carbon Dioxide 25 (21-31) mmol/L BUN 25 H (6.0-23.0) mg/dL Creatinine 0.9 (0.6-1.5) mg/dL Est Cr Clr Drug Dosing 81.28 mL/min Estimated GFR (MDRD) > 60.0 ml/min Glucose 105 (60-110) mg/dL Calcium 9.2 (8.8-10.8) mg/dL Total Bilirubin 0.3 (0.1-1.5) mg/dL AST 22 (5-40) IU/L ALT 34 (8-54) IU/L Alkaline Phosphatase 84 (40-150) Troponin I < 0.10 (0.0-0.29) NG/ML B-Natriuretic Peptide 99 (<100) PG/ML Total Protein 6.5 (6.0-8.0) g/dL Albumin 4.0 (3.4-4.8) g/dL Globulin 2.5 (2.0-3.5) g/dL Albumin/Globulin Ratio 1.6 (1.3-2.8) 06/03/17 Range/Units 21:45 WBC (4.0-11.0) K/uL RBC (4.50-5.90) M/uL Hgb (13.0-17.0) g/dL Hct (38.0-50.0) % MCV (80.0-98.0) fL MCH (27.0-32.0) pg MCHC (31.0-37.0) g/dL RDW Std Deviation (28.0-62.0) fl RDW Coeff of Dean (11.0-15.0) % Plt Count (150-400) K/uL MPV (7.40-12.00) fL Neut % (Auto) (48.0-80.0) % Lymph % (Auto) (16.0-40.0) % [place] % (Auto) (0.0-15.0) % Eos % (Auto) (0.0-7.0) % Baso % (Auto) (0.0-1.5) % Neut # (Auto) (1.4-5.7) K/uL Lymph # (Auto) (0.6-2.4) K/uL [place] # (Auto) (0.0-0.8) K/uL Eos # (Auto) (0.0-0.7) K/uL Baso # (Auto) (0.0-0.1) K/uL Nucleated RBC % /100WBC Nucleated RBCs # K/uL Lactate 1.6 (0.20-2.00) mmol/L Sodium (136-146) mmol/L Potassium (3.5-5.1) mmol/L Chloride (98-110) mmol/L Carbon Dioxide (21-31) mmol/L BUN (6.0-23.0) mg/dL Creatinine (0.6-1.5) mg/dL Est Cr Clr Drug Dosing mL/min Estimated GFR (MDRD) ml/min Glucose (60-110) mg/dL Calcium (8.8-10.8) mg/dL Total Bilirubin (0.1-1.5) mg/dL AST (5-40) IU/L ALT (8-54) IU/L Alkaline Phosphatase (40-150) Troponin I (0.0-0.29) NG/ML B-Natriuretic Peptide (<100) PG/ML Total Protein (6.0-8.0) g/dL Albumin (3.4-4.8) g/dL Globulin (2.0-3.5) g/dL Albumin/Globulin Ratio (1.3-2.8) Meds: Medications Generic Name Dose Route Start Last Admin Trade Name Freq PRN Reason Stop Dose Admin Sodium Chloride 500 mls @ 999 mls/hr 06/03/17 21:45 06/03/17 22:00 Normal Saline IV 999 mls/hr STAT DIAMOND Administration Sodium Chloride 1,000 mls @ 125 mls/hr 06/03/17 23:00 Normal Saline IV ASDIRECTED DIAMOND Sodium Chloride 10 ml 06/03/17 21:42 Saline Flush FLUSH ASDIRECTED PRN Keep Vein Open Sodium Chloride 2.5 ml 06/03/17 21:42 Saline Flush FLUSH ASDIRECTED PRN Keep Vein Open Discontinued Medications Generic Name Dose Route Start Last Admin Trade Name Freq PRN Reason Stop Dose Admin Albuterol/Ipratropium 3 ml 06/03/17 21:42 06/03/17 21:51 Duoneb 3.0-0.5 Mg/3 Ml NEB 06/03/17 21:43 3 ml ONETIME ONE Administration Methylprednisolone Sodium Succinate 125 mg 06/03/17 21:42 06/03/17 22:01 Solu-Medrol IVPUSH 06/03/17 21:43 125 mg ONETIME ONE Administration Departure - Departure Time of Disposition: 23:18 Disposition: Refer to Observation Condition: Good Clinical Impression: COPD exacerbation - Discharge Information Referrals: PCP,None [Primary Care Provider] - Forms: ED Department Discharge - My Orders Last 24 Hours: My Active Orders 06/03/17 21:41 Cardiac Monitoring [RC] . DIRECTED EKG Documentation Completion [RC] STAT Oxygen Therapy, ED [RC] ASDIRECTED Pulse Oximetry [RC] ASDIRECTED Saline Lock Insert [OM.PC] Stat 06/03/17 21:42 RT Aerosol Therapy [RC] ASDIRECTED Chest 1V Frontal [CR] Stat Sodium Chloride 0.9% [Saline Flush] 10 ml FLUSH ASDIRECTED PRN Sodium Chloride 0.9% [Saline Flush] 2.5 ml FLUSH ASDIRECTED PRN 06/03/17 21:45 Sodium Chloride 0.9% [Normal Saline] 500 ml IV STAT 06/03/17 23:00 Sodium Chloride 0.9% [Normal Saline] 1,000 ml IV ASDIRECTED - Assessment/Plan Last 24 Hours: My Active Orders 06/03/17 21:41 Cardiac Monitoring [RC] . DIRECTED EKG Documentation Completion [RC] STAT Oxygen Therapy, ED [RC] ASDIRECTED Pulse Oximetry [RC] ASDIRECTED Saline Lock Insert [OM.PC] Stat 06/03/17 21:42 RT Aerosol Therapy [RC] ASDIRECTED Chest 1V Frontal [CR] Stat Sodium Chloride 0.9% [Saline Flush] 10 ml FLUSH ASDIRECTED PRN Sodium Chloride 0.9% [Saline Flush] 2.5 ml FLUSH ASDIRECTED PRN 06/03/17 21:45 Sodium Chloride 0.9% [Normal Saline] 500 ml IV STAT 06/03/17 23:00 Sodium Chloride 0.9% [Normal Saline] 1,000 ml IV ASDIRECTED
[2017-06-03] MEDS ORDERED: Sodium Chloride 0.9% 500 ML IV SCH (21:45)
[2017-06-03 22:18] LABS: CHLORIDE,CL 107 mmol/L (98-110); SODIUM,NA 144 mmol/L (136-146)
[2017-06-03] MEDS ORDERED: Sodium Chloride 0.9% 1,000 ML IV SCH (23:00)
[2017-06-03] MEDS ORDERED: Magnesium Hydroxide 400 MG/5 ML Susp 30 ML Cup PO PRN (23:18)
[2017-06-03] MEDS ORDERED: Ondansetron 4 MG Tab.DIS PO PRN (23:18)
[2017-06-03] MEDS ORDERED: Morphine 10 MG/ML Syringe IVPUSH PRN (23:18)
[2017-06-03] MEDS ORDERED: Ondansetron 4 MG/2 ML SDV IVPUSH PRN (23:18)
[2017-06-04] MEDS: Heparin Sodium 5,000 Units/ML Vial SUBCUT SCH ×4 (00:10→23:38)
[2017-06-04] MEDS: Pantoprazole 40 MG Vial IVPUSH SCH ×2 (00:10→23:45)
[2017-06-04] MEDS: methylPREDNISolone Sodium Succinate 40 MG/1 ML SDV IVPUSH SCH ×2 (00:45→04:57)
[2017-06-04] MEDS: Albuterol/Ipratropium 3.0-0.5 MG/3 ML Neb Soln NEB PRN ×3 (02:33→19:43)
[2017-06-04 05:50] LABS: CHLORIDE,CL 106 mmol/L (98-110); SODIUM,NA 139 mmol/L (136-146)
[2017-06-04] MEDS: FLUoxetine 20 MG Cap PO SCH (08:00)
[2017-06-04] MEDS: Lisinopril 10 MG Tab PO SCH (08:01)
[2017-06-04] MEDS: Furosemide 20 MG Tab PO SCH ×2 (08:03→20:43)
[2017-06-04] MEDS: Allopurinol 300 MG Tab PO SCH (08:03)
[2017-06-04] MEDS ORDERED: Non-Formulary Medication 1 Each (Potassium Chloride [Potassium Chloride] 10 MEQ) PO SCH (09:00)
[2017-06-04] MEDS ORDERED: Non-Formulary Medication 1 Each (Fluticasone/Vilanterol 1 PUFF) INH SCH (09:00)
[2017-06-04] MEDS ORDERED: UMECLIDINIUM BROMIDE INH SCH (09:00)
--- NOTE | 2017-06-04 09:11 | PCM.HP ---
H&P History of Present Illness - General Date of Service: 06/04/17 Admit Problem/Dx: Admission Diagnosis/Problem Admission Diagnosis/Problem Hypoxia Source of Information: Patient History Limitations: Reports: No Limitations - History of Present Illness Initial Comments - Free Text/Narative: This is a 61-year-old obese male who is presenting for acute exacerbation of COPD. Patient has had frequent COPD exacerbations for which she is comfortable the ER. Most most recently patient came to the ER on May 23 for COPD exacerbation at that point in time he was treated with Levaquin and also put on steroid medication. Patient then saw his PCP Dr. Colmenares who put him on a increased dose of prednisone 40 mg per day 5 days prior to this admission. Patient states that he was not getting better, having increased dyspnea on exertion as well as having a cough with sputum production. Patient is chronically O2 dependent on 2 L oxygen. Patient also has a long-acting combination corticosteroid/lab inhaler as well as a muscarinic inhaler which he takes daily. Patient also has CHF for which she is on lisinopril. Patient has a significant 48 year smoking history however he quit 6 years ago. Patient denies any fevers or chills, nausea or vomiting or any signs of systemic infection in the last 5-10 days. Onset of Symptoms: Reports: Gradual chest Pain Score (Numeric/FACES): 7 - Related Data Allergies/Adverse Reactions: Allergies Allergy/AdvReac Type Severity Reaction Status Date / Time Sulfa (Sulfonamide Allergy Hives Verified 06/03/17 21:37 Antibiotics) Home Medications: Home Meds Allopurinol [Zyloprim] 300 mg PO DAILY 04/18/15 [History] FLUoxetine [PROzac] 20 mg PO DAILY 04/18/15 [History] LORazepam 1 mg PO TID PRN 04/18/15 [History] Furosemide 40 mg PO BID 02/12/17 [History] Lisinopril 20 mg PO DAILY 02/12/17 [History] Fluticasone/Vilanterol [Breo Ellipta 200-25 Mcg INH] 1 puff INH DAILY 03/04/17 [ History] Montelukast [Singulair] 10 mg PO BEDTIME 03/04/17 [History] Umeclidinium [place] [Incruse Ellipta*] 1 puff INH DAILY 03/04/17 [History] Albuterol [Proair HFA] 2 puff INH ASDIRECTED PRN 05/23/17 [History] Omeprazole 20 mg PO DAILY 05/23/17 [History] Potassium Chloride 10 meq PO BID 05/23/17 [History] Tamsulosin HCl [Flomax] 0.4 mg PO BEDTIME 05/23/17 [History] Albuterol Sulfate 2.5 mg INH Q4HR PRN 06/03/17 [History] Naproxen 500 mg PO BID 06/03/17 [History] Polyethylene Glycol 3350 [MiraLAX] 17 gm PO DAILY 06/03/17 [History] diphenhydrAMINE [Benadryl] 50 mg PO BEDTIME 06/03/17 [History] Past Medical History HEENT History: Reports: Cataract, Other (See Below) Other HEENT History: 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, Vertigo, wears glasses Cardiovascular History: Reports: Heart Failure, Hypertension, SOB on Exertion Respiratory History: Reports: COPD, Sleep Apnea Other Respiratory History: cpap, oxygen dependent @ 2lpm Gastrointestinal History: Reports: GERD Other Gastrointestinal History: diverticulitis Genitourinary History: Reports: BPH Musculoskeletal History: Reports: Gout Neurological History: Reports: Vertigo Psychiatric History: Reports: Anxiety, Depression Endocrine/Metabolic History: Reports: Obesity/BMI 30+ Hematologic History: Reports: None Immunologic History: Reports: None Oncologic (Cancer) History: Reports: None Dermatologic History: Reports: None - Infectious Disease History Infectious Disease History: Reports: Chicken Pox, Measles, Mumps - Past Surgical History Head Surgeries/Procedures: Reports: None HEENT Surgical History: Reports: Cataract Surgery Other HEENT Surgeries/Procedures: deaf in right ear, stent in neck for right ear - menieres Cardiovascular Surgical History: Reports: None Respiratory Surgical History: Reports: None GI Surgical History: Reports: Hernia, Abdominal, Hernia, Inguinal Other GI Surgeries/Procedures: hernia x3 Male Surgical History: Reports: None Endocrine Surgical History: Reports: None Neurological Surgical History: Reports: Other (See Below) Other Neurological Surgeries/Procedures: neck fusion Musculoskeletal Surgical History: Reports: Knee Replacement Other Musculoskeletal Surgeries/Procedures:: right total knee Social & Family History - Family History Family Medical History: Noncontributory HEENT: Reports: None Cardiac: Reports: Hypertension Respiratory: Reports: Asthma, COPD GI: Reports: None : Reports: None OBGYN: Reports: None Musculoskeletal: Reports: None Neurological: Reports: None Psychiatric: Reports: None Endocrine/Metabolic: Reports: Diabetes, type II Hematologic: Reports: None Immunologic: Reports: None Dermatologic: Reports: None Oncologic: Reports: Other (See Below) Other Oncologic Family History: sister had cancer but he wouldn't know which type - Tobacco Use Smoking Status *Q: Former Smoker Years of Tobacco use: 48 Used Tobacco, but Quit: Yes Month Tobacco Last Used: 6 years ago Second Hand Smoke Exposure: No - Caffeine Use Caffeine Use: Reports: Coffee Caffeine Use Comment: takes 1 pot - Recreational Drug Use Recreational Drug Use: No H&P Review of Systems - Review of Systems: Review Of Systems: ROS reveals no pertinent complaints other than HPI. Exam - Exam Exam: See Below - Vital Signs Vital Signs: Last Vital Signs Temp 36.9 C 06/04/17 04:00 Pulse 90 06/04/17 04:00 Resp 18 06/04/17 04:00 BP 141/74 H 06/04/17 08:01 Pulse Ox 94 L 06/04/17 04:00 Weight: 126.099 kg - Exam Quality Assessment: Supplemental Oxygen General: Alert, Oriented, Cooperative, Mild Distress HEENT: Conjunctiva Clear, Posterior Pharynx Clear Neck: Supple, Trachea Midline Lungs: Normal Respiratory Effort, Crackles, Rhonchi, Wheezing Cardiovascular: Regular Rate, Regular Rhythm GI/Abdominal Exam: Normal Bowel Sounds, Soft Extremities: Normal Inspection Psychiatric: Alert, Normal Affect - Patient Data Lab Results Last 24 hrs: Laboratory Results - last 24 hr 06/04/17 06/04/17 Range/Units 04:46 04:46 WBC 10.22 (4.0-11.0) K/uL RBC 3.91 L (4.50-5.90) M/uL Hgb 12.4 L (13.0-17.0) g/dL Hct 38.4 (38.0-50.0) % MCV 98.2 H (80.0-98.0) fL MCH 31.7 (27.0-32.0) pg MCHC 32.3 (31.0-37.0) g/dL RDW Std Deviation 53.0 (28.0-62.0) fl RDW Coeff of Dean 15 (11.0-15.0) % Plt Count 212 (150-400) K/uL MPV 10.70 (7.40-12.00) fL Neut % (Auto) 97.1 H (48.0-80.0) % Lymph % (Auto) 1.5 L (16.0-40.0) % [place] % (Auto) 1.3 (0.0-15.0) % Eos % (Auto) 0.0 (0.0-7.0) % Baso % (Auto) 0.1 (0.0-1.5) % Neut # (Auto) 9.9 H (1.4-5.7) K/uL Lymph # (Auto) 0.2 L (0.6-2.4) K/uL [place] # (Auto) 0.1 (0.0-0.8) K/uL Eos # (Auto) 0.0 (0.0-0.7) K/uL Baso # (Auto) 0.0 (0.0-0.1) K/uL Nucleated RBC % 0.0 /100WBC Nucleated RBCs # 0 K/uL Sodium 139 (136-146) mmol/L Potassium 4.5 (3.5-5.1) mmol/L Chloride 106 (98-110) mmol/L Carbon Dioxide 23 (21-31) mmol/L BUN 26 H (6.0-23.0) mg/dL Creatinine 0.9 (0.6-1.5) mg/dL Est Cr Clr Drug Dosing 81.28 mL/min Estimated GFR (MDRD) > 60.0 ml/min Glucose 287 H (60-110) mg/dL Calcium 8.5 L (8.8-10.8) mg/dL Magnesium 1.5 (1.5-2.3) mEq/L Total Bilirubin 0.3 (0.1-1.5) mg/dL AST 18 (5-40) IU/L ALT 30 (8-54) IU/L Alkaline Phosphatase 79 (40-150) Total Protein 5.4 L (6.0-8.0) g/dL Albumin 3.6 (3.4-4.8) g/dL Globulin 1.8 L (2.0-3.5) g/dL Albumin/Globulin Ratio 2.0 (1.3-2.8) Result Diagrams: 06/04/17 04:46 06/04/17 04:46 [place] Results Last 24 hrs: Microbiology 06/04/17 00:30 Gram Stain - Preliminary Sputum - Expectorated *Q Meaningful Use (ADM) - VTE *Q VTE Criteria *Q: - Stroke *Q Stroke Criteria *Q: - AMI *Q AMI Criteria *Q: - Problem List (1) COPD exacerbation SNOMED Code(s): 615541138469340 ICD Code: J44.1 - CHRONIC OBSTRUCTIVE PULMONARY DISEASE W (ACUTE) EXACERBATION Status: Acute Current Visit: Yes Problem List Initiated/Reviewed/Updated: Yes Orders Last 24hrs: Active Orders 24 hr Category Date Time Status Allopurinol [Zyloprim] Med 06/04/17 09:00 Active 300 mg PO DAILY FLUoxetine [PROzac] Med 06/04/17 09:00 Active 20 mg PO DAILY Fluticasone/Vilanterol Med 06/04/17 09:00 Active 1 puff INH DAILY Furosemide [Lasix] Med 06/04/17 09:00 Active 40 mg PO BID Lisinopril [Prinivil] Med 06/04/17 09:00 Active 20 mg PO DAILY Montelukast [Singulair] Med 06/04/17 21:00 Active 10 mg PO BEDTIME Pantoprazole [ProTONIX IV] Med 06/03/17 23:30 Active 40 mg IVPUSH Q24H Potassium Chloride [Potassium Chloride] Med 06/04/17 09:00 Active 10 meq PO BID Tamsulosin [Flomax] Med 06/04/17 21:00 Active 0.4 mg PO BEDTIME Umeclidinium [place] Med 06/04/17 09:00 Active 1 puff INH DAILY diphenhydrAMINE [Benadryl] Med 06/04/17 21:00 Active 50 mg PO BEDTIME methylPREDNISolone Sod Succ [Solu-MEDROL] Med 06/04/17 11:30 Active 60 mg IVPUSH Q6H Medication Orders Acetaminophen (Tylenol) 650 mg PO Q4H PRN PRN Reason: Pain (Mild 1-3)/fever Albuterol/Ipratropium (Duoneb 3.0-0.5 Mg/3 Ml) 3 ml NEB Q6HRRT PRN PRN Reason: Shortness Of Breath/wheezing Last Admin: 06/04/17 02:33 Dose: 3 ml Allopurinol (Zyloprim) 300 mg PO DAILY [facility] Last Admin: 06/04/17 08:03 Dose: 300 mg Diphenhydramine HCl (Benadryl) 50 mg PO BEDTIME [facility] Fluoxetine HCl (Prozac) 20 mg PO DAILY [facility] Last Admin: 06/04/17 08:00 Dose: 20 mg Furosemide (Lasix) 40 mg PO BID [facility] Last Admin: 06/04/17 08:03 Dose: 40 mg Heparin Sodium (Porcine) (Heparin Sodium) 5,000 units SUBCUT Q8H [facility] Last Admin: 06/04/17 07:10 Dose: 5,000 units Admin: 06/04/17 00:10 Dose: 5,000 units Sodium Chloride (Normal Saline) 500 mls @ 999 mls/hr IV STAT [facility] Last Admin: 06/03/17 22:00 Dose: 999 mls/hr Lisinopril (Prinivil) 20 mg PO DAILY [facility] Last Admin: 06/04/17 08:01 Dose: 20 mg Magnesium Hydroxide (Milk Of Magnesia) 30 ml PO Q12H PRN PRN Reason: Constipation Methylprednisolone Sodium Succinate (Solu-Medrol) 60 mg IVPUSH Q6H [facility] Montelukast Sodium (Singulair) 10 mg PO BEDTIME [facility] Morphine Sulfate (Morphine) 2 mg IVPUSH Q2H PRN PRN Reason: Pain (severe 7-10) Stop: 06/04/17 23:23 Non-Formulary Medication (Fluticasone/Vilanterol) 1 puff INH DAILY [facility] Non-Formulary Medication (Potassium Chloride [Potassium Chloride]) 10 meq PO BID [facility] Non-Formulary Medication (Umeclidinium [place]) 1 puff INH DAILY [facility] Ondansetron HCl (Zofran Odt) 4 mg PO Q4H PRN PRN Reason: nausea, able to take PO Ondansetron HCl (Zofran) 4 mg IVPUSH Q4H PRN PRN Reason: Nausea Pantoprazole Sodium (Protonix Iv) 40 mg IVPUSH Q24H [facility] Last Admin: 06/04/17 00:10 Dose: 40 mg Sodium Chloride (Saline Flush) 10 ml FLUSH ASDIRECTED PRN PRN Reason: Keep Vein Open Sodium Chloride (Saline Flush) 2.5 ml FLUSH ASDIRECTED PRN PRN Reason: Keep Vein Open Tamsulosin HCl (Flomax) 0.4 mg PO BEDTIME [facility] Assessment/Plan Comment:: Impressions: This is a 61-year-old obese male who has a significant medical history of recurrent COPD exacerbations for which she requires either ER or her hospitalization presenting today with another episode of acute COPD exacerbation with failure of outpatient treatment. Assessment: #1. Acute on chronic COPD exacerbation failure of proven on outpatient treatment , patient is O2 dependent on 2 L of oxygen at home #2. Hypoxia on exertion, fatigue, cough likely secondary to #1 #3. Leukocytosis likely secondary to corticosteroid usage for the past 10 days outpatient treatment. Plan: #1. For the acute COPD exacerbation patient to receive methylprednisolone 60 mg every 6 hours scheduled, Singulair 10 mg once daily, azithromycin 250 mg daily ( the reason for the azithromycin is patent clinical researcher shown that patients with recurrent COPD exacerbations requiring ER inpatient stay show clinical benefit from a low-dose azithromycin antibiotic prophylaxis. Upon discharge I shall put the patient on azithromycin 250 mg 3 times a week with the recommendation to continue this for about 48 weeks.) Patient is on O2 3 L for oxygen supplementation shall taper as needed. - Also obtained a sputum culture to assess for any possible infection - Consider setting up outpatient with outpatient pulmonology appointment #2. Continuation of home medication, CBC CMP in the a.m. Disposition in 1-2 days upon improvement. Patient is admitted for observation anticipated length of stay is less than 2 midnights.
--- NOTE | 2017-06-04 09:39 | CR ---
EXAM DATE: 06/03/17 PATIENT'S AGE: 61 Patient: ASTER BURNETT Facility: [place], [place] Site . Site : 1955 Study: XRay Chest [id number]/12/2018 10:26:45 PM Ordering Physician: Serena Young Final Report: INDICATION: Dyspnea. History of COPD. TECHNIQUE: Chest radiograph 1 view COMPARISON: All 05/23/2017. FINDINGS: Cardiovascular and mediastinum: The heart silhouette is normal in size and morphology. The mediastinum is normal in appearance. Lungs and pleural spaces: Both lungs are unremarkable in appearance. No sign of pleural effusion seen. No pneumothorax is identified. Bones and soft tissues: No significant findings. IMPRESSION: 1. No acute cardiopulmonary disease is seen. No significant interval change from 05/23/2017 comparison study. Dictated by Amrit Wang MD @ 06/03/2017 10:34:14 PM Dictated by: Amrit Wang MD @ 06/03/2017 22:34:18 (Electronic Signature) Report Signed by Proxy. [facility]
[2017-06-04] MEDS: Azithromycin 250 MG Tab PO SCH (09:43)
[2017-06-04] MEDS: Umeclidinium Bromide 1 PUFF INH SCH (10:26)
[2017-06-04] MEDS: Fluticasone/Vilanterol 1 PUFF INH SCH (10:26)
[2017-06-04] MEDS: methylPREDNISolone Sodium Succinate 125 MG/2 ML SDV IVPUSH SCH ×3 (11:15→23:42)
[2017-06-04] MEDS: Acetaminophen 325 MG Tab PO PRN (12:03)
[2017-06-04] MEDS ORDERED: Morphine 2 MG/ML Syringe IVPUSH PRN (12:14)
[2017-06-04] MEDS: diphenhydrAMINE 50 MG Cap PO SCH (20:43)
[2017-06-04] MEDS: Montelukast 10 MG Tab PO SCH (20:43)
[2017-06-04] MEDS: Potassium Chloride 10 MEQ Tab.ER PO SCH (20:43)
[2017-06-04] MEDS: Tamsulosin 0.4 MG Cap.ER PO SCH (20:44)
[2017-06-05] MEDS: methylPREDNISolone Sodium Succinate 125 MG/2 ML SDV IVPUSH SCH (05:33)
[2017-06-05] MEDS: Acetaminophen 325 MG Tab PO PRN ×2 (05:36→18:14)
[2017-06-05] MEDS: Heparin Sodium 5,000 Units/ML Vial SUBCUT SCH ×3 (06:38→23:41)
[2017-06-05 07:00] LABS: CHLORIDE,CL 100 mmol/L (98-110); SODIUM,NA 140 mmol/L (136-146)
[2017-06-05] MEDS: Umeclidinium Bromide 1 PUFF INH SCH (09:18)
[2017-06-05] MEDS: Fluticasone/Vilanterol 1 PUFF INH SCH (09:18)
[2017-06-05] MEDS: Furosemide 20 MG Tab PO SCH ×2 (09:19→20:31)
[2017-06-05] MEDS: Azithromycin 250 MG Tab PO SCH (09:19)
[2017-06-05] MEDS: Allopurinol 300 MG Tab PO SCH (09:19)
[2017-06-05] MEDS: Lisinopril 10 MG Tab PO SCH (09:19)
[2017-06-05] MEDS: FLUoxetine 20 MG Cap PO SCH (09:20)
[2017-06-05] MEDS: Potassium Chloride 10 MEQ Tab.ER PO SCH ×2 (09:23→20:31)
--- NOTE | 2017-06-05 18:23 | PCM.PN ---
- General Info Date of Service: 06/05/17 Admission Dx/Problem (Free Text): Patient from a clinical standpoint has improved and seems to be pretty close to baseline, however he is still fairly anxious in regards to being discharged today. He feels that he needs 1 more day secondary to the fact that he is worried that he may come back to the ER later in the evening due to COPD related concerns. Patient is not having any further shortness of breath, he is on 2 L nasal cannula, he does not have any fevers at the present moment. - Review of Systems General: Reports: Weakness HEENT: Reports: No Symptoms Pulmonary: Reports: No Symptoms, Cough, Sputum Gastrointestinal: Reports: No Symptoms - Patient Data Vitals - Most Recent: Last Vital Signs Temp 36.8 C 06/05/17 16:00 Pulse 86 06/05/17 16:00 Resp 20 06/05/17 16:00 BP 132/77 06/05/17 16:00 Pulse Ox 95 06/05/17 16:00 Weight - Most Recent: 126.099 kg I&O - Last 24 Hours: Intake & Output 06/05/17 06/05/17 06/05/17 06:59 14:59 22:59 Intake Total 700 926 Output Total 2350 800 Balance -1650 126 Lab Results Last 24 Hours: Laboratory Results - last 24 hr 06/05/17 06/05/17 Range/Units 06:14 06:14 WBC 17.12 H (4.0-11.0) K/uL RBC 4.06 L (4.50-5.90) M/uL Hgb 13.0 (13.0-17.0) g/dL Hct 39.2 (38.0-50.0) % MCV 96.6 (80.0-98.0) fL MCH 32.0 (27.0-32.0) pg MCHC 33.2 (31.0-37.0) g/dL RDW Std Deviation 52.4 (28.0-62.0) fl RDW Coeff of Dean 15 (11.0-15.0) % Plt Count 232 (150-400) K/uL MPV 10.50 (7.40-12.00) fL Neut % (Auto) 91.9 H (48.0-80.0) % Lymph % (Auto) 3.4 L (16.0-40.0) % [place] % (Auto) 4.6 (0.0-15.0) % Eos % (Auto) 0.0 (0.0-7.0) % Baso % (Auto) 0.1 (0.0-1.5) % Neut # (Auto) 15.8 H (1.4-5.7) K/uL Lymph # (Auto) 0.6 (0.6-2.4) K/uL [place] # (Auto) 0.8 (0.0-0.8) K/uL Eos # (Auto) 0.0 (0.0-0.7) K/uL Baso # (Auto) 0.0 (0.0-0.1) K/uL Nucleated RBC % 0.0 /100WBC Nucleated RBCs # 0 K/uL Sodium 140 (136-146) mmol/L Potassium 4.1 (3.5-5.1) mmol/L Chloride 100 (98-110) mmol/L Carbon Dioxide 28 (21-31) mmol/L BUN 23 (6.0-23.0) mg/dL Creatinine 0.8 (0.6-1.5) mg/dL Est Cr Clr Drug Dosing 91.44 mL/min Estimated GFR (MDRD) > 60.0 ml/min Glucose 154 H (60-110) mg/dL Calcium 9.4 (8.8-10.8) mg/dL Total Bilirubin 0.4 (0.1-1.5) mg/dL AST 20 (5-40) IU/L ALT 30 (8-54) IU/L Alkaline Phosphatase 69 (40-150) Total Protein 6.1 (6.0-8.0) g/dL Albumin 3.7 (3.4-4.8) g/dL Globulin 2.4 (2.0-3.5) g/dL Albumin/Globulin Ratio 1.5 (1.3-2.8) [place] Results Last 24 Hours: Microbiology 06/04/17 00:30 Gram Stain - Final Sputum - Expectorated Sputum Culture - Final Normal Respiratory Bridget Med Orders - Current: Current Medications Acetaminophen (Tylenol) 650 mg PO Q4H PRN PRN Reason: Pain (Mild 1-3)/fever Last Admin: 06/05/17 18:14 Dose: 650 mg Albuterol/Ipratropium (Duoneb 3.0-0.5 Mg/3 Ml) 3 ml NEB Q6HRRT PRN PRN Reason: Shortness Of Breath/wheezing Last Admin: 06/04/17 19:43 Dose: 3 ml Allopurinol (Zyloprim) 300 mg PO DAILY [facility] Last Admin: 06/05/17 09:19 Dose: 300 mg Azithromycin (Zithromax) 250 mg PO Q24H [facility] Last Admin: 06/05/17 09:19 Dose: 250 mg Diphenhydramine HCl (Benadryl) 50 mg PO BEDTIME [facility] Last Admin: 06/04/17 20:43 Dose: 50 mg Fluoxetine HCl (Prozac) 20 mg PO DAILY [facility] Last Admin: 06/05/17 09:20 Dose: 20 mg Furosemide (Lasix) 40 mg PO BID [facility] Last Admin: 06/05/17 09:19 Dose: 40 mg Heparin Sodium (Porcine) (Heparin Sodium) 5,000 units SUBCUT Q8H [facility] Last Admin: 06/05/17 15:21 Dose: 5,000 units Sodium Chloride (Normal Saline) 500 mls @ 999 mls/hr IV STAT [facility] Last Admin: 06/03/17 22:00 Dose: 999 mls/hr Lisinopril (Prinivil) 20 mg PO DAILY [facility] Last Admin: 06/05/17 09:19 Dose: 20 mg Magnesium Hydroxide (Milk Of Magnesia) 30 ml PO Q12H PRN PRN Reason: Constipation Montelukast Sodium (Singulair) 10 mg PO BEDTIME [facility] Last Admin: 06/04/17 20:43 Dose: 10 mg Ondansetron HCl (Zofran Odt) 4 mg PO Q4H PRN PRN Reason: nausea, able to take PO Ondansetron HCl (Zofran) 4 mg IVPUSH Q4H PRN PRN Reason: Nausea Pantoprazole Sodium (Protonix Iv) 40 mg IVPUSH Q24H [facility] Last Admin: 06/04/17 23:45 Dose: 40 mg Fluticasone/ (Vilanterol 1 Puff) 1 each INH DAILY [facility] Last Admin: 06/05/17 09:18 Dose: 1 each Umeclidinium [place] (1 Puff) 1 each INH DAILY [facility] Last Admin: 06/05/17 09:18 Dose: 1 each Potassium Chloride (Klor-Con 10) 10 meq PO BID [facility] Last Admin: 06/05/17 09:23 Dose: 10 meq Prednisone (Prednisone) 40 mg PO WITHBREAKFAST [facility] Sodium Chloride (Saline Flush) 10 ml FLUSH ASDIRECTED PRN PRN Reason: Keep Vein Open Sodium Chloride (Saline Flush) 2.5 ml FLUSH ASDIRECTED PRN PRN Reason: Keep Vein Open Tamsulosin HCl (Flomax) 0.4 mg PO BEDTIME [facility] Last Admin: 06/04/17 20:44 Dose: 0.4 mg Discontinued Medications Albuterol/Ipratropium (Duoneb 3.0-0.5 Mg/3 Ml) 3 ml NEB ONETIME ONE Stop: 06/03/17 21:43 Last Admin: 06/03/17 21:51 Dose: 3 ml Sodium Chloride (Normal Saline) 1,000 mls @ 125 mls/hr IV ASDIRECTED [facility] Last Admin: 06/03/17 23:18 Dose: 125 mls/hr Methylprednisolone Sodium Succinate (Solu-Medrol) 125 mg IVPUSH ONETIME ONE Stop: 06/03/17 21:43 Last Admin: 06/03/17 22:01 Dose: 125 mg Methylprednisolone Sodium Succinate (Solu-Medrol) 60 mg IVPUSH Q6H [facility] Last Admin: 06/04/17 04:57 Dose: 60 mg Methylprednisolone Sodium Succinate (Solu-Medrol) 60 mg IVPUSH Q6H [facility] Last Admin: 06/05/17 05:33 Dose: 60 mg Morphine Sulfate (Morphine) 2 mg IVPUSH Q2H PRN PRN Reason: Pain (severe 7-10) Stop: 06/04/17 23:23 Morphine Sulfate (Morphine) 2 mg IVPUSH Q2H PRN PRN Reason: Pain (severe 7-10) Stop: 06/04/17 23:23 Non-Formulary Medication (Fluticasone/Vilanterol) 1 puff INH DAILY [facility] Last Admin: 06/04/17 09:22 Dose: 1 puff Non-Formulary Medication (Potassium Chloride [Potassium Chloride]) 10 meq PO BID [facility] Last Admin: 06/04/17 09:22 Dose: 10 meq Non-Formulary Medication (Umeclidinium [place]) 1 puff INH DAILY [facility] Last Admin: 06/04/17 09:22 Dose: 1 puff - Exam Quality Assessment: Supplemental Oxygen General: Alert, Oriented, Cooperative HEENT: Pupils Equal Lungs: Normal Respiratory Effort, Crackles Cardiovascular: Regular Rate, Regular Rhythm GI/Abdominal Exam: Normal Bowel Sounds Extremities: Normal Inspection, Normal Range of Motion, No Pedal Edema - Problem List & Annotations (1) COPD exacerbation SNOMED Code(s): 094243207743723 Code(s): J44.1 - CHRONIC OBSTRUCTIVE PULMONARY DISEASE W (ACUTE) EXACERBATION Status: Acute Current Visit: Yes - Problem List Review Problem List Initiated/Reviewed/Updated: Yes - Plan Plan:: Impressions: This is a 61-year-old obese male who has a significant medical history of recurrent COPD exacerbations for which she requires either ER or her hospitalization presenting today with another episode of acute COPD exacerbation with failure of outpatient treatment. Assessment: #1. Acute on chronic COPD exacerbation failure of proven on outpatient treatment , patient is O2 dependent on 2 L of oxygen at home #2. Hypoxia on exertion, fatigue, cough likely secondary to #1 #3. Leukocytosis likely secondary to corticosteroid usage for the past 10 days outpatient treatment. Plan: #1. For the acute COPD exacerbation patient to receive methylprednisolone 60 mg every 6 hours scheduled, Singulair 10 mg once daily, azithromycin 250 mg daily ( the reason for the azithromycin is patent clinical researcher shown that patients with recurrent COPD exacerbations requiring ER inpatient stay show clinical benefit from a low-dose azithromycin antibiotic prophylaxis. Upon discharge I shall put the patient on azithromycin 250 mg 3 times a week with the recommendation to continue this for about 48 weeks.) Patient is on O2 2 L for oxygen supplementation shall taper as needed. - Attend a EKG to ensure no QT prolongation secondary to azithromycin use. Patient's QT interval was normal. - To stay 1 more day then will be discharged on azithromycin 250 mg times a week , also an appointment with pulmonology in [place], as well as being sent home on oral prednisone. #2. Continuation of home medication, CBC CMP in the a.m.
[2017-06-05] MEDS: Tamsulosin 0.4 MG Cap.ER PO SCH (20:31)
[2017-06-05] MEDS: Montelukast 10 MG Tab PO SCH (20:31)
[2017-06-05] MEDS: diphenhydrAMINE 50 MG Cap PO SCH (20:31)
[2017-06-05] MEDS: Albuterol/Ipratropium 3.0-0.5 MG/3 ML Neb Soln NEB PRN (21:01)
[2017-06-05] MEDS: Pantoprazole 40 MG Vial IVPUSH SCH (23:41)
[2017-06-06] MEDS ORDERED: methylPREDNISolone Sodium Succinate 125 MG/2 ML SDV IVPUSH ONE (02:04)
[2017-06-06] MEDS ORDERED: Albuterol/Ipratropium 3.0-0.5 MG/3 ML Neb Soln NEB ONE (02:06)
[2017-06-06] MEDS: Acetaminophen 325 MG Tab PO PRN (03:27)
[2017-06-06 06:19] LABS: CHLORIDE,CL 97 mmol/L (98-110); SODIUM,NA 139 mmol/L (136-146)
[2017-06-06] MEDS: Heparin Sodium 5,000 Units/ML Vial SUBCUT SCH ×2 (06:46→15:38)
[2017-06-06] MEDS ORDERED: predniSONE 20 MG Tab PO SCH (08:00)
[2017-06-06] MEDS: Potassium Chloride 10 MEQ Tab.ER PO SCH ×2 (08:49→20:25)
[2017-06-06] MEDS: Furosemide 20 MG Tab PO SCH ×2 (08:50→20:25)
[2017-06-06] MEDS: Lisinopril 10 MG Tab PO SCH (08:51)
[2017-06-06] MEDS: FLUoxetine 20 MG Cap PO SCH (08:52)
[2017-06-06] MEDS: Allopurinol 300 MG Tab PO SCH (08:53)
[2017-06-06] MEDS: Azithromycin 250 MG Tab PO SCH (08:53)
[2017-06-06] MEDS: Umeclidinium Bromide 1 PUFF INH SCH (09:06)
[2017-06-06] MEDS: Fluticasone/Vilanterol 1 PUFF INH SCH (09:06)
[2017-06-06] MEDS: Albuterol/Ipratropium 3.0-0.5 MG/3 ML Neb Soln NEB PRN (09:06)
--- NOTE | 2017-06-06 09:32 | CR ---
EXAM DATE: 06/03/17 PATIENT'S AGE: 61 Patient: ASTER BURNETT Facility: [place], [place] Site . Site : 1955 Study: XRay Chest [id number]/15/2018 2:33:45 AM Ordering Physician: Joe Park Final Report: INDICATION: Productive cough, shortness of breath TECHNIQUE: Chest radiograph 1 view COMPARISON: 06/03/2017 FINDINGS: Moderate degradation of image quality noted due to body habitus. Mediastinum: The heart silhouette is normal in size and morphology. The mediastinum is normal in appearance. Lungs: Mild bibasilar atelectasis is present and similar to prior examination. A new asymmetric density seen in the left upper lung zone overlying the 3rd costochondral junction. No sign of pleural effusion seen. No pneumothorax is identified. Bones and soft tissue: Unremarkable for age. IMPRESSIONS: 1. Mild bibasilar atelectasis is present and similar to prior examination. 2. A new asymmetric density seen in the left upper lung zone overlying the 3rd costochondral junction. This may represent a summation artifact but follow up to the radiograph recommended. Dictated by Arun Banerjee MD @ 06/06/2017 2:35:54 AM Dictated by: Arun Banerjee MD @ 06/06/2017 02:36:00 (Electronic Signature) Report Signed by Proxy. [facility]
[2017-06-06] MEDS ORDERED: LORazepam 1 MG Tab PO PRN (09:52)
[2017-06-06] MEDS: Albuterol/Ipratropium 3.0-0.5 MG/3 ML Neb Soln NEB SCH ×2 (12:05→17:04)
[2017-06-06] MEDS: LORazepam 1 MG Tab PO SCH (12:20)
--- NOTE | 2017-06-06 14:53 | PCM.PN ---
- General Info Date of Service: 06/06/17 Subjective Update: Patient's respiratory symptoms slightly worsened overnight, acquiring increased support. Patient's prednisolone was restarted. Patient also had a repeat chest x -ray. It is likely that this is an anxiety component as patient is a patient this morning patient was quite anxious about not being discharged today secondary to his respiratory symptoms that he experienced overnight. - Review of Systems General: Reports: Weakness HEENT: Reports: No Symptoms Pulmonary: Reports: Shortness of Breath, Wheezing Cardiovascular: Reports: No Symptoms Musculoskeletal: Reports: No Symptoms - Patient Data Vitals - Most Recent: Last Vital Signs Temp 36.7 C 06/06/17 11:00 Pulse 110 H 06/06/17 11:00 Resp 20 06/06/17 11:00 BP 149/71 H 06/06/17 11:00 Pulse Ox 93 L 06/06/17 11:00 Weight - Most Recent: 126.099 kg Med Orders - Current: Current Medications Acetaminophen (Tylenol) 650 mg PO Q4H PRN PRN Reason: Pain (Mild 1-3)/fever Last Admin: 06/06/17 03:27 Dose: 650 mg Albuterol/Ipratropium (Duoneb 3.0-0.5 Mg/3 Ml) 3 ml NEB Q6HRRT PRN PRN Reason: Shortness Of Breath/wheezing Last Admin: 06/06/17 09:06 Dose: 3 ml Albuterol/Ipratropium (Duoneb 3.0-0.5 Mg/3 Ml) 3 ml NEB Q6HRRT [facility] Last Admin: 06/06/17 12:05 Dose: 3 ml Allopurinol (Zyloprim) 300 mg PO DAILY [facility] Last Admin: 06/06/17 08:53 Dose: 300 mg Azithromycin (Zithromax) 250 mg PO Q24H [facility] Last Admin: 06/06/17 08:53 Dose: 250 mg Diphenhydramine HCl (Benadryl) 50 mg PO BEDTIME [facility] Last Admin: 06/05/17 20:31 Dose: 50 mg Fluoxetine HCl (Prozac) 20 mg PO DAILY [facility] Last Admin: 06/06/17 08:52 Dose: 20 mg Furosemide (Lasix) 40 mg PO BID [facility] Last Admin: 06/06/17 08:50 Dose: 40 mg Heparin Sodium (Porcine) (Heparin Sodium) 5,000 units SUBCUT Q8H [facility] Last Admin: 06/06/17 06:46 Dose: 5,000 units Lisinopril (Prinivil) 20 mg PO DAILY [facility] Last Admin: 06/06/17 08:51 Dose: 20 mg Lorazepam (Ativan) 1 mg PO DAILY [facility] Last Admin: 06/06/17 12:20 Dose: 1 mg Magnesium Hydroxide (Milk Of Magnesia) 30 ml PO Q12H PRN PRN Reason: Constipation Methylprednisolone Sodium Succinate (Solu-Medrol) 60 mg IVPUSH Q12H [facility] Montelukast Sodium (Singulair) 10 mg PO BEDTIME [facility] Last Admin: 06/05/17 20:31 Dose: 10 mg Ondansetron HCl (Zofran Odt) 4 mg PO Q4H PRN PRN Reason: nausea, able to take PO Ondansetron HCl (Zofran) 4 mg IVPUSH Q4H PRN PRN Reason: Nausea Pantoprazole Sodium (Protonix Iv) 40 mg IVPUSH Q24H [facility] Last Admin: 06/05/17 23:41 Dose: 40 mg Fluticasone/ (Vilanterol 1 Puff) 1 each INH DAILY [facility] Last Admin: 06/06/17 09:06 Dose: 1 each Umeclidinium [place] (1 Puff) 1 each INH DAILY [facility] Last Admin: 06/06/17 09:06 Dose: 1 each Potassium Chloride (Klor-Con 10) 10 meq PO BID [facility] Last Admin: 06/06/17 08:49 Dose: 10 meq Sodium Chloride (Saline Flush) 10 ml FLUSH ASDIRECTED PRN PRN Reason: Keep Vein Open Sodium Chloride (Saline Flush) 2.5 ml FLUSH ASDIRECTED PRN PRN Reason: Keep Vein Open Tamsulosin HCl (Flomax) 0.4 mg PO BEDTIME [facility] Last Admin: 06/05/17 20:31 Dose: 0.4 mg Discontinued Medications Albuterol/Ipratropium (Duoneb 3.0-0.5 Mg/3 Ml) 3 ml NEB ONETIME ONE Stop: 06/03/17 21:43 Last Admin: 06/03/17 21:51 Dose: 3 ml Albuterol/Ipratropium (Duoneb 3.0-0.5 Mg/3 Ml) 3 ml NEB ONETIME ONE Stop: 06/06/17 02:07 Last Admin: 06/06/17 02:22 Dose: 3 ml Sodium Chloride (Normal Saline) 500 mls @ 999 mls/hr IV STAT [facility] Last Admin: 06/03/17 22:00 Dose: 999 mls/hr Sodium Chloride (Normal Saline) 1,000 mls @ 125 mls/hr IV ASDIRECTED [facility] Last Admin: 06/03/17 23:18 Dose: 125 mls/hr Lorazepam (Ativan) 1 mg PO TID PRN PRN Reason: Anxiety Methylprednisolone Sodium Succinate (Solu-Medrol) 125 mg IVPUSH ONETIME ONE Stop: 06/03/17 21:43 Last Admin: 06/03/17 22:01 Dose: 125 mg Methylprednisolone Sodium Succinate (Solu-Medrol) 60 mg IVPUSH Q6H [facility] Last Admin: 06/04/17 04:57 Dose: 60 mg Methylprednisolone Sodium Succinate (Solu-Medrol) 60 mg IVPUSH Q6H [facility] Last Admin: 06/05/17 05:33 Dose: 60 mg Methylprednisolone Sodium Succinate (Solu-Medrol) 60 mg IVPUSH ONETIME ONE Stop: 06/06/17 02:05 Last Admin: 06/06/17 02:23 Dose: 60 mg Morphine Sulfate (Morphine) 2 mg IVPUSH Q2H PRN PRN Reason: Pain (severe 7-10) Stop: 06/04/17 23:23 Morphine Sulfate (Morphine) 2 mg IVPUSH Q2H PRN PRN Reason: Pain (severe 7-10) Stop: 06/04/17 23:23 Non-Formulary Medication (Fluticasone/Vilanterol) 1 puff INH DAILY [facility] Last Admin: 06/04/17 09:22 Dose: 1 puff Non-Formulary Medication (Potassium Chloride [Potassium Chloride]) 10 meq PO BID [facility] Last Admin: 06/04/17 09:22 Dose: 10 meq Non-Formulary Medication (Umeclidinium [place]) 1 puff INH DAILY [facility] Last Admin: 06/04/17 09:22 Dose: 1 puff Prednisone (Prednisone) 40 mg PO WITHBREAKFAST [facility] Last Admin: 06/06/17 08:48 Dose: 40 mg - Exam Quality Assessment: Supplemental Oxygen General: Alert, Oriented, Cooperative HEENT: Pupils Equal, Pupils Reactive Neck: Supple Lungs: Wheezing Cardiovascular: Regular Rhythm, Tachycardia GI/Abdominal Exam: Normal Bowel Sounds Extremities: Normal Inspection, Normal Range of Motion, No Pedal Edema - Problem List & Annotations (1) COPD exacerbation SNOMED Code(s): 825484399379401 Code(s): J44.1 - CHRONIC OBSTRUCTIVE PULMONARY DISEASE W (ACUTE) EXACERBATION Status: Acute Current Visit: Yes - Problem List Review Problem List Initiated/Reviewed/Updated: Yes - Plan Plan:: Impressions: This is a 61-year-old obese male who has a significant medical history of recurrent COPD exacerbations for which she requires either ER or her hospitalization presenting today with another episode of acute COPD exacerbation with failure of outpatient treatment. Assessment: #1. Acute on chronic COPD exacerbation failure of proven on outpatient treatment , patient is O2 dependent on 2 L of oxygen at home #2. Hypoxia on exertion, fatigue, cough likely secondary to #1 #3. Leukocytosis likely secondary to corticosteroid usage for the past 10 days outpatient treatment. #4. Tachycardia secondary to anxiety Plan: #1. For the acute COPD exacerbation patient to receive methylprednisolone 60 mg every 6 hours scheduled, Singulair 10 mg once daily, azithromycin 250 mg daily ( the reason for the azithromycin is patent clinical researcher shown that patients with recurrent COPD exacerbations requiring ER inpatient stay show clinical benefit from a low-dose azithromycin antibiotic prophylaxis. Upon discharge I shall put the patient on azithromycin 250 mg 3 times a week with the recommendation to continue this for about 48 weeks.) Patient is on O2 2 L for oxygen supplementation shall taper as needed. - Attend a EKG to ensure no QT prolongation secondary to azithromycin use. Patient's QT interval was normal. -Patient is to stay for an extra day secondary to tachycardia, and likely anxiety. Patient shall be restarted on his Ativan 1 mg daily. Shall reassess the patient's status tomorrow tocheck for improvement. #2. Continuation of home medication, CBC CMP in the a.m.
[2017-06-06] MEDS: methylPREDNISolone Sodium Succinate 125 MG/2 ML SDV IVPUSH SCH (15:40)
[2017-06-06] MEDS: Tamsulosin 0.4 MG Cap.ER PO SCH (20:25)
[2017-06-06] MEDS: diphenhydrAMINE 50 MG Cap PO SCH (20:25)
[2017-06-06] MEDS: Montelukast 10 MG Tab PO SCH (20:26)
[2017-06-07] MEDS: Albuterol/Ipratropium 3.0-0.5 MG/3 ML Neb Soln NEB SCH ×6 (00:18→21:03)
[2017-06-07] MEDS: Pantoprazole 40 MG Vial IVPUSH SCH ×2 (00:20→22:45)
[2017-06-07] MEDS: Heparin Sodium 5,000 Units/ML Vial SUBCUT SCH ×4 (00:23→22:45)
[2017-06-07] MEDS: methylPREDNISolone Sodium Succinate 125 MG/2 ML SDV IVPUSH SCH (04:49)
[2017-06-07] MEDS: Potassium Chloride 10 MEQ Tab.ER PO SCH ×2 (08:08→20:08)
[2017-06-07] MEDS: FLUoxetine 20 MG Cap PO SCH (08:08)
[2017-06-07] MEDS: LORazepam 1 MG Tab PO SCH (08:09)
[2017-06-07] MEDS: Furosemide 20 MG Tab PO SCH ×2 (08:09→20:08)
[2017-06-07] MEDS: Allopurinol 300 MG Tab PO SCH (08:10)
[2017-06-07] MEDS: Lisinopril 10 MG Tab PO SCH (08:10)
[2017-06-07] MEDS: Acetaminophen 325 MG Tab PO PRN (08:21)
[2017-06-07] MEDS: Fluticasone/Vilanterol 1 PUFF INH SCH (08:35)
[2017-06-07] MEDS: Umeclidinium Bromide 1 PUFF INH SCH (08:35)
[2017-06-07] MEDS ORDERED: Digoxin 500 MCG/2 ML Amp ONE (09:04)
[2017-06-07] MEDS ORDERED: Diltiazem 25 MG/5 ML SDV IVPUSH ONE (09:18)
[2017-06-07 10:05] LABS: CHLORIDE,CL 96 mmol/L (98-110); SODIUM,NA 137 mmol/L (136-146)
[2017-06-07] MEDS: Azithromycin 250 MG Tab PO SCH (10:13)
[2017-06-07] MEDS: guaiFENesin 600 MG Tab.ER PO SCH ×3 (10:13→22:45)
--- NOTE | 2017-06-07 11:14 | CR ---
EXAMINATION: Two-view chest (PA and Lateral views). HISTORY: Tachycardia. FINDINGS: The trachea is midline. The cardiomediastinal silhouette is within normal limits. No pulmonary infilt rates, effusions or pneumothorax. Mild dependent atelectasis bilaterally. Osseous structures appear unremarkable. IMPRESSION: No acute cardiopulmonary process.
[2017-06-07] MEDS: methylPREDNISolone Sodium Succinate 40 MG/1 ML SDV IVPUSH SCH ×2 (13:59→20:10)
[2017-06-07] MEDS: Sodium Chloride 0.9% Inhalation Soln 3 ML Neb INH SCH ×2 (15:41→21:03)
--- NOTE | 2017-06-07 18:08 | PCM.PN ---
- General Info Date of Service: 06/07/17 Subjective Update: Patient had an acute event. This morning, I walked into the patient's room and he was sitting in his chair excessively coughing the nursing staff was for assessing his blood pressure and try to calm him down, he was having acute chest pain left-sided that's nonradiating initially he described it as a pressure type pain. His oxygen requirement was raised to 10 L on nasal cannula, I immediately got a blood pressure check, EKG, troponins. His heart rate was elevated in the 150s to 160s, blood pressure in the 180s. I vasovagal the patient to reduce his blood pressure, the EKG and telemetry only indicated sinus tachycardia, the patient's started to calm down he still had an elevated heart rate in the 140s he was given a IV push of diltiazem 15 mg which helped reduce his heart rate down. Afterwards the patient appeared to be doing better no longer in chest pain. Troponins have been negative so far. Patient is on diltiazem every 6 hours for a heart rate about 110. Patient is doing well at the present moment. - Review of Systems General: Reports: Weakness, Fatigue Pulmonary: Reports: Shortness of Breath, Wheezing Cardiovascular: Reports: Chest Pain, Palpitations - Patient Data Vitals - Most Recent: Last Vital Signs Temp 37.1 C 06/07/17 17:00 Pulse 115 H 06/07/17 17:00 Resp 24 H 06/07/17 17:00 BP 103/68 06/07/17 17:00 Pulse Ox 96 06/07/17 17:00 Weight - Most Recent: 126.099 kg I&O - Last 24 Hours: Intake & Output 06/07/17 06/07/17 06/07/17 06:59 14:59 22:59 Intake Total 800 Output Total 1380 Balance -580 Lab Results Last 24 Hours: Laboratory Results - last 24 hr 06/07/17 06/07/17 06/07/17 Range/Units 09:27 09:27 09:27 WBC 17.27 H (4.0-11.0) K/uL RBC 4.22 L (4.50-5.90) M/uL Hgb 13.5 (13.0-17.0) g/dL Hct 40.9 (38.0-50.0) % MCV 96.9 (80.0-98.0) fL MCH 32.0 (27.0-32.0) pg MCHC 33.0 (31.0-37.0) g/dL RDW Std Deviation 52.7 (28.0-62.0) fl RDW Coeff of Dean 15 (11.0-15.0) % Plt Count 242 (150-400) K/uL MPV 10.30 (7.40-12.00) fL Neut % (Auto) 92.8 H (48.0-80.0) % Lymph % (Auto) 4.8 L (16.0-40.0) % [place] % (Auto) 2.3 (0.0-15.0) % Eos % (Auto) 0.0 (0.0-7.0) % Baso % (Auto) 0.1 (0.0-1.5) % Neut # (Auto) 16.0 H (1.4-5.7) K/uL Lymph # (Auto) 0.8 (0.6-2.4) K/uL [place] # (Auto) 0.4 (0.0-0.8) K/uL Eos # (Auto) 0.0 (0.0-0.7) K/uL Baso # (Auto) 0.0 (0.0-0.1) K/uL Nucleated RBC % 0.0 /100WBC Nucleated RBCs # 0 K/uL Sodium 137 (136-146) mmol/L Potassium 3.9 (3.5-5.1) mmol/L Chloride 96 L (98-110) mmol/L Carbon Dioxide 29 (21-31) mmol/L BUN 29 H (6.0-23.0) mg/dL Creatinine 1.0 (0.6-1.5) mg/dL Est Cr Clr Drug Dosing 73.15 mL/min Estimated GFR (MDRD) > 60.0 ml/min Glucose 236 H (60-110) mg/dL Calcium 9.6 (8.8-10.8) mg/dL Total Bilirubin 0.5 (0.1-1.5) mg/dL AST 34 (5-40) IU/L ALT 46 (8-54) IU/L Alkaline Phosphatase 75 (40-150) CK-MB (CK-2) 1.7 (0-6.6) ng/ml Troponin I < 0.10 (0.0-0.29) NG/ML Total Protein 6.5 (6.0-8.0) g/dL Albumin 3.8 (3.4-4.8) g/dL Globulin 2.7 (2.0-3.5) g/dL Albumin/Globulin Ratio 1.4 (1.3-2.8) 06/07/17 Range/Units 15:30 WBC (4.0-11.0) K/uL RBC (4.50-5.90) M/uL Hgb (13.0-17.0) g/dL Hct (38.0-50.0) % MCV (80.0-98.0) fL MCH (27.0-32.0) pg MCHC (31.0-37.0) g/dL RDW Std Deviation (28.0-62.0) fl RDW Coeff of Dean (11.0-15.0) % Plt Count (150-400) K/uL MPV (7.40-12.00) fL Neut % (Auto) (48.0-80.0) % Lymph % (Auto) (16.0-40.0) % [place] % (Auto) (0.0-15.0) % Eos % (Auto) (0.0-7.0) % Baso % (Auto) (0.0-1.5) % Neut # (Auto) (1.4-5.7) K/uL Lymph # (Auto) (0.6-2.4) K/uL [place] # (Auto) (0.0-0.8) K/uL Eos # (Auto) (0.0-0.7) K/uL Baso # (Auto) (0.0-0.1) K/uL Nucleated RBC % /100WBC Nucleated RBCs # K/uL Sodium (136-146) mmol/L Potassium (3.5-5.1) mmol/L Chloride (98-110) mmol/L Carbon Dioxide (21-31) mmol/L BUN (6.0-23.0) mg/dL Creatinine (0.6-1.5) mg/dL Est Cr Clr Drug Dosing mL/min Estimated GFR (MDRD) ml/min Glucose (60-110) mg/dL Calcium (8.8-10.8) mg/dL Total Bilirubin (0.1-1.5) mg/dL AST (5-40) IU/L ALT (8-54) IU/L Alkaline Phosphatase (40-150) CK-MB (CK-2) (0-6.6) ng/ml Troponin I < 0.10 (0.0-0.29) NG/ML Total Protein (6.0-8.0) g/dL Albumin (3.4-4.8) g/dL Globulin (2.0-3.5) g/dL Albumin/Globulin Ratio (1.3-2.8) Med Orders - Current: Current Medications Acetaminophen (Tylenol) 650 mg PO Q4H PRN PRN Reason: Pain (Mild 1-3)/fever Last Admin: 06/07/17 08:21 Dose: 650 mg Albuterol/Ipratropium (Duoneb 3.0-0.5 Mg/3 Ml) 3 ml NEB Q6HRRT PRN PRN Reason: Shortness Of Breath/wheezing Last Admin: 06/06/17 09:06 Dose: 3 ml Albuterol/Ipratropium (Duoneb 3.0-0.5 Mg/3 Ml) 3 ml NEB Q4HRRT [facility] Last Admin: 06/07/17 15:41 Dose: 3 ml Allopurinol (Zyloprim) 300 mg PO DAILY [facility] Last Admin: 06/07/17 08:10 Dose: 300 mg Azithromycin (Zithromax) 250 mg PO Q24H [facility] Last Admin: 06/07/17 10:13 Dose: 250 mg Diltiazem HCl (Diltiazem) 15 mg IVPUSH Q3H PRN PRN Reason: HR above 110 Diphenhydramine HCl (Benadryl) 50 mg PO BEDTIME [facility] Last Admin: 06/06/17 20:25 Dose: 50 mg Fluoxetine HCl (Prozac) 20 mg PO DAILY [facility] Last Admin: 06/07/17 08:08 Dose: 20 mg Furosemide (Lasix) 40 mg PO BID [facility] Last Admin: 06/07/17 08:09 Dose: 40 mg Guaifenesin (Mucinex) 600 mg PO TID [facility] Last Admin: 02/16/18 13:59 Dose: 600 mg Heparin Sodium (Porcine) (Heparin Sodium) 5,000 units SUBCUT Q8H [facility] Last Admin: 06/07/17 15:10 Dose: 5,000 units Lisinopril (Prinivil) 20 mg PO DAILY [facility] Last Admin: 06/07/17 08:10 Dose: 20 mg Lorazepam (Ativan) 1 mg PO DAILY [facility] Last Admin: 06/07/17 08:09 Dose: 1 mg Magnesium Hydroxide (Milk Of Magnesia) 30 ml PO Q12H PRN PRN Reason: Constipation Methylprednisolone Sodium Succinate (Solu-Medrol) 60 mg IVPUSH Q8H [facility] Last Admin: 06/07/17 13:59 Dose: 60 mg Montelukast Sodium (Singulair) 10 mg PO BEDTIME [facility] Last Admin: 06/06/17 20:26 Dose: 10 mg Ondansetron HCl (Zofran Odt) 4 mg PO Q4H PRN PRN Reason: nausea, able to take PO Ondansetron HCl (Zofran) 4 mg IVPUSH Q4H PRN PRN Reason: Nausea Pantoprazole Sodium (Protonix Iv) 40 mg IVPUSH Q24H [facility] Last Admin: 06/07/17 00:20 Dose: 40 mg Fluticasone/ (Vilanterol 1 Puff) 1 each INH DAILY [facility] Last Admin: 06/07/17 08:35 Dose: 1 each Umeclidinium [place] (1 Puff) 1 each INH DAILY [facility] Last Admin: 06/07/17 08:35 Dose: 1 each Potassium Chloride (Klor-Con 10) 10 meq PO BID [facility] Last Admin: 06/07/17 08:08 Dose: 10 meq Sodium Chloride (Saline Flush) 10 ml FLUSH ASDIRECTED PRN PRN Reason: Keep Vein Open Sodium Chloride (Saline Flush) 2.5 ml FLUSH ASDIRECTED PRN PRN Reason: Keep Vein Open Sodium Chloride (Sodium Chloride 0.9%) 3 ml INH TID [facility] Last Admin: 06/07/17 15:41 Dose: 3 ml Tamsulosin HCl (Flomax) 0.4 mg PO BEDTIME [facility] Last Admin: 06/06/17 20:25 Dose: 0.4 mg Discontinued Medications Albuterol/Ipratropium (Duoneb 3.0-0.5 Mg/3 Ml) 3 ml NEB ONETIME ONE Stop: 06/03/17 21:43 Last Admin: 06/03/17 21:51 Dose: 3 ml Albuterol/Ipratropium (Duoneb 3.0-0.5 Mg/3 Ml) 3 ml NEB ONETIME ONE Stop: 06/06/17 02:07 Last Admin: 06/06/17 02:22 Dose: 3 ml Albuterol/Ipratropium (Duoneb 3.0-0.5 Mg/3 Ml) 3 ml NEB Q6HRRT [facility] Last Admin: 06/07/17 06:03 Dose: 3 ml Digoxin (Lanoxin) Confirm Administered Dose 500 mcg .ROUTE .STK-MED ONE Stop: 06/07/17 09:05 Last Admin: 06/07/17 09:29 Dose: Not Given Diltiazem HCl (Diltiazem) 15 mg IVPUSH ONETIME ONE Stop: 06/07/17 09:19 Last Admin: 06/07/17 09:24 Dose: 15 mg Sodium Chloride (Normal Saline) 500 mls @ 999 mls/hr IV STAT [facility] Last Admin: 06/03/17 22:00 Dose: 999 mls/hr Sodium Chloride (Normal Saline) 1,000 mls @ 125 mls/hr IV ASDIRECTED [facility] Last Admin: 06/03/17 23:18 Dose: 125 mls/hr Lorazepam (Ativan) 1 mg PO TID PRN PRN Reason: Anxiety Methylprednisolone Sodium Succinate (Solu-Medrol) 125 mg IVPUSH ONETIME ONE Stop: 06/03/17 21:43 Last Admin: 06/03/17 22:01 Dose: 125 mg Methylprednisolone Sodium Succinate (Solu-Medrol) 60 mg IVPUSH Q6H [facility] Last Admin: 06/04/17 04:57 Dose: 60 mg Methylprednisolone Sodium Succinate (Solu-Medrol) 60 mg IVPUSH Q6H [facility] Last Admin: 06/05/17 05:33 Dose: 60 mg Methylprednisolone Sodium Succinate (Solu-Medrol) 60 mg IVPUSH ONETIME ONE Stop: 06/06/17 02:05 Last Admin: 06/06/17 02:23 Dose: 60 mg Methylprednisolone Sodium Succinate (Solu-Medrol) 60 mg IVPUSH Q12H [facility] Last Admin: 06/07/17 04:49 Dose: 60 mg Morphine Sulfate (Morphine) 2 mg IVPUSH Q2H PRN PRN Reason: Pain (severe 7-10) Stop: 06/04/17 23:23 Morphine Sulfate (Morphine) 2 mg IVPUSH Q2H PRN PRN Reason: Pain (severe 7-10) Stop: 06/04/17 23:23 Non-Formulary Medication (Fluticasone/Vilanterol) 1 puff INH DAILY [facility] Last Admin: 06/04/17 09:22 Dose: 1 puff Non-Formulary Medication (Potassium Chloride [Potassium Chloride]) 10 meq PO BID [facility] Last Admin: 06/04/17 09:22 Dose: 10 meq Non-Formulary Medication (Umeclidinium [place]) 1 puff INH DAILY [facility] Last Admin: 06/04/17 09:22 Dose: 1 puff Prednisone (Prednisone) 40 mg PO WITHBREAKFAST [facility] Last Admin: 06/06/17 08:48 Dose: 40 mg - Exam Quality Assessment: Supplemental Oxygen General: Alert, Oriented, Mild Distress, Moderate Distress Neck: Supple Lungs: Wheezing Cardiovascular: Regular Rhythm, Tachycardia GI/Abdominal Exam: Normal Bowel Sounds Extremities: Normal Inspection, Normal Range of Motion, Non-Tender, No Pedal Edema - Problem List & Annotations (1) COPD exacerbation SNOMED Code(s): 591726158836278 Code(s): J44.1 - CHRONIC OBSTRUCTIVE PULMONARY DISEASE W (ACUTE) EXACERBATION Status: Acute Current Visit: Yes - Problem List Review Problem List Initiated/Reviewed/Updated: Yes - My Orders Last 24 Hours: My Active Orders 06/07/17 09:02 EKG 12 Lead [EKG Documentation Completion] [RC] STAT 06/07/17 14:22 Code Status [Resuscitation Status] Routine - Plan Plan:: Impressions: This is a 61-year-old obese male who has a significant medical history of recurrent COPD exacerbations for which she requires either ER or her hospitalization presenting today with another episode of acute COPD exacerbation with failure of outpatient treatment. Assessment: #1. Acute on chronic COPD exacerbation failure of proven on outpatient treatment , patient is O2 dependent on 2 L of oxygen at home #2. Hypoxia on exertion, fatigue, cough likely secondary to #1 #3. Leukocytosis likely secondary to corticosteroid usage for the past 10 days outpatient treatment. #4. Tachycardia secondary to anxiety Plan: #1. For the acute COPD exacerbation patient to receive methylprednisolone 60 mg every 6 hours scheduled, Singulair 10 mg once daily, azithromycin 250 mg daily ( the reason for the azithromycin is patent clinical researcher shown that patients with recurrent COPD exacerbations requiring ER inpatient stay show clinical benefit from a low-dose azithromycin antibiotic prophylaxis. Upon discharge I shall put the patient on azithromycin 250 mg 3 times a week with the recommendation to continue this for about 48 weeks.) Due to the patient's acute symptoms earlier today, he is now on a pulmonary toilet to help with his respiratory symptoms improving including duo nebs, saline, Mucinex. Patient is on O2 5 L for oxygen supplementation shall taper as needed. - EKG indicates sinus tachycardia, for the patient's tachycardia I have prescribed diltiazem 15 mg when necessary every 3 hours for a heart rate above 110 as long as the systolic blood pressure is greater then 100. - Tropes negative 2. awaiting the last troponin. -Patient is to be reevaluated tomorrow for reassessment. #2. Continuation of home medication, CBC CMP in the a.m.
[2017-06-07] MEDS: diphenhydrAMINE 50 MG Cap PO SCH (20:08)
[2017-06-07] MEDS: Tamsulosin 0.4 MG Cap.ER PO SCH (20:08)
[2017-06-07] MEDS: Montelukast 10 MG Tab PO SCH (20:08)
[2017-06-07] MEDS: Diltiazem 25 MG/5 ML SDV IVPUSH PRN (20:29)
[2017-06-08] MEDS: Albuterol/Ipratropium 3.0-0.5 MG/3 ML Neb Soln NEB SCH ×3 (01:06→12:03)
[2017-06-08] MEDS: Acetaminophen 325 MG Tab PO PRN (01:52)
[2017-06-08] MEDS: methylPREDNISolone Sodium Succinate 40 MG/1 ML SDV IVPUSH SCH ×2 (05:11→12:03)
[2017-06-08] MEDS: guaiFENesin 600 MG Tab.ER PO SCH (05:12)
[2017-06-08] MEDS: Sodium Chloride 0.9% Inhalation Soln 3 ML Neb INH SCH (05:38)
[2017-06-08 06:45] LABS: CHLORIDE,CL 98 mmol/L (98-110); SODIUM,NA 139 mmol/L (136-146)
[2017-06-08] MEDS: Diltiazem 25 MG/5 ML SDV IVPUSH PRN (06:54)
[2017-06-08] MEDS: Heparin Sodium 5,000 Units/ML Vial SUBCUT SCH (06:55)
[2017-06-08] MEDS: FLUoxetine 20 MG Cap PO SCH (08:26)
[2017-06-08] MEDS: Allopurinol 300 MG Tab PO SCH (08:26)
[2017-06-08] MEDS: Lisinopril 10 MG Tab PO SCH (08:26)
[2017-06-08] MEDS: LORazepam 1 MG Tab PO SCH (08:26)
[2017-06-08] MEDS: Potassium Chloride 10 MEQ Tab.ER PO SCH (08:26)
[2017-06-08] MEDS: Furosemide 20 MG Tab PO SCH (08:27)
[2017-06-08] MEDS: Azithromycin 250 MG Tab PO SCH (08:32)
[2017-06-08] MEDS: Fluticasone/Vilanterol 1 PUFF INH SCH (08:33)
[2017-06-08] MEDS: Umeclidinium Bromide 1 PUFF INH SCH (08:33)
[2017-06-08 11:52] VITALS: BP 138/64
--- NOTE | 2017-06-08 13:12 | PCM.DCSUM1 ---
<Marty Simmons Z - Last Filed: 06/08/17 19:13> Discharge Summary - Hospital Course Free Text/Narrative:: Discharge Summary Date of admission: 06/04/2017 Date of discharge: 06/08/2017 Admitting diagnosis: #1. Acute on chronic COPD exacerbation with failure of outpatient treatment #2. Hypoxia on exertion, fatigue, cough likely secondary to #1 #3. Leukocytosis likely secondary to corticosteroid use for the past 10 days as outpatient treatment #4. #5. Discharge diagnoses: #1. Acute on chronic COPD Exacerbation Now Resolved #2. Chronic hypoxia on 3 L of O2 #3. Leukocytosis secondary to chronic corticosteroid usage #4. Anxiety #5. Consultations: None Procedures: None Hospitalization course: Patient was admitted due to chronic COPD exacerbation with failure of outpatient treatment. Patient was placed on IV Solu-Medrol, long -term prophylactic low-dose azithromycin 250 mg, by mouth, duo nebs. Patient also required increase in his O2 supplementation. Patient improvement was progressing well, on day three of admission, patient started to show increased signs of anxiety and worsening of his COPD sypmptoms, we decieded to keep the patient for one more night, however on 06/07/2017 at 8 am he started ended up having a bout of coughing and it was coupled anxiety. Assessment him indicated elevated systolic blood pressure along with tachycardia, troponins were drawn as well as an EKG which showed sinus tachycardia. Patient was given diltiazem 15 mg which helped reduced his tachycardia. Patient after calming down had a resolution of his symptoms, decision was made to give the patient pulmonary toilet which helped improve the patient's symptoms. And on 06/08/2017 patient was stable stated that he felt a lot better and was ready to go home. Disposition on discharge: Home Condition on discharge: Stable Discharge medications: Continuation of home medication, in addition patient was continued on prednisone 40 mg tapered, patient was also continued on long-term prophylactic antibiotics of azithromycin 250 mg to be taken 3 times a week. Follow-up instructions: Patient is instructed to follow-up with his primary care physician Dr. Bryn Colmenares, as well as it is recommended that Dr. Colmenares set up the patient with pulmonary medicine in [place] - Discharge Data Discharge Date: 06/08/17 Discharge Disposition: Home, Self-Care 01 Condition: Fair - Discharge Diagnosis/Problem(s) (1) COPD exacerbation SNOMED Code(s): 781998448224239 ICD Code: J44.1 - CHRONIC OBSTRUCTIVE PULMONARY DISEASE W (ACUTE) EXACERBATION Status: Acute - Patient Instructions Diet: Heart Healthy Diet Activity: As Tolerated Driving: Do Not Drive Notify Provider of: Fever, Increased Pain, Swelling and Redness, Drainage - Discharge Plan Prescriptions/Med Rec: Azithromycin [IMW: Azithromycin] 250 mg PO ASDIRECTED 30 Days #15 tab Prednisone [IMW: predniSONE] 40 mg PO WITHBREAKFAST 10 Days #10 tab Home Medications: Home Meds Allopurinol [Zyloprim] 300 mg PO DAILY 04/18/15 [History] FLUoxetine [PROzac] 20 mg PO DAILY 04/18/15 [History] LORazepam 1 mg PO TID PRN 04/18/15 [History] Furosemide 40 mg PO BID 02/12/17 [History] Lisinopril 20 mg PO DAILY 02/12/17 [History] Fluticasone/Vilanterol [Breo Ellipta 200-25 Mcg INH] 1 puff INH DAILY 03/04/17 [ History] Montelukast [Singulair] 10 mg PO BEDTIME 03/04/17 [History] Umeclidinium [place] [Incruse Ellipta*] 1 puff INH DAILY 03/04/17 [History] Albuterol [Proair HFA] 2 puff INH ASDIRECTED PRN 05/23/17 [History] Omeprazole 20 mg PO DAILY 05/23/17 [History] Potassium Chloride 10 meq PO BID 05/23/17 [History] Tamsulosin HCl [Flomax] 0.4 mg PO BEDTIME 05/23/17 [History] Albuterol Sulfate 2.5 mg INH Q4HR PRN 06/03/17 [History] Naproxen 500 mg PO BID 06/03/17 [History] Polyethylene Glycol 3350 [MiraLAX] 17 gm PO DAILY 06/03/17 [History] diphenhydrAMINE [Benadryl] 50 mg PO BEDTIME 06/03/17 [History] Azithromycin [IMW: Azithromycin] 250 mg PO ASDIRECTED 30 Days #15 tab 06/08/17 [ Rx] Prednisone [IMW: predniSONE] 40 mg PO WITHBREAKFAST 10 Days #10 tab 06/08/17 [Rx ] Patient Handouts: Chronic Obstructive Pulmonary Disease Exacerbation, Easy-to- Read, Azithromycin tablets, Prednisone tablets Referrals: [facility] [Outside] Bryn Colmenares MD [Physician] - 06/18/17 10:15 am - Discharge Summary/Plan Comment DC Time >30 min.: No - Patient Data Vitals - Most Recent: Last Vital Signs Temp 37.2 C 06/08/17 11:52 Pulse 107 H 06/08/17 11:52 Resp 16 06/08/17 11:52 BP 138/64 06/08/17 11:52 Pulse Ox 92 L 06/08/17 11:52 Weight - Most Recent: 126.099 kg I&O - Last 24 hours: Intake & Output 06/07/17 06/08/17 06/08/17 22:59 06:59 14:59 Intake Total 800 1900 Output Total 900 1525 Balance -100 375 Lab Results - Last 24 hrs: Laboratory Results - last 24 hr 06/07/17 06/07/17 06/08/17 Range/Units 15:30 21:25 06:10 WBC 11.50 H (4.0-11.0) K/uL RBC 4.02 L (4.50-5.90) M/uL Hgb 12.9 L (13.0-17.0) g/dL Hct 38.6 (38.0-50.0) % MCV 96.0 (80.0-98.0) fL MCH 32.1 H (27.0-32.0) pg MCHC 33.4 (31.0-37.0) g/dL RDW Std Deviation 51.0 (28.0-62.0) fl RDW Coeff of Dean 15 (11.0-15.0) % Plt Count 211 (150-400) K/uL MPV 10.40 (7.40-12.00) fL Neut % (Auto) 91.8 H (48.0-80.0) % Lymph % (Auto) 3.7 L (16.0-40.0) % [place] % (Auto) 4.4 (0.0-15.0) % Eos % (Auto) 0.0 (0.0-7.0) % Baso % (Auto) 0.1 (0.0-1.5) % Neut # (Auto) 10.6 H (1.4-5.7) K/uL Lymph # (Auto) 0.4 L (0.6-2.4) K/uL [place] # (Auto) 0.5 (0.0-0.8) K/uL Eos # (Auto) 0.0 (0.0-0.7) K/uL Baso # (Auto) 0.0 (0.0-0.1) K/uL Nucleated RBC % 0.0 /100WBC Nucleated RBCs # 0 K/uL Sodium (136-146) mmol/L Potassium (3.5-5.1) mmol/L Chloride (98-110) mmol/L Carbon Dioxide (21-31) mmol/L BUN (6.0-23.0) mg/dL Creatinine (0.6-1.5) mg/dL Est Cr Clr Drug Dosing mL/min Estimated GFR (MDRD) ml/min Glucose (60-110) mg/dL Calcium (8.8-10.8) mg/dL Total Bilirubin (0.1-1.5) mg/dL AST (5-40) IU/L ALT (8-54) IU/L Alkaline Phosphatase (40-150) Troponin I < 0.10 < 0.10 (0.0-0.29) NG/ML Total Protein (6.0-8.0) g/dL Albumin (3.4-4.8) g/dL Globulin (2.0-3.5) g/dL Albumin/Globulin Ratio (1.3-2.8) 06/08/17 Range/Units 06:10 WBC (4.0-11.0) K/uL RBC (4.50-5.90) M/uL Hgb (13.0-17.0) g/dL Hct (38.0-50.0) % MCV (80.0-98.0) fL MCH (27.0-32.0) pg MCHC (31.0-37.0) g/dL RDW Std Deviation (28.0-62.0) fl RDW Coeff of Dean (11.0-15.0) % Plt Count (150-400) K/uL MPV (7.40-12.00) fL Neut % (Auto) (48.0-80.0) % Lymph % (Auto) (16.0-40.0) % [place] % (Auto) (0.0-15.0) % Eos % (Auto) (0.0-7.0) % Baso % (Auto) (0.0-1.5) % Neut # (Auto) (1.4-5.7) K/uL Lymph # (Auto) (0.6-2.4) K/uL [place] # (Auto) (0.0-0.8) K/uL Eos # (Auto) (0.0-0.7) K/uL Baso # (Auto) (0.0-0.1) K/uL Nucleated RBC % /100WBC Nucleated RBCs # K/uL Sodium 139 (136-146) mmol/L Potassium 3.7 (3.5-5.1) mmol/L Chloride 98 (98-110) mmol/L Carbon Dioxide 31 (21-31) mmol/L BUN 30 H (6.0-23.0) mg/dL Creatinine 1.0 (0.6-1.5) mg/dL Est Cr Clr Drug Dosing 73.15 mL/min Estimated GFR (MDRD) > 60.0 ml/min Glucose 202 H (60-110) mg/dL Calcium 9.5 (8.8-10.8) mg/dL Total Bilirubin 0.5 (0.1-1.5) mg/dL AST 30 (5-40) IU/L ALT 48 (8-54) IU/L Alkaline Phosphatase 69 (40-150) Troponin I (0.0-0.29) NG/ML Total Protein 6.0 (6.0-8.0) g/dL Albumin 3.5 (3.4-4.8) g/dL Globulin 2.5 (2.0-3.5) g/dL Albumin/Globulin Ratio 1.4 (1.3-2.8) Med Orders - Current: Current Medications Acetaminophen (Tylenol) 650 mg PO Q4H PRN PRN Reason: Pain (Mild 1-3)/fever Last Admin: 06/08/17 01:52 Dose: 650 mg Albuterol/Ipratropium (Duoneb 3.0-0.5 Mg/3 Ml) 3 ml NEB Q6HRRT PRN PRN Reason: Shortness Of Breath/wheezing Last Admin: 06/06/17 09:06 Dose: 3 ml Albuterol/Ipratropium (Duoneb 3.0-0.5 Mg/3 Ml) 3 ml NEB Q4HRRT REPLACED BY [facility] Last Admin: 06/08/17 12:03 Dose: 3 ml Allopurinol (Zyloprim) 300 mg PO DAILY REPLACED BY [facility] Last Admin: 06/08/17 08:26 Dose: 300 mg Azithromycin (Zithromax) 250 mg PO Q24H REPLACED BY [facility] Last Admin: 06/08/17 08:32 Dose: 250 mg Diltiazem HCl (Diltiazem) 15 mg IVPUSH Q3H PRN PRN Reason: HR above 110 Last Admin: 06/08/17 06:54 Dose: 15 mg Diphenhydramine HCl (Benadryl) 50 mg PO BEDTIME REPLACED BY [facility] Last Admin: 06/07/17 20:08 Dose: 50 mg Fluoxetine HCl (Prozac) 20 mg PO DAILY REPLACED BY [facility] Last Admin: 06/08/17 08:26 Dose: 20 mg Furosemide (Lasix) 40 mg PO BID REPLACED BY [facility] Last Admin: 06/08/17 08:27 Dose: 40 mg Guaifenesin (Mucinex) 600 mg PO TID REPLACED BY [facility] Last Admin: 06/08/17 05:12 Dose: 600 mg Heparin Sodium (Porcine) (Heparin Sodium) 5,000 units SUBCUT Q8H REPLACED BY [facility] Last Admin: 06/08/17 06:55 Dose: 5,000 units Lisinopril (Prinivil) 20 mg PO DAILY REPLACED BY [facility] Last Admin: 06/08/17 08:26 Dose: 20 mg Lorazepam (Ativan) 1 mg PO DAILY REPLACED BY [facility] Last Admin: 06/08/17 08:26 Dose: 1 mg Magnesium Hydroxide (Milk Of Magnesia) 30 ml PO Q12H PRN PRN Reason: Constipation Methylprednisolone Sodium Succinate (Solu-Medrol) 60 mg IVPUSH Q8H REPLACED BY [facility] Last Admin: 06/08/17 12:03 Dose: 60 mg Montelukast Sodium (Singulair) 10 mg PO BEDTIME REPLACED BY [facility] Last Admin: 06/07/17 20:08 Dose: 10 mg Ondansetron HCl (Zofran Odt) 4 mg PO Q4H PRN PRN Reason: nausea, able to take PO Ondansetron HCl (Zofran) 4 mg IVPUSH Q4H PRN PRN Reason: Nausea Pantoprazole Sodium (Protonix Iv) 40 mg IVPUSH Q24H REPLACED BY [facility] Last Admin: 06/07/17 22:45 Dose: 40 mg Fluticasone/ (Vilanterol 1 Puff) 1 each INH DAILY REPLACED BY [facility] Last Admin: 06/08/17 08:33 Dose: 1 each Umeclidinium [place] (1 Puff) 1 each INH DAILY REPLACED BY [facility] Last Admin: 06/08/17 08:33 Dose: 1 each Potassium Chloride (Klor-Con 10) 10 meq PO BID REPLACED BY [facility] Last Admin: 06/08/17 08:26 Dose: 10 meq Sodium Chloride (Saline Flush) 10 ml FLUSH ASDIRECTED PRN PRN Reason: Keep Vein Open Sodium Chloride (Saline Flush) 2.5 ml FLUSH ASDIRECTED PRN PRN Reason: Keep Vein Open Sodium Chloride (Sodium Chloride 0.9%) 3 ml INH TID REPLACED BY [facility] Last Admin: 06/08/17 05:38 Dose: 3 ml Tamsulosin HCl (Flomax) 0.4 mg PO BEDTIME REPLACED BY [facility] Last Admin: 06/07/17 20:08 Dose: 0.4 mg Discontinued Medications Albuterol/Ipratropium (Duoneb 3.0-0.5 Mg/3 Ml) 3 ml NEB ONETIME ONE Stop: 06/03/17 21:43 Last Admin: 06/03/17 21:51 Dose: 3 ml Albuterol/Ipratropium (Duoneb 3.0-0.5 Mg/3 Ml) 3 ml NEB ONETIME ONE Stop: 06/06/17 02:07 Last Admin: 06/06/17 02:22 Dose: 3 ml Albuterol/Ipratropium (Duoneb 3.0-0.5 Mg/3 Ml) 3 ml NEB Q6HRRT REPLACED BY [facility] Last Admin: 06/07/17 06:03 Dose: 3 ml Digoxin (Lanoxin) Confirm Administered Dose 500 mcg .ROUTE .STK-MED ONE Stop: 06/07/17 09:05 Last Admin: 06/07/17 09:29 Dose: Not Given Diltiazem HCl (Diltiazem) 15 mg IVPUSH ONETIME ONE Stop: 06/07/17 09:19 Last Admin: 06/07/17 09:24 Dose: 15 mg Sodium Chloride (Normal Saline) 500 mls @ 999 mls/hr IV STAT REPLACED BY [facility] Last Admin: 06/03/17 22:00 Dose: 999 mls/hr Sodium Chloride (Normal Saline) 1,000 mls @ 125 mls/hr IV ASDIRECTED REPLACED BY [facility] Last Admin: 06/03/17 23:18 Dose: 125 mls/hr Lorazepam (Ativan) 1 mg PO TID PRN PRN Reason: Anxiety Methylprednisolone Sodium Succinate (Solu-Medrol) 125 mg IVPUSH ONETIME ONE Stop: 06/03/17 21:43 Last Admin: 06/03/17 22:01 Dose: 125 mg Methylprednisolone Sodium Succinate (Solu-Medrol) 60 mg IVPUSH Q6H REPLACED BY [facility] Last Admin: 06/04/17 04:57 Dose: 60 mg Methylprednisolone Sodium Succinate (Solu-Medrol) 60 mg IVPUSH Q6H REPLACED BY [facility] Last Admin: 06/05/17 05:33 Dose: 60 mg Methylprednisolone Sodium Succinate (Solu-Medrol) 60 mg IVPUSH ONETIME ONE Stop: 06/06/17 02:05 Last Admin: 06/06/17 02:23 Dose: 60 mg Methylprednisolone Sodium Succinate (Solu-Medrol) 60 mg IVPUSH Q12H REPLACED BY [facility] Last Admin: 06/07/17 04:49 Dose: 60 mg Morphine Sulfate (Morphine) 2 mg IVPUSH Q2H PRN PRN Reason: Pain (severe 7-10) Stop: 06/04/17 23:23 Morphine Sulfate (Morphine) 2 mg IVPUSH Q2H PRN PRN Reason: Pain (severe 7-10) Stop: 06/04/17 23:23 Non-Formulary Medication (Fluticasone/Vilanterol) 1 puff INH DAILY REPLACED BY [facility] Last Admin: 06/04/17 09:22 Dose: 1 puff Non-Formulary Medication (Potassium Chloride [Potassium Chloride]) 10 meq PO BID REPLACED BY [facility] Last Admin: 06/04/17 09:22 Dose: 10 meq Non-Formulary Medication (Umeclidinium [place]) 1 puff INH DAILY REPLACED BY [facility] Last Admin: 06/04/17 09:22 Dose: 1 puff Prednisone (Prednisone) 40 mg PO WITHBREAKFAST REPLACED BY [facility] Last Admin: 06/06/17 08:48 Dose: 40 mg *Q Meaningful Use (DIS) - VTE *Q VTE Criteria *Q: - Stroke *Q Stroke Criteria *Q: - AMI *Q AMI Criteria *Q: <Dexter Farr J - Last Filed: 06/12/17 07:34> - Patient Data Vitals - Most Recent: Last Vital Signs Temp 37.2 C 06/08/17 11:52 Pulse 107 H 06/08/17 11:52 Resp 16 06/08/17 11:52 BP 138/64 06/08/17 11:52 Pulse Ox 92 L 06/08/17 11:52 Med Orders - Current: Current Medications Discontinued Medications Acetaminophen (Tylenol) 650 mg PO Q4H PRN PRN Reason: Pain (Mild 1-3)/fever Last Admin: 06/08/17 01:52 Dose: 650 mg Albuterol/Ipratropium (Duoneb 3.0-0.5 Mg/3 Ml) 3 ml NEB ONETIME ONE Stop: 06/03/17 21:43 Last Admin: 06/03/17 21:51 Dose: 3 ml Albuterol/Ipratropium (Duoneb 3.0-0.5 Mg/3 Ml) 3 ml NEB Q6HRRT PRN PRN Reason: Shortness Of Breath/wheezing Last Admin: 06/06/17 09:06 Dose: 3 ml Albuterol/Ipratropium (Duoneb 3.0-0.5 Mg/3 Ml) 3 ml NEB ONETIME ONE Stop: 06/06/17 02:07 Last Admin: 06/06/17 02:22 Dose: 3 ml Albuterol/Ipratropium (Duoneb 3.0-0.5 Mg/3 Ml) 3 ml NEB Q6HRRT REPLACED BY [facility] Last Admin: 06/07/17 06:03 Dose: 3 ml Albuterol/Ipratropium (Duoneb 3.0-0.5 Mg/3 Ml) 3 ml NEB Q4HRRT REPLACED BY [facility] Last Admin: 06/08/17 12:03 Dose: 3 ml Allopurinol (Zyloprim) 300 mg PO DAILY REPLACED BY [facility] Last Admin: 06/08/17 08:26 Dose: 300 mg Azithromycin (Zithromax) 250 mg PO Q24H REPLACED BY [facility] Last Admin: 06/08/17 08:32 Dose: 250 mg Digoxin (Lanoxin) Confirm Administered Dose 500 mcg .ROUTE .STK-MED ONE Stop: 06/07/17 09:05 Last Admin: 06/07/17 09:29 Dose: Not Given Diltiazem HCl (Diltiazem) 15 mg IVPUSH ONETIME ONE Stop: 06/07/17 09:19 Last Admin: 06/07/17 09:24 Dose: 15 mg Diltiazem HCl (Diltiazem) 15 mg IVPUSH Q3H PRN PRN Reason: HR above 110 Last Admin: 06/08/17 06:54 Dose: 15 mg Diphenhydramine HCl (Benadryl) 50 mg PO BEDTIME REPLACED BY [facility] Last Admin: 06/07/17 20:08 Dose: 50 mg Fluoxetine HCl (Prozac) 20 mg PO DAILY REPLACED BY [facility] Last Admin: 06/08/17 08:26 Dose: 20 mg Furosemide (Lasix) 40 mg PO BID REPLACED BY [facility] Last Admin: 06/08/17 08:27 Dose: 40 mg Guaifenesin (Mucinex) 600 mg PO TID REPLACED BY [facility] Last Admin: 06/08/17 05:12 Dose: 600 mg Heparin Sodium (Porcine) (Heparin Sodium) 5,000 units SUBCUT Q8H REPLACED BY [facility] Last Admin: 06/08/17 06:55 Dose: 5,000 units Sodium Chloride (Normal Saline) 500 mls @ 999 mls/hr IV STAT REPLACED BY [facility] Last Admin: 06/03/17 22:00 Dose: 999 mls/hr Sodium Chloride (Normal Saline) 1,000 mls @ 125 mls/hr IV ASDIRECTED REPLACED BY [facility] Last Admin: 06/03/17 23:18 Dose: 125 mls/hr Lisinopril (Prinivil) 20 mg PO DAILY REPLACED BY [facility] Last Admin: 06/08/17 08:26 Dose: 20 mg Lorazepam (Ativan) 1 mg PO TID PRN PRN Reason: Anxiety Lorazepam (Ativan) 1 mg PO DAILY REPLACED BY [facility] Last Admin: 06/08/17 08:26 Dose: 1 mg Magnesium Hydroxide (Milk Of Magnesia) 30 ml PO Q12H PRN PRN Reason: Constipation Methylprednisolone Sodium Succinate (Solu-Medrol) 125 mg IVPUSH ONETIME ONE Stop: 06/03/17 21:43 Last Admin: 06/03/17 22:01 Dose: 125 mg Methylprednisolone Sodium Succinate (Solu-Medrol) 60 mg IVPUSH Q6H REPLACED BY [facility] Last Admin: 06/04/17 04:57 Dose: 60 mg Methylprednisolone Sodium Succinate (Solu-Medrol) 60 mg IVPUSH Q6H REPLACED BY [facility] Last Admin: 06/05/17 05:33 Dose: 60 mg Methylprednisolone Sodium Succinate (Solu-Medrol) 60 mg IVPUSH ONETIME ONE Stop: 06/06/17 02:05 Last Admin: 06/06/17 02:23 Dose: 60 mg Methylprednisolone Sodium Succinate (Solu-Medrol) 60 mg IVPUSH Q12H REPLACED BY [facility] Last Admin: 06/07/17 04:49 Dose: 60 mg Methylprednisolone Sodium Succinate (Solu-Medrol) 60 mg IVPUSH Q8H REPLACED BY [facility] Last Admin: 06/08/17 12:03 Dose: 60 mg Montelukast Sodium (Singulair) 10 mg PO BEDTIME REPLACED BY [facility] Last Admin: 06/07/17 20:08 Dose: 10 mg Morphine Sulfate (Morphine) 2 mg IVPUSH Q2H PRN PRN Reason: Pain (severe 7-10) Stop: 06/04/17 23:23 Morphine Sulfate (Morphine) 2 mg IVPUSH Q2H PRN PRN Reason: Pain (severe 7-10) Stop: 06/04/17 23:23 Non-Formulary Medication (Fluticasone/Vilanterol) 1 puff INH DAILY REPLACED BY [facility] Last Admin: 06/04/17 09:22 Dose: 1 puff Non-Formulary Medication (Potassium Chloride [Potassium Chloride]) 10 meq PO BID REPLACED BY [facility] Last Admin: 06/04/17 09:22 Dose: 10 meq Non-Formulary Medication (Umeclidinium [place]) 1 puff INH DAILY REPLACED BY [facility] Last Admin: 06/04/17 09:22 Dose: 1 puff Ondansetron HCl (Zofran Odt) 4 mg PO Q4H PRN PRN Reason: nausea, able to take PO Ondansetron HCl (Zofran) 4 mg IVPUSH Q4H PRN PRN Reason: Nausea Pantoprazole Sodium (Protonix Iv) 40 mg IVPUSH Q24H REPLACED BY [facility] Last Admin: 06/07/17 22:45 Dose: 40 mg Fluticasone/ (Vilanterol 1 Puff) 1 each INH DAILY REPLACED BY [facility] Last Admin: 06/08/17 08:33 Dose: 1 each Umeclidinium [place] (1 Puff) 1 each INH DAILY REPLACED BY [facility] Last Admin: 06/08/17 08:33 Dose: 1 each Potassium Chloride (Klor-Con 10) 10 meq PO BID REPLACED BY [facility] Last Admin: 06/08/17 08:26 Dose: 10 meq Prednisone (Prednisone) 40 mg PO WITHBREAKFAST REPLACED BY [facility] Last Admin: 06/06/17 08:48 Dose: 40 mg Sodium Chloride (Saline Flush) 10 ml FLUSH ASDIRECTED PRN PRN Reason: Keep Vein Open Sodium Chloride (Saline Flush) 2.5 ml FLUSH ASDIRECTED PRN PRN Reason: Keep Vein Open Sodium Chloride (Sodium Chloride 0.9%) 3 ml INH TID REPLACED BY [facility] Last Admin: 06/08/17 05:38 Dose: 3 ml Tamsulosin HCl (Flomax) 0.4 mg PO BEDTIME REPLACED BY [facility] Last Admin: 06/07/17 20:08 Dose: 0.4 mg *Q Meaningful Use (DIS) - VTE *Q VTE Criteria *Q: - Stroke *Q Stroke Criteria *Q: - AMI *Q AMI Criteria *Q: - Free Text/Narrative Note: I have examined the patient. I have discussed findings and treatment plan with the resident. I agree with the assessment and plan outlined in the following resident's note.
== END 2017-06-08 13:12 | disposition home or self-care (01) | DRG 192 ==
LOC: MW.ED 09:50 → MW.MS 21:26 → UNDOADMOB 23:18 → MW.MS 23:18 → OBSVTOIN 06-06 10:38 → INTOOBSV 06-06 10:38 → UNDOADMIN 06-06 23:18 → MW.ED 06-08 13:12 → UNDODISIN 06-08 13:12
PROVIDERS: ADMIT Internal Medicine; ATTEND Internal Medicine
DX: J44.1 Chronic obstructive pulmonary disease with (acute) exacerbation (principal); R09.02 Hypoxemia; D72.828 Other elevated white blood cell count; R07.9 Chest pain, unspecified; F41.8 Other specified anxiety disorders; R00.0 Tachycardia, unspecified; I50.9 Heart failure, unspecified; I10 Essential (primary) hypertension; K21.9 Gastro-esophageal reflux disease without esophagitis; H81.01 Meniere's disease, right ear; Z79.52 Long term (current) use of systemic steroids; Z88.2 Allergy status to sulfonamides; Z79.899 Other long term (current) drug therapy; Z87.891 Personal history of nicotine dependence
CPT/HCPCS: 36415 ×4; 71045 ×2; 80053 ×4; 83605; 83735; 83880; 84484; 85025 ×4; 87070; 87205; 87804 ×2; 93005 ×2; 94640 ×4; 94664; 96361; 96374; 99285; A9270 ×35; C9113 ×3; J1644 ×8; J2920; J2930 ×6; J7040 ×2; 71046; 71046-26; 82553; 96372; 96375; 96376; 99284; G0378; J3490

== ENCOUNTER 2017-06-08 23:48 | Emergency (ER) | payer MEDICARE, BC ==
--- NOTE | 2017-06-08 23:54 | EDM.PDOC ---
ED HPI GENERAL MEDICAL PROBLEM - General Stated Complaint: SHORTNESS OF BREATH Time Seen by Provider: 06/08/17 23:52 - History of Present Illness INITIAL COMMENTS - FREE TEXT/NARRATIVE: HISTORY AND PHYSICAL: History of present illness: Patient is a 61-year-old male history of COPD and congestive heart failure was just discharged from the hospital today Amadeo returns with severe respiratory distress by paramedics his saturation was in his 70s per paramedics she was given albuterol and ipratropium nebulizer as well as Solu-Medrol 125 mg IV there 's been no significant improvement is in severe distress on arrival speaking in short several word sentences. His saturation on 100% nonrebreather and a high 80s to 90 he remains in severe distress. I discussed with patient mechanical ventilation and he is in agreement he was intubated via rapid sequence intubation there was good color change status post intubation breath sounds were equal stat portable chest x-ray is pending Review of systems: As per history of present illness and below otherwise all systems reviewed and negative. Past medical history: As per history of present illness and as reviewed below otherwise noncontributory. Surgical history: As per history of present illness and as reviewed below otherwise noncontributory. Social history: No reported history of drug or alcohol abuse. Family history: As per history of present illness and as reviewed below otherwise noncontributory. Physical exam: HEENT: Atraumatic, normocephalic, pupils reactive, negative for conjunctival pallor or scleral icterus, mucous membranes moist, throat clear, neck supple, nontender, trachea midline. Lungs: Coarse markedly diminished, breath sounds equal bilaterally, chest nontender. Heart: S1S2, regular, negative for clicks, rubs, or JVD. Abdomen: Soft, nondistended, nontender. Negative for masses or hepatosplenomegaly. Negative for costovertebral tenderness. Pelvis: Stable nontender. Genitourinary: Deferred. Rectal: Deferred. Extremities: Atraumatic, negative for cords or calf pain. Neurovascular unremarkable. Neuro: Awake, alert, oriented. Limited exam moves all extremity follows commands grossly nonfocal Diagnostics: CBC CMP troponin PT/INR influenza screen ABG chest x-ray EKG Therapeutics: IV O2 monitor Impression: #1 respiratory distress with impending ventilatory failure Definitive disposition and diagnosis as appropriate pending reevaluation and review of above. - Related Data Allergies Allergy/AdvReac Type Severity Reaction Status Date / Time Sulfa (Sulfonamide Allergy Hives Verified 06/03/17 21:37 Antibiotics) Home Meds: Home Meds Allopurinol [Zyloprim] 300 mg PO DAILY 04/18/15 [History] FLUoxetine [PROzac] 20 mg PO DAILY 04/18/15 [History] LORazepam 1 mg PO TID PRN 04/18/15 [History] Furosemide 40 mg PO BID 02/12/17 [History] Lisinopril 20 mg PO DAILY 02/12/17 [History] Fluticasone/Vilanterol [Breo Ellipta 200-25 Mcg INH] 1 puff INH DAILY 03/04/17 [ History] Montelukast [Singulair] 10 mg PO BEDTIME 03/04/17 [History] Umeclidinium [place] [Incruse Ellipta*] 1 puff INH DAILY 03/04/17 [History] Albuterol [Proair HFA] 2 puff INH ASDIRECTED PRN 05/23/17 [History] Omeprazole 20 mg PO DAILY 05/23/17 [History] Potassium Chloride 10 meq PO BID 05/23/17 [History] Tamsulosin HCl [Flomax] 0.4 mg PO BEDTIME 05/23/17 [History] Albuterol Sulfate 2.5 mg INH Q4HR PRN 06/03/17 [History] Naproxen 500 mg PO BID 06/03/17 [History] Polyethylene Glycol 3350 [MiraLAX] 17 gm PO DAILY 06/03/17 [History] diphenhydrAMINE [Benadryl] 50 mg PO BEDTIME 06/03/17 [History] Azithromycin [IMW: Azithromycin] 250 mg PO ASDIRECTED 30 Days #15 tab 06/08/17 [ Rx] Prednisone [IMW: predniSONE] 40 mg PO WITHBREAKFAST 10 Days #10 tab 06/08/17 [Rx ] Past Medical History HEENT History: Reports: Cataract, Other (See Below) Other HEENT History: 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, Vertigo, wears glasses Cardiovascular History: Reports: Heart Failure, Hypertension, SOB on Exertion Respiratory History: Reports: COPD, Sleep Apnea Other Respiratory History: cpap, oxygen dependent @ 2lpm Gastrointestinal History: Reports: GERD Other Gastrointestinal History: diverticulitis Genitourinary History: Reports: BPH Musculoskeletal History: Reports: Gout Neurological History: Reports: Vertigo Psychiatric History: Reports: Anxiety, Depression Endocrine/Metabolic History: Reports: Obesity/BMI 30+ Hematologic History: Reports: None Immunologic History: Reports: None Oncologic (Cancer) History: Reports: None Dermatologic History: Reports: None - Infectious Disease History Infectious Disease History: Reports: Chicken Pox, Measles, Mumps - Past Surgical History Head Surgeries/Procedures: Reports: None HEENT Surgical History: Reports: Cataract Surgery Other HEENT Surgeries/Procedures: deaf in right ear, stent in neck for right ear - menieres Cardiovascular Surgical History: Reports: None Respiratory Surgical History: Reports: None GI Surgical History: Reports: Hernia, Abdominal, Hernia, Inguinal Other GI Surgeries/Procedures: hernia x3 Male Surgical History: Reports: None Endocrine Surgical History: Reports: None Neurological Surgical History: Reports: Other (See Below) Other Neurological Surgeries/Procedures: neck fusion Musculoskeletal Surgical History: Reports: Knee Replacement Other Musculoskeletal Surgeries/Procedures:: right total knee Social & Family History - Family History Family Medical History: Noncontributory HEENT: Reports: None Cardiac: Reports: Hypertension Respiratory: Reports: Asthma, COPD GI: Reports: None : Reports: None OBGYN: Reports: None Musculoskeletal: Reports: None Neurological: Reports: None Psychiatric: Reports: None Endocrine/Metabolic: Reports: Diabetes, type II Hematologic: Reports: None Immunologic: Reports: None Dermatologic: Reports: None Oncologic: Reports: Other (See Below) Other Oncologic Family History: sister had cancer but he wouldn't know which type - Tobacco Use Smoking Status *Q: Former Smoker Years of Tobacco use: 48 Used Tobacco, but Quit: Yes Month Tobacco Last Used: 6 years ago Second Hand Smoke Exposure: No - Caffeine Use Caffeine Use: Reports: Coffee Caffeine Use Comment: takes 1 pot - Recreational Drug Use Recreational Drug Use: No ED ROS GENERAL - Review of Systems Review Of Systems: ROS reveals no pertinent complaints other than HPI. ED EXAM, GENERAL - Physical Exam Exam: See Below (The dictation) Course - Orders/Labs/Meds Meds: Medications Discontinued Medications Generic Name Dose Route Start Last Admin Trade Name Freq PRN Reason Stop Dose Admin Propofol Confirm 06/09/17 00:04 Diprivan 50 Ml Administered 06/09/17 00:05 Dose 50 mls @ as directed .ROUTE .STK-MED ONE Departure - Departure Time of Disposition: 00:15 Disposition: DC/Tfer to Acute Hospital 02 Condition: Critical Clinical Impression: COPD exacerbation, Ventilatory failure - Discharge Information
[2017-06-09 00:25] VITALS: BP 173/150
[2017-06-09 00:47] LABS: CHLORIDE,CL 104 mmol/L (98-110); SODIUM,NA 142 mmol/L (136-146)
[2017-06-09] MEDS ORDERED: Propofol 200 MG/20 ML SDV IVPUSH ONE (04:19)
[2017-06-09] MEDS ORDERED: Sodium Chloride 0.9% 1,000 ML IV ONE (04:21)
[2017-06-09] MEDS ORDERED: Etomidate 2 MG/ML 20 ML SDV IVPUSH ONE (04:22)
[2017-06-09] MEDS ORDERED: Succinylcholine 200 MG/10 ML MDV IV STA (04:24)
[2017-06-09] MEDS ORDERED: Rocuronium 50 MG/5 ML Vial IVPUSH ONE (04:25)
--- NOTE | 2017-06-10 18:08 | CR ---
EXAM DATE: 06/08/17 PATIENT'S AGE: 61 Patient: ASTER BURNETT Facility: [place], [place] Site . Site : 1955 Study: XRay Chest [id number]/18/2018 12:22:14 AM Ordering Physician: Vianey Eastman Final Report: INDICATION: Respiratory distress TECHNIQUE: Chest radiograph 1 view COMPARISON: 06/07/2017 FINDINGS: Mediastinum: The heart silhouette is normal in size and morphology. The mediastinum is normal in appearance. ET tube has its tip 5.4 cm from the rivera. Lungs: The pulmonary vessels are mildly prominent in appearance in the right lower lung zone with minimal right basilar atelectasis. No pneumothorax is identified. Bones and soft tissue: Unremarkable for age. IMPRESSION: 1. There has been no significant interval changes. Dictated by Arun Banerjee MD @ 06/09/2017 12:24:16 AM Dictated by: Arun Banerjee MD @ 06/09/2017 00:24:20 (Electronic Signature) Report Signed by Proxy. [facility]
== END 2017-06-09 00:56 ==
LOC: MW.ED 23:48
DX: J44.1 Chronic obstructive pulmonary disease with (acute) exacerbation (principal); R06.03 Acute respiratory distress; I11.0 Hypertensive heart disease with heart failure; I50.9 Heart failure, unspecified; G47.30 Sleep apnea, unspecified; F32.9 Major depressive disorder, single episode, unspecified; Z87.891 Personal history of nicotine dependence; Z79.899 Other long term (current) drug therapy; Z88.2 Allergy status to sulfonamides; Z99.81 Dependence on supplemental oxygen
CPT/HCPCS: 31500; 36415; 51702; 71045; 80053; 81001; 84484; 85025; 85610; 93005; 96361; 96365; 96374; 96375; 99291; J0330; J7040; 43753; 99284; J2704